=== PATIENT | female | born 1965 | race Caucasian/White ===

== ENCOUNTER 2021-12-16 11:33 | Outpatient (REF) | payer OTHER, SELFPAY | END 2021-12-16 11:34 | disposition home or self-care (01) | LOC: HO.LNP 11:33 | PROVIDERS: Visit Provider Hospitalist | DX: Z11.3 Encounter for screening for infections with a predominantly sexual mode of transmission (principal) | CPT/HCPCS: 87086 ==

== ENCOUNTER 2021-12-23 12:09 | Outpatient (REF) | payer OTHER, SELFPAY | END 2021-12-23 12:10 | disposition home or self-care (01) | LOC: HO.LNP 12:09 | PROVIDERS: Visit Provider Hospitalist | DX: N32.81 Overactive bladder (principal); Z11.3 Encounter for screening for infections with a predominantly sexual mode of transmission | CPT/HCPCS: 87086 ==

== ENCOUNTER 2021-12-26 12:11 | Inpatient (IN) | payer OTHER, SELFPAY ==
--- NOTE | ~2021-12-26 | CT_ITS ---
EXAMINATION: CT-GUIDED RETROPERITONEAL LYMPH NODE BIOPSY CLINICAL INFORMATION: Lymphadenopathy and peritoneal disease. Bilateral hydronephrosis. COMPARISON: Previous CT of the abdomen and pelvis 12/26/2021. TECHNIQUE: The procedure risks and benefits including bleeding and infection were discussed with the patient and informed consent was obtained. The patient was positioned in the prone position. Limited axial images through the lower abdomen were performed. The left back was prepped and draped in the usual sterile fashion. The skin and soft tissues were anesthetized with 1% lidocaine plain. Using CT guidance and a coaxial system, access to an enlarged left retroperitoneal lymph node was obtained. Five 20-gauge core biopsies and two 22-gauge FNA specimens were obtained. The patient received Versed 2 mg and fentanyl 100 mcg intravenously during the procedure. Conscious sedation was provided by a registered nurse under my direct supervision with continuous hemodynamic monitoring. Total sedation time was 32 minutes. FINDINGS: There is an enlarged left retroperitoneal lymph node that was targeted for core biopsy and fine-needle aspiration. There are bilateral internal ureteral stents. There is air in the renal collecting systems likely related to recent stent placement. CT/CT guided FNA IMPRESSION: CT-guided left retroperitoneal lymph node biopsy and fine-needle aspiration.
--- NOTE | ~2021-12-26 | CT_ITS ---
EXAMINATION: CT ABDOMEN AND PELVIS WITHOUT CONTRAST CLINICAL INFORMATION: Acute renal failure COMPARISON: None TECHNIQUE: Multidetector volumetric imaging was performed from the superior aspect of the liver through the pubic symphysis. Sagittal and coronal reformatted images were obtained on the technologist's workstation. This CT examination was performed using dose optimization techniques as appropriate, variously including the following: *Automated exposure control *Adjustment of mA and/or kV according to patient size (this includes techniques or standardized protocols for targeted exams where dose is matched to indication/reason for exam; i.e. extremities or head) *Use of iterative reconstruction technique DLP: 1020 mGy-cm FINDINGS: LUNG BASES: The visualized lung bases are unremarkable. LIVER, GALLBLADDER, AND BILIARY TREE: Heterogeneous low-attenuation change within the liver suspicious for either infiltrative metastatic disease and/or geographic hepatic steatosis. No biliary dilatation. Gallbladder unremarkable. PANCREAS: Unremarkable. SPLEEN: Unremarkable. ADRENAL GLANDS: Unremarkable. KIDNEYS AND URETERS: [id number] bilateral hydronephrosis and hydroureter. Both ureters are mildly dilated throughout their course all the way to the bladder. While the left ureter courses adjacent to malignant lymphadenopathy in the retroperitoneum, this does not appear to be a cause of ureteral obstruction on the left. Mild bilateral perinephric stranding. BLADDER: Collapsed and poorly assessed. GASTROINTESTINAL TRACT / PERITONEUM: Sigmoid colonic diverticulosis. There is focal thickening of the midportion of the sigmoid colon (see porter images) concerning for a sigmoid colonic mass. There is adjacent left iliac chain lymphadenopathy. Multiple peritoneal implants identified within the deep pelvis and bilateral lower quadrants as well as within the anterior pelvic peritoneal reflexion. LYMPH NODES: No pathologically enlarged left iliac chain and retroperitoneal lymph nodes are present, most notably in the left para-aortic region. ABDOMINAL WALL: No significant hernia is appreciated. PELVIC VISCERA: Uterus and ovaries are unremarkable from a nonenhanced CT standpoint. VASCULAR: Aorta atherosclerotic but normal caliber. OSSEOUS STRUCTURES: There is a lucent lesion in the S1 vertebral body associated with superior endplate collapse. This could represent intervertebral disc herniation or pathologic fracture. A smaller lucency is present within the T10 vertebral body subjacent to the superior endplate with mild superior plate fracturing. CT/CT abdomen pelvis wo IV con IMPRESSION: * Probable sigmoid colonic mass. 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 Scattered peritoneal implants most notably in the bilateral lower quadrants. One of the peritoneal implants or pathologic lymph nodes would be fairly easy to sample by CT-guided biopsy. * [id number] hydronephrosis and perinephric stranding as well as hydroureter leading to the bladder, without clear mechanical obstructive etiology evident. It is possible that peritoneal implants in the region of the ureterovesical junctions could be the etiology. * Heterogeneously attenuating hepatic parenchyma concerning for infiltrative metastatic disease and/or hepatic steatosis. * Possible osseous metastases, particularly within the S1 vertebral body with accompanying fracturing of the superior endplate.
--- NOTE | ~2021-12-26 | CT_ITS ---
EXAMINATION: CT-GUIDED RETROPERITONEAL LYMPH NODE BIOPSY CLINICAL INFORMATION: Lymphadenopathy and peritoneal disease. Bilateral hydronephrosis. COMPARISON: Previous CT of the abdomen and pelvis 12/26/2021. TECHNIQUE: The procedure risks and benefits including bleeding and infection were discussed with the patient and informed consent was obtained. The patient was positioned in the prone position. Limited axial images through the lower abdomen were performed. The left back was prepped and draped in the usual sterile fashion. The skin and soft tissues were anesthetized with 1% lidocaine plain. Using CT guidance and a coaxial system, access to an enlarged left retroperitoneal lymph node was obtained. Five 20-gauge core biopsies and two 22-gauge FNA specimens were obtained. The patient received Versed 2 mg and fentanyl 100 mcg intravenously during the procedure. Conscious sedation was provided by a registered nurse under my direct supervision with continuous hemodynamic monitoring. Total sedation time was 32 minutes. FINDINGS: There is an enlarged left retroperitoneal lymph node that was targeted for core biopsy and fine-needle aspiration. There are bilateral internal ureteral stents. There is air in the renal collecting systems likely related to recent stent placement. CT/CT biopsy abdomen percutaneous IMPRESSION: CT-guided left retroperitoneal lymph node biopsy and fine-needle aspiration.
--- NOTE | ~2021-12-26 | FL_ITS ---
EXAMINATION: XR FLUOROSCOPY WITH IMAGES CLINICAL INFORMATION: Cystoscopy. Stent placement. COMPARISON: 12/26/2021 TECHNIQUE: Fluoroscopy performed by Dr. Deshawn Kinney. Fluoroscopy time: 55.6 seconds. Cumulative Dose: 41.02 mGy. Images: 5. FINDINGS: There is cannulation of the right ureter. Injection of contrast which shows a dilated ureter. A right ureteral stent is placed. There is then injection of contrast on the left showing a dilated ureter. A left ureteral stent is placed. FL/FL guidance in OR IMPRESSION: Fluoroscopic guidance for bilateral pyelogram and ureteral stent placement. Please refer to procedural report for further information.
--- NOTE | ~2021-12-26 | CT_ITS ---
EXAMINATION: CT-GUIDED RETROPERITONEAL LYMPH NODE BIOPSY CLINICAL INFORMATION: Lymphadenopathy and peritoneal disease. Bilateral hydronephrosis. COMPARISON: Previous CT of the abdomen and pelvis 12/26/2021. TECHNIQUE: The procedure risks and benefits including bleeding and infection were discussed with the patient and informed consent was obtained. The patient was positioned in the prone position. Limited axial images through the lower abdomen were performed. The left back was prepped and draped in the usual sterile fashion. The skin and soft tissues were anesthetized with 1% lidocaine plain. Using CT guidance and a coaxial system, access to an enlarged left retroperitoneal lymph node was obtained. Five 20-gauge core biopsies and two 22-gauge FNA specimens were obtained. The patient received Versed 2 mg and fentanyl 100 mcg intravenously during the procedure. Conscious sedation was provided by a registered nurse under my direct supervision with continuous hemodynamic monitoring. Total sedation time was 32 minutes. FINDINGS: There is an enlarged left retroperitoneal lymph node that was targeted for core biopsy and fine-needle aspiration. There are bilateral internal ureteral stents. There is air in the renal collecting systems likely related to recent stent placement. CT/CT guided needle placement IMPRESSION: CT-guided left retroperitoneal lymph node biopsy and fine-needle aspiration.
[2021-12-26 13:30] VITALS: PULSE 129; RESP 18; TEMP 36.7; O2SAT 98; BMI 49.4
[2021-12-26 13:39] VITALS: BP 200/110
--- NOTE | 2021-12-26 17:12 | ED_ITS ---
HPI - Female Genitourinary General Chief complaint: Urogenital-Female Stated complaint: Urinary Issue Time Seen by Provider: 12/26/21 16:28 Source: patient Mode of arrival: ambulatory History of Present Illness HPI Narrative: 56-year-old female with a past medical history of recurrent UTIs presenting to the ED complaining of urinary frequency/urgency and intermittent dysuria and hematuria since yesterday. Admits was recently treated for to UTI with Macrobid followed by Bactrim however cultures are not growing anything. Also reports some urinary retention, has been unable to supply UA since ED arrival which patient reports is due to anxiety. Denies fever, chills, nausea, vomiting, abdominal pain, flank pain MD elicited complaint: dysuria and UTI Related Data Home Medications Medication Instructions Recorded Confirmed No Known Home Meds 12/16/21 12/16/21 Allergies Allergy/AdvReac Type Severity Reaction Status Date / Time neomycin Allergy Intermediate Rash Verified 12/16/21 12:30 parafin wax Allergy Intermediate Rash Uncoded 12/26/21 13:49 Review of Systems Review of Systems: Constitutional: No Fever, No Chills, No Malaise ENT/Mouth: No Hearing loss, No Ear Pain, No sore throat, No Rhinorrhea, No Swall owing Difficulty Eyes: No Eye Pain, No Swelling, No Redness Cardiovascular: No Chest Pain, No SOB, No Palpitations Respiratory: No Cough, No Sputum, No Wheezing, No Smoke Exposure, No Dyspnea Gastrointestinal: No Nausea, No Vomiting, No Diarrhea, No Constipation, No Abdominal pain Genitourinary: No irregular bleeding, + Dysuria, + Urinary Frequency, No Hematuria, No Urinary Incontinence/retention, + Urgency, No Flank Pain, No Urinary Flow Changes, No Hesitancy Musculoskeletal: No joint pain, No Myalgias, No Joint Swelling Skin: No Skin Lesions, No rash Neuro: No Weakness, No Headache Yes all other systems are reviewed and are negative Constitutional: Constitutional: Reports as per [facility] Past Medical History Attestation statement: The following information was validated with the patient. Social History Social History Patient Tobacco Use Status: Never used Tobacco Advance Directives: No Advance Directives Information Provided: No Physical Exam Vital Signs: Vital Signs: Last Vital Signs Temp 97.7 F 12/26/21 17:30 Pulse 118 H 12/26/21 19:54 Resp 14 12/26/21 19:54 BP 222/109 H 12/26/21 19:54 Pulse Ox 96 12/26/21 19:54 O2 Del Method 12/26/21 19:54 BMI result Body Mass Index 49.4 Const: General: cooperative, healthy appearing, no acute distress, alert, awake, Physically active and anxious Orientation/consciousness: patient oriented x3 Limitations: no limitations HEENT: Head: Yes normal to inspection and Yes atraumatic Ears: hearing gr ossly normal bilaterally General nose exam: Normal external nose present Face and sinus: Yes normal facial exam Eyes: General: appearance normal, both eyes and all related structures EOM: EOMs intact bilaterally Neck: Neck: Yes normal visual inspection and Yes no meningeal signs Resp: Effort & Inspection: normal respiratory effort and no respiratory distr ess Auscultation: clear to auscultation bilaterally Cardio: Rate: regular rate Heart sounds: S1 normal heart sound present and S2 normal heart sound present GI: Inspection: Yes normal to inspection Palpation (GI): Soft to palpation, nontender, no guarding and not rigid : General: Yes no CVA tenderness Back/Spine/Pelvis: Back: no CVA tenderness Skin: Rashes: no rashes Wounds: no wounds Neuro: General: patient oriented x3, tone normal and no meningeal signs Gait exam (Neuro): Normal gait present Extrem: General: Yes normal to inspection Course Course Course Narrative: -1732--bladder scan had 12 cc > will obtain CBC/BMP to evaluate renal function and p.o. hydrate patient so she can provide urine sample -2019--patient is in acute renal failure with a BUN of 76 and Creatinine 11.49 > possibly from urinary retention versus hypertensive emergency. Likely subacute. 10mg of IV labetalol ordered. Patient is nontoxic appearing, ambulating in the ED, still has not supplied urine. Infection is now suspected > will obtain additional bladder scan after patient has void trial as well as CT. Noted leukocytosis of 15.4. Empiric IV Rocephin ordered 2099--ED care transferred to Dr. Quezada pending CT, UA, BP control, and admission MDM - Female Genitourinary MDM Narrative Medical decision making narrative: 56-year-old female with a past medical history of recurrent UTIs presenting to the ED complaining of urinary frequency/urgency and intermittent dysuria and hematuria since yesterday. On exam anxious, hypertensive and tachycardic likely from anxiety & patient reports history of white coat syndrome and chronic tachycardia, NAD, nontoxic appearing, abdomen soft/nontender, no CVA tenderness. Concern for cystitis vs UTI. Low suspicion for pyelonephritis/renal stone or appendicitis/diverticulitis. Low suspicion for severe sepsis at this time Plan: UA, bladder scan Differential Diagnosis Differential diagnosis: Likely urinary tract infection and vaginitis Medical Records Attestation: I reviewed the patient's medical records. Lab Data Attestation: I reviewed the patient's lab results. Result diagrams: 12/26/21 19:49 12/26/21 19:49 Labs: Lab Results 12/26/21 12/26/21 Range/Units 19:49 19:49 WBC 15.4 H (4.8-10.8) X10*3/uL RBC 4.45 (4.20-5.50) X10*6/uL Hgb 12.1 (12.0-16.0) g/dl Hct 36.1 L (37.0-47.0) % MCV 81.1 (80.0-98.0) fL MCH 27.2 (27.0-33.0) pg MCHC 33.5 (31.0-35.0) g/dl RDW 14.0 (11.0-16.0) % Plt Count 250 (160-400) X10*3/uL MPV 8.8 L (9.4-12.3) fL Immature Gran % (Auto) 0.7 H (0.0-0.4) % Neut % (Auto) 78.6 H (45-73) % Lymph % (Auto) 15.5 L (20-40) % [place] % (Auto) 4.1 (2-11) % Eos % (Auto) 0.8 (0-4) % Baso % (Auto) 0.3 (0-2) % Lymph # (Auto) 2.4 (1.2-4.9) X10*3/uL [place] # (Auto) 0.6 (0.1-1.2) X10*3/uL Eos # (Auto) 0.1 (0.0-0.4) X10*3/uL Baso # (Auto) 0.0 (0.0-0.2) X10*3/uL Abs Immat Gran (auto) 0.11 H (0.00-0.03) X10*3/uL Absolute Neuts (auto) 12.1 H (2.0-8.3) x10*3/uL Absolute Nucleated RBC 0.000 (0.0-0.012) X10*3/uL Nucleated RBC % (auto) 0.0 (0.0-0.2) /100WBC Sodium 137 (135-145) mmol/L Potassium 4.5 (3.3-5.1) mmol/L Chloride 103 (96-108) mmol/L Carbon Dioxide 13 L (22-29) mmol/L Anion Gap 26 H (12-20) BUN 76 H (9-16) mg/dL Creatinine 11.49 H* (0.5-1.4) mg/dL Estim Creat Clear Calc 6.9 Estimated GFR 3 Random Glucose 130 H (60-115) mg/dL Calcium 8.6 (8.4-10.2) mg/dL Magnesium 2.0 (1.6-2.6) mg/dL Total Bilirubin 0.7 (0.0-1.0) mg/dL Direct Bilirubin 0.3 (0.0-0.5) mg/dL AST 34 H (5-31) U/L ALT 51 H (0-31) U/L Alkaline Phosphatase 214 H (39-117) U/L Total Protein 6.7 (6.5-8.0) g/dL Albumin 3.8 (3.5-5.0) g/dL Lipase 46 (8-78) U/L ECG Data Attestation: I personally reviewed and interpreted this ECG as follows: ECG interpretation date: 12/26/21 ECG interpretation time: 20:47 Interpretation: EKG sinus tachycardia rate of 117. QTC 449. No STEMI. Critical Care Time Critical Care Time Critical Care Time: Yes Total Critical Care Time: 45 Attestation: I have personally provided critical care time exclusive of time spent on separately billable procedures. Time includes review of lab data, radiology results, discussion with consultants, and monitoring for potential decompensation. Intervention performed as documented. Discharge Plan Discharge Clinical Impression: Acute renal failure, Hypertensive emergency Patient Disposition: Admitted As Inpatient
[2021-12-26 17:30] VITALS: BP 207/101; PULSE 119; RESP 20; TEMP 36.5; O2SAT 97
[2021-12-26] MEDS: LORazepam 0.5 MG TABLET PO (18:46)
--- NOTE | 2021-12-26 18:47 | PC.NURSE ---
Provider aware of BP
[2021-12-26] MEDS: 0.9 % Sodium Chloride 1,000 ML 999 ML IV ×2 (19:51→22:05)
[2021-12-26 19:54] VITALS: BP 222/109; PULSE 118; RESP 14; O2SAT 96
[2021-12-26 19:55] LABS: MANUAL DIFF FLAG NO
[2021-12-26 19:57] LABS: Basophils Percent Auto 0.3 % (0-2); Eosinophils Absolute Auto 0.1 X10*3/uL (0.0-0.4); Eosinophils Percent Auto 0.8 % (0-4); Hematocrit 36.1 % (37.0-47.0); Hemoglobin 12.1 g/dl (12.0-16.0); Imm Gran Abs Auto 0.11 X10*3/uL (0.00-0.03); Imm Gran Pct Auto 0.7 % (0.0-0.4); Lymphocytes Absolute Auto 2.4 X10*3/uL (1.2-4.9); Lymphocytes Percent Auto 15.5 % (20-40); Mean Corpuscular HGB Conc 33.5 g/dl (31.0-35.0); Mean Corpuscular Hemoglobin 27.2 pg (27.0-33.0); Mean Corpuscular Volume 81.1 fL (80.0-98.0); Mean Platelet Volume 8.8 fL (9.4-12.3); Monocytes Absolute Auto 0.6 X10*3/uL (0.1-1.2); Monocytes Percent Auto 4.1 % (2-11); Neutrophils Absolute Auto 12.1 x10*3/uL (2.0-8.3); Neutrophils Percent Auto 78.6 % (45-73); Platelet Count 250 X10*3/uL (160-400); Red Blood Count 4.45 X10*6/uL (4.20-5.50); White Blood Count 15.4 X10*3/uL (4.8-10.8)
[2021-12-26 20:15] LABS: Anion Gap 26 (12-20); Blood Urea Nitrogen 76 mg/dL (9-16); Calcium 8.6 mg/dL (8.4-10.2); Carbon Dioxide 13 mmol/L (22-29); Chloride 103 mmol/L (96-108); Creatinine Clr Calc Pharmacy 6.9; Estimated Glomerular Filt Rate 3; Glucose Random 130 mg/dL (60-115); Potassium 4.5 mmol/L (3.3-5.1); Sodium 137 mmol/L (135-145)
[2021-12-26 20:34] LABS: Alanine Aminotransferase 51 U/L (0-31); Albumin Level 3.8 g/dL (3.5-5.0); Alkaline Phosphatase 214 U/L (39-117); Aspartate Amino Transferase 34 U/L (5-31); Bilirubin Direct 0.3 mg/dL (0.0-0.5); Bilirubin Total 0.7 mg/dL (0.0-1.0); Lipase 46 U/L (8-78); Total Protein 6.7 g/dL (6.5-8.0)
--- NOTE | 2021-12-26 20:35 | ECG_ITS ---
Test Reason : HTN Blood Pressure : / mmHG Vent. Rate : 117 BPM Atrial Rate : 117 BPM P-R Int : 138 ms QRS Dur : 070 ms QT Int : 322 ms P-R-T Axes : 051 035 050 degrees QTc Int : 449 ms Sinus tachycardia Possible Left atrial enlargement Borderline ECG No previous ECGs available Referred By: Jane Wayne Electronically Signed By:ERROL MIRELES
[2021-12-26] MEDS: Labetalol HCL 100 MG/20 ML VIAL 10 MG IVPUSH (21:05)
--- NOTE | 2021-12-26 21:05 | PC.NURSE ---
Original order for labetalol was unavailable in the pyxis. Called pharmacy and they adjusted order accordingly. Duplicate orders in, provider aware.
[2021-12-26] MEDS: Sodium Bicarbonate 8.4% 50 MEQ/50 ML SYRINGE IVPUSH (22:05)
[2021-12-26 22:14] VITALS: BP 108/75; PULSE 83; RESP 18; TEMP 36.8; O2SAT 96
[2021-12-26 22:22] LABS: Lactic Acid 0.7 mmol/L (0.5-2.0)
[2021-12-26 22:33] LABS: Anion Gap 27 (12-20); Blood Urea Nitrogen 76 mg/dL (9-16); Calcium 8.3 mg/dL (8.4-10.2); Carbon Dioxide 10 mmol/L (22-29); Chloride 104 mmol/L (96-108); Creatinine Clr Calc Pharmacy 6.9; Estimated Glomerular Filt Rate 3; Glucose Random 140 mg/dL (60-115); Potassium 4.8 mmol/L (3.3-5.1); Sodium 136 mmol/L (135-145)
[2021-12-26 22:35] LABS: COVID-19 Test Negative (Negative)
[2021-12-26 22:39] LABS: INTERNATIONAL NORM RATIO 1.2 (0.9-1.1); Prothrombin Time 13.7 SEC (10.0-13.1)
--- NOTE | 2021-12-26 22:57 | PM.IMHP ---
History of Present Illness Date of Service: 12/26/21 Chief Complaint: Urinary incontinence 56-year-old with no significant past medical history presented to the hospital today with a chief complaint of difficulty urination. Patient mentioned that over the past 2 months she has been having urinary complaints, has been having urinary frequency urgency initially, has seen urgent care at least couple times and has received antibiotics as outpatient. Denies any fevers and chills. Denies any abdominal pain. Denies any chest pain or palpitations. Denies any prior history of hypertension, reports he has white coat hypertension. Denies taking any home medications. Denies any smoking or illicit drug use. Denies any headaches blurry visions, numbness tingling or focal weakness. Review of all other systems is negative except mentioned above ER course: Per ER team patient's urinalysis was negative, exam was benign, on labs noted to have elevated creatinine of 1.49, low bicarb; patient was started on bicarb drip. CT scan showed pelvic mass-sigmoid colon mass/retroperitoneal lymphadenopathy/moderate hydronephrosis and perinephric stranding as well as hydroureter leading to the bladder without tear mechanical obstructive etiology possible osseous metastasis. Concerning for cancer. Urology Dr. Kinney was notified-recommended judicious fluids and will place a stent in the morning. Admitted for further management PMFSH Pertinent family history: Father has heart disease Surgical History (Updated 12/31/21 @ 18:34 by Kai Hall MD) History of tonsillectomy [place] teeth extracted Social History (Updated 12/28/21 @ 16:58 by Iman León MD) Household Members: Other Household Members Other:: roommate Housing: House Do you presently have visiting nurse or other home services: No Patient Tobacco Use Status: Never used Tobacco service: No Current occupational status: employed Meds Allergies Allergy/AdvReac Type Severity Reaction Status Date / Time neomycin Allergy Intermediate Rash Verified 12/16/21 12:30 paraben Allergy Rash Verified 12/30/21 07:28 Active Medications: Current Medications Sodium Bicarbonate 150 meq/ (Dextrose) 1,000 mls @ 100 mls/hr IV .Q10H OMID Physical Exam Vital Signs and Narrative: Vital Signs: Last Vital Signs Temp 98.3 F 12/26/21 22:14 Pulse 83 12/26/21 22:14 Resp 18 12/26/21 22:14 BP 108/75 12/26/21 22:14 Pulse Ox 96 12/26/21 22:14 O2 Del Method 12/26/21 22:14 BMI result Body Mass Index 49.4 Gen: Appears be in no acute distress HEENT: NCAT, Moist mucosa. Pulmonary: Vesicular breath sounds, fair air entry CVS: Normal S1-S2 Abdomen: BS+, Soft, Nontender Extremities: Warm well perfused Neuro: Alert and awake. Results Labs CBC and Chem 7: 01/02/22 06:03 01/02/22 06:03 Labs: Laboratory Results - last 24 hr 12/26/21 12/26/21 12/26/21 19:49 19:49 21:59 MCV 81.1 MCH 27.2 MCHC 33.5 RDW 14.0 Plt Count 250 MPV 8.8 L Immature Gran % (Auto) 0.7 H Neut % (Auto) 78.6 H Lymph % (Auto) 15.5 L [place] % (Auto) 4.1 Eos % (Auto) 0.8 Baso % (Auto) 0.3 Lymph # (Auto) 2.4 [place] # (Auto) 0.6 Eos # (Auto) 0.1 Baso # (Auto) 0.0 Abs Immat Gran (auto) 0.11 H Absolute Neuts (auto) 12.1 H Absolute Nucleated RBC 0.000 Nucleated RBC % (auto) 0.0 PT 13.7 H INR 1.2 H Anion Gap 26 H Estim Creat Clear Calc 6.9 Estimated GFR 3 Random Glucose 130 H Lactic Acid Calcium 8.6 Magnesium 2.0 Total Bilirubin 0.7 Direct Bilirubin 0.3 AST 34 H ALT 51 H Alkaline Phosphatase 214 H Total Protein 6.7 Albumin 3.8 Lipase 46 COVID-19 ([facility]) COVID-19 Clin Com 12/26/21 12/26/21 12/26/21 21:59 21:59 22:00 MCV MCH MCHC RDW Plt Count MPV Immature Gran % (Auto) Neut % (Auto) Lymph % (Auto) [place] % (Auto) Eos % (Auto) Baso % (Auto) Lymph # (Auto) [place] # (Auto) Eos # (Auto) Baso # (Auto) Abs Immat Gran (auto) Absolute Neuts (auto) Absolute Nucleated RBC Nucleated RBC % (auto) PT INR Anion Gap 27 H Estim Creat Clear Calc 6.9 Estimated GFR 3 Random Glucose 140 H Lactic Acid 0.7 Calcium 8.3 L Magnesium Total Bilirubin Direct Bilirubin AST ALT Alkaline Phosphatase Total Protein Albumin Lipase COVID-19 ([facility]) Negative COVID-19 Clin Com See Note Assessment and Plan (1) FLOR (acute kidney injury): Status: Acute Plan 56-year-old with no significant past medical history presented to the hospital today with a chief complaint of difficulty urination. CT abdomen showed moderate hydronephrosis/perinephric stranding/hydroureter/retroperitoneal lymphadenopathy/sigmoid colonic mass/bony metastasis. Admitted to the hospital for further management Difficulty urination/moderate hydronephrosis/hydroureter/hydronephrotic stranding: Patient has mild leukocytosis. Received ceftriaxone. UA pending. Will continue antibiotics based on the UA results. urology Dr. Kinney was notified-mentioned -will place stent in the morning FLOR: Likely postrenal. Patient also noted a low serum bicarb. Started on serum bicarbonate drip. Nephrology consult Avoid nephrotoxins Sigmoid colon mass/retroperitoneal lymphadenopathy/bony metastasis/S1 endplate fracture: Oncology consult for further inputs. Will obtain CEA and AFP levels. Hypertensive urgency: Patient's systolic blood pressure in 200s on presentation. Denies being on any antihypertensives at home. Labetalol p.r.n.. Patient received amlodipine 5 mg. DVT prophylaxis: Subcu heparin Code status: Full code Quality Stroke Does the patient have a stroke diagnosis?: No VTE Prior VTE?: No VTE Risk Level:: Medical - moderate - high VTE Device Contraindication: Treatment Not Indicated VTE Drug Contraindication: N/A - Med Ordered
[2021-12-26 23:02] VITALS: BP 204/104; PULSE 111; RESP 28; O2SAT 96
[2021-12-26] MEDS: Sodium Bicarbonate 8.4% 150 MEQ in Dextrose 5 % 850 ML 100 MEQ IV (23:21)
[2021-12-26] MEDS: Heparin Sodium,Porcine 5,000 UNIT/ML VIAL 5000 UNIT SUBCUT (23:32)
[2021-12-26] MEDS: amLODIPine Besylate 5 MG TABLET PO (23:32)
[2021-12-26] MEDS: 0.9 % Sodium Chloride Flush 3 ML SYRINGE IVFLUSH (23:33)
[2021-12-27] VITALS (10 sets, daily range): BP systolic 167–205; BP diastolic 80–111; PULSE 86–123; RESP 16–20; TEMP 36.7–37.4; O2SAT 94–97
[2021-12-27 05:01] LABS: Basophils Percent Auto 0.3 % (0-2); Eosinophils Absolute Auto 0.2 X10*3/uL (0.0-0.4); Hematocrit 35.3 % (37.0-47.0); Hemoglobin 11.8 g/dl (12.0-16.0); Imm Gran Abs Auto 0.11 X10*3/uL (0.00-0.03); Imm Gran Pct Auto 0.8 % (0.0-0.4); Lymphocytes Absolute Auto 2.3 X10*3/uL (1.2-4.9); Lymphocytes Percent Auto 15.8 % (20-40); MANUAL DIFF FLAG NO; Mean Corpuscular HGB Conc 33.4 g/dl (31.0-35.0); Mean Corpuscular Hemoglobin 27.1 pg (27.0-33.0); Mean Corpuscular Volume 81.1 fL (80.0-98.0); Mean Platelet Volume 8.6 fL (9.4-12.3); Monocytes Absolute Auto 0.6 X10*3/uL (0.1-1.2); Monocytes Percent Auto 4.2 % (2-11); Neutrophils Absolute Auto 11.4 x10*3/uL (2.0-8.3); Neutrophils Percent Auto 77.9 % (45-73); Platelet Count 231 X10*3/uL (160-400); Red Blood Count 4.35 X10*6/uL (4.20-5.50); Red Cell Distribution Width 13.9 % (11.0-16.0); White Blood Count 14.6 X10*3/uL (4.8-10.8)
[2021-12-27 05:29] LABS: Anion Gap 24 (12-20); Blood Urea Nitrogen 76 mg/dL (9-16); Carbon Dioxide 15 mmol/L (22-29); Chloride 103 mmol/L (96-108); Creatinine Clr Calc Pharmacy 6.9; Estimated Glomerular Filt Rate 3; Glucose Random 160 mg/dL (60-115); Potassium 4.5 mmol/L (3.3-5.1); Sodium 137 mmol/L (135-145)
--- NOTE | 2021-12-27 07:16 | PHA.MEDREC ---
Pharmacy Consult ? Medication Reconciliation Pharmacy has completed the medication reconciliation.
[2021-12-27] MEDS: Heparin Sodium,Porcine 5,000 UNIT/ML VIAL 5000 UNIT SUBCUT ×2 (08:30→16:14)
[2021-12-27] MEDS: amLODIPine Besylate 10 MG TABLET PO (09:53)
[2021-12-27] MEDS: Sodium Bicarbonate 8.4% 150 MEQ in Dextrose 5 % 850 ML 100 MEQ IV ×2 (09:53→23:01)
--- NOTE | 2021-12-27 10:57 | MHC.CM.PN ---
PT REPORTS SHE LIVES AT HOME AND A FRIEND IS CURRENTLY LIVING WITH HER SHE REPORTS SHE IS INDEPENDENT AND WORKS IN HEALTHCARE SHE DENIES USING DME OR HOME SERVICES PT REPORTS SHE HAS A HCP, NAMING HER FRIEND, SUSIE ARCOS HER AGENT PT REPORTS SHE IS COVID VACCINATED AND BOOSTED PT REPORTS SHE CURRENTLY IS NOT ESTABLISHED WITH A PCP BUT HAS A NEW PT APPT WITH [facility] ON Dec CURRENT DC PLAN IS HOME WITH NO SERVICES PT TO ARRANGE TRANSPORT PT REQUESTS THAT INFORMATION BE SHARED WITH THE FOLLOWING PEOPLE IF THEY CALL: SUSIE MANCIA
--- NOTE | 2021-12-27 11:09 | W.PM.OPN ---
Operative Note Operative Note Date of Service: 12/27/21 Narrative: Consulting complaint bilateral hydroureteronephrosis Alma Delia is a 56-year-old female Had been seen in urgent care for urgency and frequency of past few weeks Presented to the hospital with difficulty urinating Found to have bilateral hydronephrosis with elevated white count, deranged labs and a question of a metastatic process in the pelvis Current BP 200/92 BUN 76, creatinine 11
--- NOTE | 2021-12-27 11:12 | PM.UROCN ---
History of Present Illness Consult details Consult date: 12/27/21 Narrative: Consulting complaint bilateral hydroureteronephrosis Alma Delia is a 56-year-old female Had been seen in urgent care for urgency and frequency of past few weeks Presented to the hospital with difficulty urinating Found to have bilateral hydronephrosis with elevated white count, deranged labs and a question of a metastatic process in the pelvis Current BP 200/92 BUN 76, creatinine 11, potassium 4.5 Recommend Lopez catheter with IV fluid replacement for dehydration Will need bilateral retrograde and stent placement which can be schedule for tomorrow [facility] Social History Social History Household Members: Other Household Members Other:: roommate Housing: House Do you presently have visiting nurse or other home services: No Patient Tobacco Use Status: Never used Tobacco Use of substances other than those prescribed or required for medical reasons: No Have you been hit, kicked, punched, or otherwise hurt by someone within the past year? If so, by whom?: No Do you feel safe in your current relationship?: No Current Relationship Is there a partner from a previous relationship who is making you feel unsafe now?: No Are you made to feel afraid or neglected: No Advance Directives: No Advance Directives Information Provided: No Do you have thoughts of harming others: None Do you have a plan to hurt others: No Plan Recently lost weight without trying: Yes How much weight loss: 2-13 pounds Eating poorly because of decreased appetite: Yes Nutrition screen score: 4 Nutrition Risks: No Nutritional Risk Patient : No : No Poor oral hygiene: No service: No Current occupational status: employed Meds Allergies Allergy/AdvReac Type Severity Reaction Status Date / Time neomycin Allergy Intermediate Rash Verified 12/16/21 12:30 parafin wax Allergy Intermediate Rash Uncoded 12/26/21 13:49 Active Medications: Current Medications Acetaminophen (Acetaminophen 325 Mg Tablet) 650 mg PO Q6H PRN PRN Reason: Pain, Mild (Pain Scale 1-3) Amlodipine Besylate (Amlodipine Besylate 10 Mg Tablet) 10 mg PO DAILY [facility]; Protocol Last Admin: 12/27/21 09:53 Dose: 10 mg Heparin Sodium (Porcine) (Heparin Sodium,Porcine 5,000 Unit/Ml Vial) 5,000 unit SUBCUT Q8H [facility] Last Admin: 12/27/21 08:30 Dose: 5,000 unit Hydralazine HCl (Hydralazine Hcl 10 Mg Tablet) 10 mg PO TID [facility]; Protocol Sodium Bicarbonate 150 meq/ (Dextrose) 1,000 mls @ 100 mls/hr IV .Q10H [facility] Last Admin: 12/27/21 09:53 Dose: 100 mls/hr Labetalol HCl (Labetalol Hcl 100 Mg/20 Ml Vial) 10 mg IVPUSH Q4H PRN PRN Reason: BP>160/90 Melatonin (Melatonin 3 Mg Tablet) 6 mg PO BEDTIME PRN PRN Reason: Insomnia Sodium Chloride (0.9 % Sodium Chloride Flush 3 Ml Syringe) 3 ml IVFLUSH QSHIFT [facility] Last Admin: 12/27/21 06:58 Dose: Not Given Home Medications Medication Instructions Recorded Confirmed Last Taken Type No Known Home Meds 12/16/21 12/27/21 Unknown History Physical Exam Vital Signs: Vital Signs: Last Vital Signs Temp 99.3 F 12/27/21 09:38 Pulse 107 H 12/27/21 09:38 Resp 20 12/27/21 09:38 BP 202/92 H 12/27/21 09:38 Pulse Ox 96 12/27/21 09:38 O2 Del Method 12/27/21 09:38 BMI result Body Mass Index 49.4 Const: General: cooperative, healthy appearing, comfortable and no acute distress Orientation/consciousness: patient oriented x3 HEENT: Face and sinus: Yes normal facial exam Mouth: moist mucous membranes Neck: Neck: Yes normal visual inspection, Yes full ROM and Yes trachea midline Chest: Chest palpation & inspection: normal inspection of the chest Resp: Effort & Inspection: normal respiratory effort, able to speak in complete sentences and no respiratory distress GI: Inspection: Yes normal to inspection Back/Spine/Pelvis: Cervical Spine: normal cervical lordosis Thoracic/Lumbar Spine: thoracic and lumbar spine normal to inspection Skin: General skin exam: no rashes or lesions noted Neuro: General: patient oriented x3, tone normal and moves all extremities Extrem: General: Yes normal to inspection and Yes capillary refill normal Results Labs Result diagrams: 12/27/21 04:55 12/27/21 04:55 Labs: Abnormal lab results 12/26/21 12/26/21 12/26/21 Range/Units 19:49 19:49 21:59 WBC 15.4 H (4.8-10.8) X10*3/uL Hgb (12.0-16.0) g/dl Hct 36.1 L (37.0-47.0) % MPV 8.8 L (9.4-12.3) fL Immature Gran % (Auto) 0.7 H (0.0-0.4) % Neut % (Auto) 78.6 H (45-73) % Lymph % (Auto) 15.5 L (20-40) % Abs Immat Gran (auto) 0.11 H (0.00-0.03) X10*3/uL Absolute Neuts (auto) 12.1 H (2.0-8.3) x10*3/uL PT 13.7 H (10.0-13.1) SEC INR 1.2 H (0.9-1.1) Carbon Dioxide 13 L (22-29) mmol/L Anion Gap 26 H (12-20) BUN 76 H (9-16) mg/dL Creatinine 11.49 H* (0.5-1.4) mg/dL Random Glucose 130 H (60-115) mg/dL Calcium (8.4-10.2) mg/dL AST 34 H (5-31) U/L ALT 51 H (0-31) U/L Alkaline Phosphatase 214 H (39-117) U/L 12/26/21 12/27/21 12/27/21 Range/Units 22:00 04:55 04:55 WBC 14.6 H (4.8-10.8) X10*3/uL Hgb 11.8 L (12.0-16.0) g/dl Hct 35.3 L (37.0-47.0) % MPV 8.6 L (9.4-12.3) fL Immature Gran % (Auto) 0.8 H (0.0-0.4) % Neut % (Auto) 77.9 H (45-73) % Lymph % (Auto) 15.8 L (20-40) % Abs Immat Gran (auto) 0.11 H (0.00-0.03) X10*3/uL Absolute Neuts (auto) 11.4 H (2.0-8.3) x10*3/uL PT (10.0-13.1) SEC INR (0.9-1.1) Carbon Dioxide 10 L* D 15 L (22-29) mmol/L Anion Gap 27 H 24 H (12-20) BUN 76 H 76 H (9-16) mg/dL Creatinine 11.45 H* 11.45 H* (0.5-1.4) mg/dL Random Glucose 140 H 160 H (60-115) mg/dL Calcium 8.3 L 8.0 L (8.4-10.2) mg/dL AST (5-31) U/L ALT (0-31) U/L Alkaline Phosphatase (39-117) U/L Short CBC 12/26/21 12/27/21 Range/Units 19:49 04:55 WBC 15.4 H 14.6 H (4.8-10.8) X10*3/uL Hgb 12.1 11.8 L (12.0-16.0) g/dl Hct 36.1 L 35.3 L (37.0-47.0) % Plt Count 250 231 (160-400) X10*3/uL BMP 12/26/21 12/26/21 12/27/21 19:49 22:00 04:55 Sodium 137 136 137 Potassium 4.5 4.8 4.5 Chloride 103 104 103 Carbon Dioxide 13 L 10 L* D 15 L BUN 76 H 76 H 76 H Creatinine 11.49 H* 11.45 H* 11.45 H* Calcium 8.6 8.3 L 8.0 L Liver Function 12/26/21 Range/Units 19:49 Total Bilirubin 0.7 (0.0-1.0) mg/dL Direct Bilirubin 0.3 (0.0-0.5) mg/dL AST 34 H (5-31) U/L ALT 51 H (0-31) U/L Alkaline Phosphatase 214 H (39-117) U/L Albumin 3.8 (3.5-5.0) g/dL Urine 12/26/21 Range/Units 13:51 Urine Color Cancelled Urine Appearance Cancelled Urine pH Cancelled Ur Specific [place] Cancelled Urine Protein Cancelled Urine Glucose (UA) Cancelled All other labs normal. Assessment and Plan (1) Acute renal failure: Status: Acute (2) Hydroureteronephrosis: Status: Acute Plan Plan for cystoscopy, bilateral retrograde and stent placement tomorrow Procedures Date of Service Date of Service: 12/27/21
--- NOTE | 2021-12-27 11:39 | HO.PM.IMPN ---
Subjective Subjective Date of Service: 12/27/21 Interval History: no acute issues overnight. Blood pressure remains difficult to control Review of Systems denies chest pain Denies shortness of breath Denies nausea vomiting diarrhea Denies fever chills Physical Exam Vital Signs: Vital Signs: Last Vital Signs Temp 99.4 F 12/27/21 11:26 Pulse 99 12/27/21 11:26 Resp 16 12/27/21 11:26 BP 178/91 H 12/27/21 11:26 Pulse Ox 97 12/27/21 11:26 O2 Del Method 12/27/21 11:26 BMI result Body Mass Index 49.4 Const: Other: no acute distress Resp: Other: clear to auscultation bilaterally no rales rhonchi or wheezes Cardio: Other: no S4; positive S1-S2; no S3 murmurs rubs or gallops GI: Other: soft nontender nondistended with normoactive bowel sounds Extrem: Other: no edema bilaterally Objective Data Active Medications Acetaminophen (Acetaminophen 325 Mg Tablet) 650 mg PO Q6H PRN PRN Reason: Pain, Mild (Pain Scale 1-3) Amlodipine Besylate (Amlodipine Besylate 10 Mg Tablet) 10 mg PO DAILY [facility]; Protocol Last Admin: 12/27/21 09:53 Dose: 10 mg Documented By: SHANTI Heparin Sodium (Porcine) (Heparin Sodium,Porcine 5,000 Unit/Ml Vial) 5,000 unit SUBCUT Q8H [facility] Last Admin: 12/27/21 08:30 Dose: 5,000 unit Documented By: YSABEL Hydralazine HCl (Hydralazine Hcl 10 Mg Tablet) 10 mg PO TID [facility]; Protocol Sodium Bicarbonate 150 meq/ (Dextrose) 1,000 mls @ 100 mls/hr IV .Q10H [facility] Last Admin: 12/27/21 09:53 Dose: 100 mls/hr Documented By: SHANTI Labetalol HCl (Labetalol Hcl 100 Mg/20 Ml Vial) 10 mg IVPUSH Q4H PRN PRN Reason: BP>160/90 Melatonin (Melatonin 3 Mg Tablet) 6 mg PO BEDTIME PRN PRN Reason: Insomnia Sodium Chloride (0.9 % Sodium Chloride Flush 3 Ml Syringe) 3 ml IVFLUSH QSHIFT [facility] Last Admin: 12/27/21 06:58 Dose: Not Given Documented By: YSABEL Non-Admin Reason: Med Not Available Labs CBC & Chem 7: 12/27/21 04:55 12/27/21 04:55 Labs: Laboratory Results - last 24 hr 12/26/21 12/26/21 12/26/21 13:51 19:49 19:49 MCV 81.1 MCH 27.2 MCHC 33.5 RDW 14.0 Plt Count 250 MPV 8.8 L Immature Gran % (Auto) 0.7 H Neut % (Auto) 78.6 H Lymph % (Auto) 15.5 L [place] % (Auto) 4.1 Eos % (Auto) 0.8 Baso % (Auto) 0.3 Lymph # (Auto) 2.4 [place] # (Auto) 0.6 Eos # (Auto) 0.1 Baso # (Auto) 0.0 Abs Immat Gran (auto) 0.11 H Absolute Neuts (auto) 12.1 H Absolute Nucleated RBC 0.000 Nucleated RBC % (auto) 0.0 PT INR Anion Gap 26 H Estim Creat Clear Calc 6.9 Estimated GFR 3 Random Glucose 130 H Lactic Acid Calcium 8.6 Magnesium 2.0 Total Bilirubin 0.7 Direct Bilirubin 0.3 AST 34 H ALT 51 H Alkaline Phosphatase 214 H Total Protein 6.7 Albumin 3.8 Lipase 46 Carcinoembryonic Ag Urine Color Cancelled Urine Appearance Cancelled Urine pH Cancelled Ur Specific [place] Cancelled Urine Protein Cancelled Urine Glucose (UA) Cancelled Urine Ketones Cancelled Urine Blood Cancelled Urine Nitrite Cancelled Ur Leukocyte Esterase Cancelled COVID-19 ([facility]) COVID-19 Clin Com 12/26/21 12/26/21 12/26/21 21:59 21:59 21:59 MCV MCH MCHC RDW Plt Count MPV Immature Gran % (Auto) Neut % (Auto) Lymph % (Auto) [place] % (Auto) Eos % (Auto) Baso % (Auto) Lymph # (Auto) [place] # (Auto) Eos # (Auto) Baso # (Auto) Abs Immat Gran (auto) Absolute Neuts (auto) Absolute Nucleated RBC Nucleated RBC % (auto) PT 13.7 H INR 1.2 H Anion Gap Estim Creat Clear Calc Estimated GFR Random Glucose Lactic Acid 0.7 Calcium Magnesium Total Bilirubin Direct Bilirubin AST ALT Alkaline Phosphatase Total Protein Albumin Lipase Carcinoembryonic Ag Urine Color Urine Appearance Urine pH Ur Specific [place] Urine Protein Urine Glucose (UA) Urine Ketones Urine Blood Urine Nitrite Ur Leukocyte Esterase COVID-19 ([facility]) Negative COVID-19 Clin Com See Note 12/26/21 12/27/21 12/27/21 22:00 04:55 04:55 MCV 81.1 MCH 27.1 MCHC 33.4 RDW 13.9 Plt Count 231 MPV 8.6 L Immature Gran % (Auto) 0.8 H Neut % (Auto) 77.9 H Lymph % (Auto) 15.8 L [place] % (Auto) 4.2 Eos % (Auto) 1.0 Baso % (Auto) 0.3 Lymph # (Auto) 2.3 [place] # (Auto) 0.6 Eos # (Auto) 0.2 Baso # (Auto) 0.0 Abs Immat Gran (auto) 0.11 H Absolute Neuts (auto) 11.4 H Absolute Nucleated RBC 0.000 Nucleated RBC % (auto) 0.0 PT INR Anion Gap 27 H 24 H Estim Creat Clear Calc 6.9 6.9 Estimated GFR 3 3 Random Glucose 140 H 160 H Lactic Acid Calcium 8.3 L 8.0 L Magnesium Total Bilirubin Direct Bilirubin AST ALT Alkaline Phosphatase Total Protein Albumin Lipase Carcinoembryonic Ag Urine Color Urine Appearance Urine pH Ur Specific [place] Urine Protein Urine Glucose (UA) Urine Ketones Urine Blood Urine Nitrite Ur Leukocyte Esterase COVID-19 ([facility]) COVID-19 Clin Com 12/27/21 04:55 MCV MCH MCHC RDW Plt Count MPV Immature Gran % (Auto) Neut % (Auto) Lymph % (Auto) [place] % (Auto) Eos % (Auto) Baso % (Auto) Lymph # (Auto) [place] # (Auto) Eos # (Auto) Baso # (Auto) Abs Immat Gran (auto) Absolute Neuts (auto) Absolute Nucleated RBC Nucleated RBC % (auto) PT INR Anion Gap Estim Creat Clear Calc Estimated GFR Random Glucose Lactic Acid Calcium Magnesium Total Bilirubin Direct Bilirubin AST ALT Alkaline Phosphatase Total Protein Albumin Lipase Carcinoembryonic Ag 2.10 Urine Color Urine Appearance Urine pH Ur Specific [place] Urine Protein Urine Glucose (UA) Urine Ketones Urine Blood Urine Nitrite Ur Leukocyte Esterase COVID-19 ([facility]) COVID-19 Clin Com Assessment and Plan (1) Hydroureteronephrosis: Status: Acute (2) Acute renal failure: Status: Acute (3) Hypertension: Status: Acute (4) Colonic mass: Status: Acute Plan 56-year-old with no significant past medical history presented to the hospital today with a chief complaint of difficulty urination.? CT abdomen showed moderate hydronephrosis/perinephric stranding/hydroureter/retroperitoneal lymphadenopathy/sigmoid colonic mass/bony metastasis.Poorly controlled HTN on arrival 1.Hydroureteonephrosis -seen by Urology...stent in am -hebert cath -empirical ABTX 2.FLOR -likely secondary to obstructive uropathy -follow renals/divalents after stenting -continue Bicarb drip 3.Colonic Mass -CT guided Bx after stenting. -Oncology consult 4.HTN - poorly controlled - increase amlodipine; add hydralazine - adjust as indicated Full Code heparin will require ongoing hospitalization for IV antibiotics and surgical intervention of hydro ureteral nephrosis Quality Stroke Does the patient have a stroke diagnosis?: No VTE Prior VTE?: No VTE Risk Level:: Medical - moderate - high VTE Device Contraindication: Treatment Not Indicated VTE Drug Contraindication: N/A - Med Ordered
[2021-12-27] MEDS: hydrALAZINE HCl 20 MG/ML VIAL 5 MG IVPUSH (11:48)
[2021-12-27] MEDS: Piperacillin Sodium/Tazobactam 2.25 GM in 0.9 % Sodium Chloride 50 ML IV ×2 (12:31→21:20)
[2021-12-27] MEDS: LORazepam 1 MG TABLET PO (13:58)
[2021-12-27] MEDS: 0.9 % Sodium Chloride Flush 3 ML SYRINGE IVFLUSH (16:14)
[2021-12-27] MEDS: hydrALAZINE HCl 10 MG TABLET PO ×2 (16:14→21:21)
--- NOTE | 2021-12-27 17:13 | PC.NURSE ---
Unable to insert hebert catheter. Pt is resistent to another try by different RN. Dr Huff notified and asked to attempt again. Per pt request prior to hebert, Ativan ordered and given. @nd RN attempted to insert hebert. No drainage from bag and pt bladder scanned for 40ml. Dr Huff in to see pt. Will leave hebert out at this time. Pt has been voiding in small amounts in bathroom today.
[2021-12-27] MEDS: Labetalol HCL 100 MG/20 ML VIAL 10 MG IVPUSH (17:49)
--- NOTE | 2021-12-27 18:49 | P.CONNP_ITS ---
History of Present Illness Reason for Consult Consult date: 12/27/21 Chief Complaint Chief complaint: FLOR History of Present Illness Narrative: 56-year-old with no significant past medical history presented to the hospital today with a chief complaint of difficulty urination.?Over the past 2 months she has been having urinary complaints, has been having urinary frequency urgency initially, has seen urgent care at least couple times and has received antibiotics as outpatient.? Denies any fevers and chills.? Denies any abdominal pain.? Denies any chest pain or palpitations.? Denies any prior history of hypertension.? Denies taking any home medications.?Denies any smoking or illicit drug use.?Denies any headaches blurry visions, numbness tingling or focal weakness.?In the ER patient's urinalysis was negative, exam was benign, on labs noted to have elevated creatinine of 11.49, low bicarb; patient was started on bicarb drip.?CT scan showed pelvic mass-sigmoid colon mass/retroperitoneal lymphadenopathy/moderate hydronephrosis and perinephric stranding as well as hydroureter leading to the bladder without tear mechanical obstructive etiology possible osseous metastasis.? Admitted for further management. Nephrology has been consulted to assist in her clinical care during her current hospital stay Review of Systems Review of Systems Yes all other systems are reviewed and are negative PMFSH Social History Social History Household Members: Other Household Members Other:: roommate Housing: House Do you presently have visiting nurse or other home services: No Patient Tobacco Use Status: Never used Tobacco Use of substances other than those prescribed or required for medical reasons: No Have you been hit, kicked, punched, or otherwise hurt by someone within the past year? If so, by whom?: No Do you feel safe in your current relationship?: No Current Relationship Is there a partner from a previous relationship who is making you feel unsafe now?: No Are you made to feel afraid or neglected: No Advance Directives: No Advance Directives Information Provided: No Do you have thoughts of harming others: None Do you have a plan to hurt others: No Plan Recently lost weight without trying: Yes How much weight loss: 2-13 pounds Eating poorly because of decreased appetite: Yes Nutrition screen score: 4 Nutrition Risks: No Nutritional Risk Patient : No : No Poor oral hygiene: No service: No Current occupational status: employed Meds Allergies Allergy/AdvReac Type Severity Reaction Status Date / Time neomycin Allergy Intermediate Rash Verified 12/16/21 12:30 parafin wax Allergy Intermediate Rash Uncoded 12/26/21 13:49 Active Medications: Current Medications Acetaminophen (Acetaminophen 325 Mg Tablet) 650 mg PO Q6H PRN PRN Reason: Pain, Mild (Pain Scale 1-3) Amlodipine Besylate (Amlodipine Besylate 10 Mg Tablet) 10 mg PO DAILY [facility]; Protocol Last Admin: 12/27/21 09:53 Dose: 10 mg Heparin Sodium (Porcine) (Heparin Sodium,Porcine 5,000 Unit/Ml Vial) 5,000 unit SUBCUT Q8H [facility] Last Admin: 12/27/21 16:14 Dose: 5,000 unit Hydralazine HCl (Hydralazine Hcl 10 Mg Tablet) 10 mg PO TID [facility]; Protocol Last Admin: 12/27/21 16:14 Dose: 10 mg Sodium Bicarbonate 150 meq/ (Dextrose) 1,000 mls @ 100 mls/hr IV .Q10H [facility] Last Admin: 12/27/21 09:53 Dose: 100 mls/hr Piperacillin Sod/Tazobactam (Sod 2.25 gm/ Sodium Chloride) 50 mls @ 100 mls/hr IV Q8H [facility] Last Infusion: 12/27/21 13:05 Dose: Infused Labetalol HCl (Labetalol Hcl 100 Mg/20 Ml Vial) 10 mg IVPUSH Q4H PRN PRN Reason: BP>160/90 Last Admin: 12/27/21 17:49 Dose: 10 mg Melatonin (Melatonin 3 Mg Tablet) 6 mg PO BEDTIME PRN PRN Reason: Insomnia Oxycodone HCl (Oxycodone Hcl Immed Release 5 Mg Tablet) 5 mg PO Q4H PRN PRN Reason: Pain, Moderate (Pain Scale 4-6 Sodium Chloride (0.9 % Sodium Chloride Flush 3 Ml Syringe) 3 ml IVFLUSH QSHIFT [facility] Last Admin: 12/27/21 16:14 Dose: 3 ml Home Medications Medication Instructions Recorded Confirmed Last Taken Type No Known Home Meds 12/16/21 12/27/21 Unknown History Physical Exam Vital Signs: Last Vital Signs Temp 98.3 F 12/27/21 15:19 Pulse 91 12/27/21 18:15 Resp 18 12/27/21 15:19 BP 167/84 H 12/27/21 18:15 Pulse Ox 96 12/27/21 15:19 O2 Del Method 12/27/21 15:19 BMI result Body Mass Index 49.4 Const General: no acute distress Orientation/consciousness: patient oriented x3 Eyes EOM: EOMs intact bilaterally Neck Neck: Yes supple Resp Auscultation: diminished lung sounds Cardio Rate: regular rate GI Palpation (GI): Soft to palpation Neuro General: patient oriented x3 and moves all extremities Results Lab Results Result Diagrams: 12/27/21 04:55 12/27/21 04:55 Lab results: Chemistry 12/26/21 12/26/21 12/27/21 19:49 22:00 04:55 Sodium 137 136 137 Potassium 4.5 4.8 4.5 Carbon Dioxide 13 L 10 L* D 15 L BUN 76 H 76 H 76 H Creatinine 11.49 H* 11.45 H* 11.45 H* Calcium 8.6 8.3 L 8.0 L Hematology 12/26/21 12/27/21 19:49 04:55 WBC 15.4 H 14.6 H Hgb 12.1 11.8 L Plt Count 250 231 Urinalysis 12/26/21 13:51 Urine Color Cancelled Urine Appearance Cancelled Urine pH Cancelled Ur Specific [place] Cancelled Urine Protein Cancelled Urine Glucose (UA) Cancelled Urine Ketones Cancelled Urine Blood Cancelled Urine Nitrite Cancelled Ur Leukocyte Esterase Cancelled Assessment and Plan (1) Acute renal failure: Status: Acute Plan FLOR due to obstructive uropathy Metabolically acidotic and hypertensive Urology seen. Going for stenting Getting IV bicarb & anti hypertensives No indication for renal replacement today Discussed all these in detail All questions answered. Labs AM Procedures Date of Service Date of Service: 12/27/21
[2021-12-28] VITALS (16 sets, daily range): BP systolic 154–198; BP diastolic 70–107; PULSE 94–117; RESP 16–22; TEMP 36.1–37.1; O2SAT 94–97
[2021-12-28] MEDS: 0.9 % Sodium Chloride Flush 3 ML SYRINGE IVFLUSH ×2 (00:08→09:01)
[2021-12-28] MEDS: Heparin Sodium,Porcine 5,000 UNIT/ML VIAL 5000 UNIT SUBCUT (00:08)
[2021-12-28] MEDS: Piperacillin Sodium/Tazobactam 2.25 GM in 0.9 % Sodium Chloride 50 ML IV ×3 (04:16→19:52)
--- NOTE | 2021-12-28 05:20 | PM.HEMONCCN ---
Subjective - Subjective Chief complaint: sigmoid mass Patient: new to practice Consult date: 12/27/21 Primary Care Provider: None Physician HPI - Consult Narrative Reason for consult: sigmoid mass Narrative: Beatriz Hendricks is a 56 year old female admitted December 272021 with acute renal failure, hydronephrosis, possible sigmoid mass, retroperitoneal adenopathy, acidosis and BMI of 49. Review of Systems - Constitutional Reports chills - ENT Reports system reviewed and no additional complaints, except as documented - Cardiovascular Reports fast heart rate - Respiratory Reports dyspnea on exertion - Gastrointestinal Reports nausea - Genitourinary Reports difficulty starting urination, Reports dribbling after urination - Musculoskeletal Reports other PMFSH Social History: Social History (Last Reviewed 12/26/21 @ 17:21 by AMPARO Guerrier) Living Situation History: Household Members: Other Household Members Other:: roommate Housing: House Do you presently have visiting nurse or other home services: No Alcohol History Details: 1. How often do you have a drink containing alcohol?: b. Monthly or less 2. How many drinks containing alcohol do you have on a typical day when you are drinking?: a. 1 or 2 3. How often do you have six or more drinks on one occasion?: a. Never AUDIT-C Alcohol total score: 1 Last Drank Other:: weeks ago Currently Displaying Signs/Symptoms of Alcohol Withdrawal: No Tobacco History: Patient Tobacco Use Status: Never used Tobacco Substance Use History: Use of substances other than those prescribed or required for medical reasons: No Currently Displaying Signs/Symptoms of Drug Intoxication Withdrawal: No Domestic Abuse History: Have you been hit, kicked, punched, or otherwise hurt by someone within the past year? If so, by whom?: No Do you feel safe in your current relationship?: No Current Relationship Is there a partner from a previous relationship who is making you feel unsafe now?: No Are you made to feel afraid or neglected: No Advance Directives: Advance Directives: No Advance Directives Information Provided: No Homicidal Assessment: Do you have thoughts of harming others: None Do you have a plan to hurt others: No Plan Nutrition Assessment: Recently lost weight without trying: Yes How much weight loss: 2-13 pounds Eating poorly because of decreased appetite: Yes Nutrition screen score: 4 Nutrition Risks: No Nutritional Risk Patient : No : No Poor oral hygiene: No Occupation Assessmet: service: No Current occupational status: employed Home Medications and Allergies Current Medications: Current Medications Acetaminophen (Acetaminophen 325 Mg Tablet) 650 mg PO Q6H PRN PRN Reason: Pain, Mild (Pain Scale 1-3) Amlodipine Besylate (Amlodipine Besylate 10 Mg Tablet) 10 mg PO DAILY [facility]; Protocol Last Admin: 12/27/21 09:53 Dose: 10 mg Heparin Sodium (Porcine) (Heparin Sodium,Porcine 5,000 Unit/Ml Vial) 5,000 unit SUBCUT Q8H [facility] Last Admin: 12/28/21 00:08 Dose: 5,000 unit Hydralazine HCl (Hydralazine Hcl 10 Mg Tablet) 10 mg PO TID [facility]; Protocol Last Admin: 12/27/21 21:21 Dose: 10 mg Sodium Bicarbonate 150 meq/ (Dextrose) 1,000 mls @ 100 mls/hr IV .Q10H [facility] Last Admin: 12/27/21 23:01 Dose: 100 mls/hr Piperacillin Sod/Tazobactam (Sod 2.25 gm/ Sodium Chloride) 50 mls @ 100 mls/hr IV Q8H [facility] Last Infusion: 12/28/21 04:46 Dose: Infused Labetalol HCl (Labetalol Hcl 100 Mg/20 Ml Vial) 10 mg IVPUSH Q4H PRN PRN Reason: BP>160/90 Last Admin: 12/27/21 17:49 Dose: 10 mg Melatonin (Melatonin 3 Mg Tablet) 6 mg PO BEDTIME PRN PRN Reason: Insomnia Oxycodone HCl (Oxycodone Hcl Immed Release 5 Mg Tablet) 5 mg PO Q4H PRN PRN Reason: Pain, Moderate (Pain Scale 4-6 Sodium Chloride (0.9 % Sodium Chloride Flush 3 Ml Syringe) 3 ml IVFLUSH QSHIFT [facility] Last Admin: 12/28/21 00:08 Dose: 3 ml Home Medications Medication Instructions Recorded Confirmed Type No Known Home Meds 12/16/21 12/27/21 History Allergies Allergy/AdvReac Type Severity Reaction Status Date / Time neomycin Allergy Intermediate Rash Verified 12/16/21 12:30 parafin wax Allergy Intermediate Rash Uncoded 12/26/21 13:49 Physical Exam Vital signs: Vital Signs Temp 97.3 F 12/28/21 04:00 Pulse 98 12/28/21 04:00 Resp 18 09/06/22 04:00 BP 193/91 H 12/28/21 04:00 Pulse Ox 94 12/28/21 04:00 O2 Del Method 12/28/21 04:00 Intake & Output 12/27/21 12/27/21 12/28/21 06:59 18:59 06:59 Intake Total 1999 1050 / 2550 1500 / 2550 Output Total 1250 / 1250 Balance 1999 1050 / 1300 250 / 1300 Urine Output (Average ml/kg/hr) 0.82 Intake: Intake, Oral Amount 400 / 400 Intake, IV Amount 1999 1050 / 2150 1100 / 2150 0.9 % Sodium Chloride 1,000 ml 1999 / 1999 @ 999 mls/hr IV .Q1H1M [facility] Rx#: [id number] Piperacillin Sodium/Tazobactam 50 / 150 100 / 150 2.25 gm In 0.9 % Sodium Chloride 50 ml @ 100 mls/hr IV Q8H [facility] Rx#:[id number] Sodium Bicarbonate 8.4% 150 meq 999 / 1999 1000 / 2000 In Dextrose 5 % 850 ml @ 100 mls/hr IV .Q10H [facility] Rx#: [id number] Output: Output, Urine Amount 1250 / 1250 Other: Meal Refused No NPO No Lunch % Eaten 100% Dinner % Eaten 100% Number of Unmeasured Voids 1 Urine Bathroom Urine Color Yellow Last Bowel Movement 12/27/21 Weight 126.552 kg - Constitutional Present: no acute distress - Routine HEENT Exam Head: Present: atraumatic - Routine Neck Exam Present: supple - Routine Respiratory Exam Present: decreased breath sounds - Routine Cardiovascular Exam Cardiovascular: Present: RRR - Routine Abdominal Exam Present: diminished bowel sounds - Routine Skin Exam Present: intact - Routine Neurological Exam Present: alert, oriented X3 Hem/Onc Consult Result - Labs CBC & Chem 7: 12/27/21 04:55 12/27/21 04:55 Labs: BMP 12/27/21 04:55 Sodium 137 Potassium 4.5 Chloride 103 Carbon Dioxide 15 L BUN 76 H Creatinine 11.45 H* Calcium 8.0 L Assessment and Plan Patient Active problem list reviewed?: Yes (1) Colonic mass Status: Acute Assessment and plan: Once she is metabolically stable recommend we obtain tissue with FNA or colonoscopy. - Time Spent With Patient Time Spent with Patient (in minutes): 20
[2021-12-28 06:06] LABS: MANUAL DIFF FLAG NO
[2021-12-28 06:14] LABS: INTERNATIONAL NORM RATIO 1.1 (0.9-1.1); Prothrombin Time 12.8 SEC (10.0-13.1)
[2021-12-28 06:28] LABS: Basophils Percent Auto 0.2 % (0-2); Eosinophils Absolute Auto 0.2 X10*3/uL (0.0-0.4); Eosinophils Percent Auto 1.5 % (0-4); Hematocrit 33.3 % (37.0-47.0); Hemoglobin 11.1 g/dl (12.0-16.0); Imm Gran Pct Auto 0.7 % (0.0-0.4); Lymphocytes Absolute Auto 1.9 X10*3/uL (1.2-4.9); Lymphocytes Percent Auto 12.9 % (20-40); Mean Corpuscular HGB Conc 33.3 g/dl (31.0-35.0); Mean Corpuscular Hemoglobin 26.8 pg (27.0-33.0); Mean Corpuscular Volume 80.4 fL (80.0-98.0); Mean Platelet Volume 9.2 fL (9.4-12.3); Monocytes Absolute Auto 0.7 X10*3/uL (0.1-1.2); Monocytes Percent Auto 4.7 % (2-11); Neutrophils Absolute Auto 11.9 x10*3/uL (2.0-8.3); Platelet Count 266 X10*3/uL (160-400); Red Blood Count 4.14 X10*6/uL (4.20-5.50); Red Cell Distribution Width 14.2 % (11.0-16.0); White Blood Count 14.8 X10*3/uL (4.8-10.8)
[2021-12-28 06:46] LABS: Alanine Aminotransferase 51 U/L (0-31); Albumin Level 3.6 g/dL (3.5-5.0); Alkaline Phosphatase 197 U/L (39-117); Anion Gap 23 (12-20); Aspartate Amino Transferase 32 U/L (5-31); Bilirubin Total 0.8 mg/dL (0.0-1.0); Blood Urea Nitrogen 73 mg/dL (9-16); Calcium 8.3 mg/dL (8.4-10.2); Carbon Dioxide 19 mmol/L (22-29); Chloride 101 mmol/L (96-108); Estimated Glomerular Filt Rate 4; Glucose Fasting 182 mg/dL (60-99); Potassium 4.3 mmol/L (3.3-5.1); Sodium 139 mmol/L (135-145); Total Protein 6.2 g/dL (6.5-8.0)
--- NOTE | 2021-12-28 08:35 | P.CDIC_ITS ---
CDI Concurrent Query Documentation Clarification: PHYSICIAN'S DOCUMENTATION REQUEST Date of Query: 12/28/21 0835 Patient Name: Beatriz Hendricks Admit Date: 12/26/21 Dear Doctor, A review of the medical record indicates additional documentation may be needed. Please review below and update the documentation accordingly. Risk Factors/Clinical Indicators/Treatments BMI 49.4 5' 3 in height If possible, please provide an associated diagnosis related to the abnormal BMI, such as: For a BMI >= 40: * Overweight * Obesity * Due to excess calories * Drug induced * Due to other cause * Severe or Morbid Obesity * With alveolar hypoventilation * Without alveolar hypoventilation Use of terms such as suspected, likely, concern for, or probable (associated with a specific diagnosis that is being evaluated, monitored, or treated as if it exists) are acceptable and can be coded in the inpatient setting, when documented at the time of discharge. Thank you, Chary Brown [facility], CDIS Extension: [phone] Please use your independent medical judgment in providing your response. THIS QUERY IS PART OF THE PERMANENT MEDICAL RECORD Provider Response: Other Other Diagnosis: obesity due to excess calories
[2021-12-28] MEDS: hydrALAZINE HCl 10 MG TABLET PO ×3 (09:01→19:51)
[2021-12-28] MEDS: amLODIPine Besylate 10 MG TABLET PO (09:01)
[2021-12-28] MEDS: Sodium Bicarbonate 8.4% 150 MEQ in Dextrose 5 % 850 ML 100 MEQ IV (09:45)
--- NOTE | 2021-12-28 10:26 | PM.PNNEP ---
Subjective Subjective Date of Service: 12/28/21 Interval history: Renal functions improved; Getting stents today Physical Exam Vital Signs: Vital Signs: Last Vital Signs Temp 96.9 F 12/28/21 07:28 Pulse 94 12/28/21 07:28 Resp 18 12/28/21 07:28 BP 176/82 H 12/28/21 07:28 Pulse Ox 95 12/28/21 07:28 O2 Del Method 12/28/21 07:28 BMI result Body Mass Index 49.4 Const: General: no acute distress Orientation/consciousness: patient oriented x3 Eyes: EOM: EOMs intact bilaterally Neck: Neck: Yes supple Resp: Auscultation: diminished lung sounds Cardio: Rate: regular rate GI: Palpation (GI): Soft to palpation Neuro: General: patient oriented x3 Objective Data Labs CBC & Chem 7: 12/28/21 05:25 12/28/21 05:25 Labs: Laboratory Results - last 24 hr 12/28/21 12/28/21 12/28/21 05:25 05:25 05:25 WBC 14.8 H RBC 4.14 L Hgb 11.1 L Hct 33.3 L MCV 80.4 MCH 26.8 L MCHC 33.3 RDW 14.2 Plt Count 266 MPV 9.2 L Immature Gran % (Auto) 0.7 H Neut % (Auto) 80.0 H Lymph % (Auto) 12.9 L [place] % (Auto) 4.7 Eos % (Auto) 1.5 Baso % (Auto) 0.2 Lymph # (Auto) 1.9 [place] # (Auto) 0.7 Eos # (Auto) 0.2 Baso # (Auto) 0.0 Abs Immat Gran (auto) 0.10 H Absolute Neuts (auto) 11.9 H Absolute Nucleated RBC 0.000 Nucleated RBC % (auto) 0.0 PT 12.8 INR 1.1 Sodium 139 Potassium 4.3 Chloride 101 Carbon Dioxide 19 L Anion Gap 23 H BUN 73 H Creatinine 9.94 H* Estim Creat Clear Calc 8.0 Estimated GFR 4 Fasting Glucose 182 H Calcium 8.3 L Total Bilirubin 0.8 AST 32 H ALT 51 H Alkaline Phosphatase 197 H Total Protein 6.2 L Albumin 3.6 Microbiology Microbiology Results: Microbiology 12/26/21 21:59 Blood - Venous Blood Culture - Preliminary No growth after 24 hours. 12/26/21 21:59 Blood - Venous Blood Culture - Preliminary No growth after 24 hours. Procedures Date of Service Date of Service: 12/28/21 Assessment & Plan Assessment and plan (1) Acute renal failure: Status: Acute Assessment and Plan: FLOR due to obstructive uropathy Metabolically acidotic(improving) and hypertensive Urology seen. Going for stenting today No indication for renal replacement Continue rest of current management Labs AM; Shall F/U closely Time Spent With Patient Time: Total time spent is greater than 50% in coordination of care (as documented) at patient's floor/unit and/or counseling patient: Progress Note: Quality Stroke Does the patient have a stroke diagnosis?: No
--- NOTE | 2021-12-28 11:25 | MHC.CLN ---
NUTRITION CONSULT FOR DECREASED APPETITE. CURRENTLY NPO FOR RENAL STENT PLACEMENT TODAY. NEW COLONIC MASS. WILL FOLLOW UP WITH INTAKE/APPETITE WHEN DIET RESUMES.
[2021-12-28 13:51] LABS: Alpha Fetoprotein 4.7 ng/mL
--- NOTE | 2021-12-28 16:00 | HO.PM.IMPN ---
Subjective Subjective Date of Service: 12/28/21 Interval History: no acute events overnight. Awaiting stent placement later today Review of Systems denies chest pain Denies shortness of breath Denies nausea vomiting diarrhea Denies fever chills Physical Exam Vital Signs: Vital Signs: Last Vital Signs Temp 97.1 F 12/28/21 15:35 Pulse 107 H 12/28/21 15:35 Resp 16 12/28/21 15:35 BP 174/70 H 12/28/21 15:35 Pulse Ox 96 12/28/21 15:35 O2 Del Method 12/28/21 15:35 BMI result Body Mass Index 49.4 Const: Other: no acute distress Resp: Other: clear to auscultation bilaterally no rales rhonchi or wheezes Cardio: Other: no S4; positive S1-S2; no S3 murmurs rubs or gallops GI: Other: soft nontender nondistended with normoactive bowel sounds Extrem: Other: no edema bilaterally Objective Data Active Medications Acetaminophen (Acetaminophen 325 Mg Tablet) 650 mg PO Q6H PRN PRN Reason: Pain, Mild (Pain Scale 1-3) Amlodipine Besylate (Amlodipine Besylate 10 Mg Tablet) 10 mg PO DAILY [facility]; Protocol Last Admin: 12/28/21 09:01 Dose: 10 mg Documented By: SHANTI Heparin Sodium (Porcine) (Heparin Sodium,Porcine 5,000 Unit/Ml Vial) 5,000 unit SUBCUT Q8H [facility] Last Admin: 12/28/21 15:34 Dose: Not Given Documented By: SHANTI Non-Admin Reason: preop Hydralazine HCl (Hydralazine Hcl 10 Mg Tablet) 10 mg PO TID [facility]; Protocol Last Admin: 12/28/21 13:58 Dose: 10 mg Documented By: SHANTI Sodium Bicarbonate 150 meq/ (Dextrose) 1,000 mls @ 100 mls/hr IV .Q10H [facility] Last Admin: 12/28/21 09:45 Dose: 100 mls/hr Documented By: SHANTI Piperacillin Sod/Tazobactam (Sod 2.25 gm/ Sodium Chloride) 50 mls @ 100 mls/hr IV Q8H [facility] Last Infusion: 12/28/21 12:19 Dose: 0 mls/hr Documented By: SHANTI Labetalol HCl (Labetalol Hcl 100 Mg/20 Ml Vial) 10 mg IVPUSH Q4H PRN PRN Reason: BP>160/90 Last Admin: 12/27/21 17:49 Dose: 10 mg Documented By: SHANTI Lorazepam (Lorazepam 1 Mg Tablet) 1 mg PO Q6H PRN PRN Reason: Anxiety Melatonin (Melatonin 3 Mg Tablet) 6 mg PO BEDTIME PRN PRN Reason: Insomnia Oxycodone HCl (Oxycodone Hcl Immed Release 5 Mg Tablet) 5 mg PO Q4H PRN PRN Reason: Pain, Moderate (Pain Scale 4-6 Sodium Chloride (0.9 % Sodium Chloride Flush 3 Ml Syringe) 3 ml IVFLUSH QSHIFT [facility] Last Admin: 12/28/21 09:01 Dose: 3 ml Documented By: SHANTI Labs CBC & Chem 7: 12/28/21 05:25 12/28/21 05:25 Labs: Laboratory Results - last 24 hr 12/27/21 12/28/21 12/28/21 04:55 05:25 05:25 MCV 80.4 MCH 26.8 L MCHC 33.3 RDW 14.2 Plt Count 266 MPV 9.2 L Immature Gran % (Auto) 0.7 H Neut % (Auto) 80.0 H Lymph % (Auto) 12.9 L [place] % (Auto) 4.7 Eos % (Auto) 1.5 Baso % (Auto) 0.2 Lymph # (Auto) 1.9 [place] # (Auto) 0.7 Eos # (Auto) 0.2 Baso # (Auto) 0.0 Abs Immat Gran (auto) 0.10 H Absolute Neuts (auto) 11.9 H Absolute Nucleated RBC 0.000 Nucleated RBC % (auto) 0.0 PT 12.8 INR 1.1 Anion Gap Estim Creat Clear Calc Estimated GFR Fasting Glucose Calcium Total Bilirubin AST ALT Alkaline Phosphatase Total Protein Albumin Alpha Fetoprotein 4.7 12/28/21 05:25 MCV MCH MCHC RDW Plt Count MPV Immature Gran % (Auto) Neut % (Auto) Lymph % (Auto) [place] % (Auto) Eos % (Auto) Baso % (Auto) Lymph # (Auto) [place] # (Auto) Eos # (Auto) Baso # (Auto) Abs Immat Gran (auto) Absolute Neuts (auto) Absolute Nucleated RBC Nucleated RBC % (auto) PT INR Anion Gap 23 H Estim Creat Clear Calc 8.0 Estimated GFR 4 Fasting Glucose 182 H Calcium 8.3 L Total Bilirubin 0.8 AST 32 H ALT 51 H Alkaline Phosphatase 197 H Total Protein 6.2 L Albumin 3.6 Alpha Fetoprotein Microbiology Microbiology Results: Microbiology 12/26/21 21:59 Blood Culture - Preliminary Blood - Venous No growth after 24 hours. 12/26/21 21:59 Blood Culture - Preliminary Blood - Venous No growth after 24 hours. Assessment and Plan (1) Hydroureteronephrosis: Status: Acute (2) Acute renal failure: Status: Acute (3) Colonic mass: Status: Acute (4) Hypertension: Status: Acute Plan 56-year-old with no significant past medical history presented to the hospital today with a chief complaint of difficulty urination.? CT abdomen showed moderate hydronephrosis/perinephric stranding/hydroureter/retroperitoneal lymphadenopathy/sigmoid colonic mass/bony metastasis.Poorly controlled HTN on arrival 1.Hydroureteonephrosis -seen by Urology... to OR later today -empirical ABTX 2.FLOR -likely secondary to obstructive uropathy... improving with fluids -follow renals/divalents after stenting -continue Bicarb drip 3.Colonic Mass -CT guided Bx after stenting. -Oncology consult 4.HTN - poorly controlled - increase amlodipine; add hydralazine - adjust as indicated Full Code heparin will require ongoing hospitalization for IV antibiotics and surgical intervention of hydro ureteral nephrosis Quality Stroke Does the patient have a stroke diagnosis?: No VTE Prior VTE?: No VTE Risk Level:: Medical - moderate - high VTE Device Contraindication: Treatment Not Indicated VTE Drug Contraindication: N/A - Med Ordered
--- NOTE | 2021-12-28 16:34 | MHC.SHP ---
Pre-Procedural Eval Section A Date of Service: 12/28/21 The patient is an INPATIENT: Yes Changes since office visit: No Cold of Flu in the past 2 weeks, No New Medical Problems, No Changes in Medication and No Patient answered all questions The History & Physical has been completed within 30 days and I have reviewed it.: Yes Section B Chief Complaint: FLOR Allergies: Allergies Allergy/AdvReac Type Severity Reaction Status Date / Time neomycin Allergy Intermediate Rash Verified 12/16/21 12:30 parafin wax Allergy Intermediate Rash Uncoded 12/26/21 13:49 Plan Diagnosis/Plan: Unchanged (bilateral retrogrades, stent placement) I have reviewed the history and physical and performed a pertinent physical examination on my patient. No changes have occurred unless specified.
--- NOTE | 2021-12-28 16:43 | P.CONAN_ITS ---
HPI - Anesthesia Eval Consult details Narrative: 56 yo female patient for cysto, bilateral retro and stent placement PMFSH Active Problems Active Problems: All Active Problems (Updated 12/28/21 @ 05:25 by Kai Hall MD) Colonic mass (Acute) Hypertension (Acute)- just diagnosed at this admission Hydroureteronephrosis (Acute) Acute renal failure (Acute). On bicarb infusion Hypertensive emergency (Acute) Urgency-frequency syndrome (Acute) Snores but denies ANUSHKA Increased BMI 49.4 Family History Family history of problems with anesthesia: No Surgical History Surgical History (Updated 12/28/21 @ 17:31 by mIan León MD) History of tonsillectomy [place] teeth extracted History of Problems with Anesthesia: Yes (States woke up during tonsillectomy as a child. Wakes up very fast from anesthesia ) Social History Social History (Updated 12/28/21 @ 16:58 by Iman León MD) Household Members: Other Household Members Other:: roommate Housing: House Do you presently have visiting nurse or other home services: No Patient Tobacco Use Status: Never used Tobacco Use of substances other than those prescribed or required for medical reasons: No Currently Displaying Signs/Symptoms of Drug Intoxication Withdrawal: No Have you been hit, kicked, punched, or otherwise hurt by someone within the past year? If so, by whom?: No Do you feel safe in your current relationship?: No Current Relationship Is there a partner from a previous relationship who is making you feel unsafe now?: No Are you made to feel afraid or neglected: No Advance Directives: No Advance Directives Information Provided: No Do you have thoughts of harming others: None Do you have a plan to hurt others: No Plan Recently lost weight without trying: Yes How much weight loss: 2-13 pounds Eating poorly because of decreased appetite: Yes Nutrition screen score: 4 Nutrition Risks: No Nutritional Risk Patient : No : No Poor oral hygiene: No service: No Current occupational status: employed Meds Allergies Allergy/AdvReac Type Severity Reaction Status Date / Time neomycin Allergy Intermediate Rash Verified 12/16/21 12:30 parafin wax Allergy Intermediate Rash Uncoded 12/26/21 13:49 Active Medications: Current Medications Acetaminophen (Acetaminophen 325 Mg Tablet) 650 mg PO Q6H PRN PRN Reason: Pain, Mild (Pain Scale 1-3) Amlodipine Besylate (Amlodipine Besylate 10 Mg Tablet) 10 mg PO DAILY [facility]; Protocol Last Admin: 12/28/21 09:01 Dose: 10 mg Heparin Sodium (Porcine) (Heparin Sodium,Porcine 5,000 Unit/Ml Vial) 5,000 unit SUBCUT Q8H [facility] Last Admin: 12/28/21 15:34 Dose: Not Given Hydralazine HCl (Hydralazine Hcl 10 Mg Tablet) 10 mg PO TID [facility]; Protocol Last Admin: 12/28/21 13:58 Dose: 10 mg Sodium Bicarbonate 150 meq/ (Dextrose) 1,000 mls @ 100 mls/hr IV .Q10H [facility] Last Admin: 12/28/21 09:45 Dose: 100 mls/hr Piperacillin Sod/Tazobactam (Sod 2.25 gm/ Sodium Chloride) 50 mls @ 100 mls/hr IV Q8H [facility] Last Infusion: 12/28/21 12:19 Dose: Infused Labetalol HCl (Labetalol Hcl 100 Mg/20 Ml Vial) 10 mg IVPUSH Q4H PRN PRN Reason: BP>160/90 Last Admin: 12/27/21 17:49 Dose: 10 mg Lorazepam (Lorazepam 1 Mg Tablet) 1 mg PO Q6H PRN PRN Reason: Anxiety Melatonin (Melatonin 3 Mg Tablet) 6 mg PO BEDTIME PRN PRN Reason: Insomnia Oxycodone HCl (Oxycodone Hcl Immed Release 5 Mg Tablet) 5 mg PO Q4H PRN PRN Reason: Pain, Moderate (Pain Scale 4-6 Sodium Chloride (0.9 % Sodium Chloride Flush 3 Ml Syringe) 3 ml IVFLUSH QSHIFT [facility] Last Admin: 12/28/21 09:01 Dose: 3 ml Home Medications Medication Instructions Recorded Confirmed Last Taken Type No Known Home Meds 12/16/21 12/27/21 Unknown History Exam Exam Date and Time: December 28, 2021 1643 Height,Weight and Vital Signs: Height 5 ft 3 in Weight 126.552 kg Last Vital Signs Temp 97.1 F 12/28/21 15:35 Pulse 107 H 12/28/21 15:35 Resp 16 12/28/21 15:35 BP 174/70 H 12/28/21 15:35 Pulse Ox 96 12/28/21 15:35 O2 Del Method 12/28/21 15:35 Vital Signs Temp Pulse Resp BP Pulse Ox O2 Del Method 12/28/21 17:02 98.3 F 113 H 20 187/91 H 97 Room Air 12/28/21 13:00 102 H 160/87 H 12/28/21 15:35 97.1 F 107 H 16 174/70 H 96 Room Air 12/28/21 15:24 Room Air 12/28/21 12:00 98.1 F 101 H 18 180/74 H 95 Room Air 12/28/21 07:28 96.9 F 94 18 176/82 H 95 Room Air 12/28/21 06:24 176/84 H 12/28/21 04:00 97.3 F 98 18 193/91 H 94 Room Air 12/28/21 04:00 97.3 F 97 17 193/91 H 95 Room Air 12/27/21 23:42 98.0 F 94 17 177/80 H 94 Room Air 12/27/21 19:30 98.8 F 86 17 184/97 H 96 Room Air 12/27/21 18:15 91 167/84 H 12/27/21 17:20 106 H 187/81 H Pertinent Lab Results Pertinent Lab Results: Laboratory Tests 12/26/21 12/26/21 12/26/21 13:51 19:49 19:49 WBC 15.4 H RBC 4.45 Hgb 12.1 Hct 36.1 L MCV 81.1 MCH 27.2 MCHC 33.5 RDW 14.0 Plt Count 250 MPV 8.8 L Immature Gran % (Auto) 0.7 H Neut % (Auto) 78.6 H Lymph % (Auto) 15.5 L [place] % (Auto) 4.1 Eos % (Auto) 0.8 Baso % (Auto) 0.3 Lymph # (Auto) 2.4 [place] # (Auto) 0.6 Eos # (Auto) 0.1 Baso # (Auto) 0.0 Abs Immat Gran (auto) 0.11 H Absolute Neuts (auto) 12.1 H Absolute Nucleated RBC 0.000 Nucleated RBC % (auto) 0.0 PT INR Sodium 137 Potassium 4.5 Chloride 103 Carbon Dioxide 13 L Anion Gap 26 H BUN 76 H Creatinine 11.49 H* Estim Creat Clear Calc 6.9 Estimated GFR 3 Random Glucose 130 H Fasting Glucose Lactic Acid Calcium 8.6 Magnesium 2.0 Total Bilirubin 0.7 Direct Bilirubin 0.3 AST 34 H ALT 51 H Alkaline Phosphatase 214 H Total Protein 6.7 Albumin 3.8 Lipase 46 Alpha Fetoprotein Carcinoembryonic Ag Urine Color Cancelled Urine Appearance Cancelled Urine pH Cancelled Ur Specific [place] Cancelled Urine Protein Cancelled Urine Glucose (UA) Cancelled Urine Ketones Cancelled Urine Blood Cancelled Urine Nitrite Cancelled Ur Leukocyte Esterase Cancelled COVID-19 ([facility]) COVID-19 Clin Com 12/26/21 12/26/21 12/26/21 21:59 21:59 21:59 WBC RBC Hgb Hct MCV MCH MCHC RDW Plt Count MPV Immature Gran % (Auto) Neut % (Auto) Lymph % (Auto) [place] % (Auto) Eos % (Auto) Baso % (Auto) Lymph # (Auto) [place] # (Auto) Eos # (Auto) Baso # (Auto) Abs Immat Gran (auto) Absolute Neuts (auto) Absolute Nucleated RBC Nucleated RBC % (auto) PT 13.7 H INR 1.2 H Sodium Potassium Chloride Carbon Dioxide Anion Gap BUN Creatinine Estim Creat Clear Calc Estimated GFR Random Glucose Fasting Glucose Lactic Acid 0.7 Calcium Magnesium Total Bilirubin Direct Bilirubin AST ALT Alkaline Phosphatase Total Protein Albumin Lipase Alpha Fetoprotein Carcinoembryonic Ag Urine Color Urine Appearance Urine pH Ur Specific [place] Urine Protein Urine Glucose (UA) Urine Ketones Urine Blood Urine Nitrite Ur Leukocyte Esterase COVID-19 ([facility]) Negative COVID-19 Clin Com See Note 12/26/21 12/27/21 12/27/21 22:00 04:55 04:55 WBC 14.6 H RBC 4.35 Hgb 11.8 L Hct 35.3 L MCV 81.1 MCH 27.1 MCHC 33.4 RDW 13.9 Plt Count 231 MPV 8.6 L Immature Gran % (Auto) 0.8 H Neut % (Auto) 77.9 H Lymph % (Auto) 15.8 L [place] % (Auto) 4.2 Eos % (Auto) 1.0 Baso % (Auto) 0.3 Lymph # (Auto) 2.3 [place] # (Auto) 0.6 Eos # (Auto) 0.2 Baso # (Auto) 0.0 Abs Immat Gran (auto) 0.11 H Absolute Neuts (auto) 11.4 H Absolute Nucleated RBC 0.000 Nucleated RBC % (auto) 0.0 PT INR Sodium 136 137 Potassium 4.8 4.5 Chloride 104 103 Carbon Dioxide 10 L* D 15 L Anion Gap 27 H 24 H BUN 76 H 76 H Creatinine 11.45 H* 11.45 H* Estim Creat Clear Calc 6.9 6.9 Estimated GFR 3 3 Random Glucose 140 H 160 H Fasting Glucose Lactic Acid Calcium 8.3 L 8.0 L Magnesium Total Bilirubin Direct Bilirubin AST ALT Alkaline Phosphatase Total Protein Albumin Lipase Alpha Fetoprotein Carcinoembryonic Ag Urine Color Urine Appearance Urine pH Ur Specific [place] Urine Protein Urine Glucose (UA) Urine Ketones Urine Blood Urine Nitrite Ur Leukocyte Esterase COVID-19 ([facility]) COVID-19 Clin Com 12/27/21 12/27/21 12/28/21 04:55 04:55 05:25 WBC 14.8 H RBC 4.14 L Hgb 11.1 L Hct 33.3 L MCV 80.4 MCH 26.8 L MCHC 33.3 RDW 14.2 Plt Count 266 MPV 9.2 L Immature Gran % (Auto) 0.7 H Neut % (Auto) 80.0 H Lymph % (Auto) 12.9 L [place] % (Auto) 4.7 Eos % (Auto) 1.5 Baso % (Auto) 0.2 Lymph # (Auto) 1.9 [place] # (Auto) 0.7 Eos # (Auto) 0.2 Baso # (Auto) 0.0 Abs Immat Gran (auto) 0.10 H Absolute Neuts (auto) 11.9 H Absolute Nucleated RBC 0.000 Nucleated RBC % (auto) 0.0 PT INR Sodium Potassium Chloride Carbon Dioxide Anion Gap BUN Creatinine Estim Creat Clear Calc Estimated GFR Random Glucose Fasting Glucose Lactic Acid Calcium Magnesium Total Bilirubin Direct Bilirubin AST ALT Alkaline Phosphatase Total Protein Albumin Lipase Alpha Fetoprotein 4.7 Carcinoembryonic Ag 2.10 Urine Color Urine Appearance Urine pH Ur Specific [place] Urine Protein Urine Glucose (UA) Urine Ketones Urine Blood Urine Nitrite Ur Leukocyte Esterase COVID-19 ([facility]) COVID-19 Clin Com 12/28/21 12/28/21 05:25 05:25 WBC RBC Hgb Hct MCV MCH MCHC RDW Plt Count MPV Immature Gran % (Auto) Neut % (Auto) Lymph % (Auto) [place] % (Auto) Eos % (Auto) Baso % (Auto) Lymph # (Auto) [place] # (Auto) Eos # (Auto) Baso # (Auto) Abs Immat Gran (auto) Absolute Neuts (auto) Absolute Nucleated RBC Nucleated RBC % (auto) PT 12.8 INR 1.1 Sodium 139 Potassium 4.3 Chloride 101 Carbon Dioxide 19 L Anion Gap 23 H BUN 73 H Creatinine 9.94 H* Estim Creat Clear Calc 8.0 Estimated GFR 4 Random Glucose Fasting Glucose 182 H Lactic Acid Calcium 8.3 L Magnesium Total Bilirubin 0.8 Direct Bilirubin AST 32 H ALT 51 H Alkaline Phosphatase 197 H Total Protein 6.2 L Albumin 3.6 Lipase Alpha Fetoprotein Carcinoembryonic Ag Urine Color Urine Appearance Urine pH Ur Specific [place] Urine Protein Urine Glucose (UA) Urine Ketones Urine Blood Urine Nitrite Ur Leukocyte Esterase COVID-19 ([facility]) COVID-19 Clin Com Narrative Narrative: 12/26/21: 12 lead ekg- SR 117. ?LAE Airway Mallampati Class: III (Small mouth opening) TM Dist: >3cm Neck ROM: Full Loose/Missing/Broken Teeth: Yes ([place] teeth extracted ) and No (Denies broken or loose teeth) Heart: RRR Lungs: CTAB Assessment and Plan Assessment Anesthesia Assessment: Anesthesia Plan Discussed and Chart Reviewed Final Anesthetic Review Family History of Problems with Anesthesia: No History of Problems with Anesthesia: Yes (States woke up during tonsillectomy as a child. Wakes up very fast from anesthesia ) NPO: Yes ASA Class: IV and Emergency Final Preanesthetic Review: No Changes in Pt Med Stat, Meds/Allgs Chart Reviewed, Consent Obtained/Reviewed and Anes Risks/Benef Reviewed Patient Risk: High Procedure Risk: Low Assessment/Block/Sedation in SS: Assess/Block/Sedation-SS Anesthetic Plan Anesthetic Plan: GA Disposition: Standard PACU and Inp. Admit - IMC
--- NOTE | 2021-12-28 18:20 | P.OP_ITS ---
Operative Note Operative Note Date of Service: 12/28/21 Narrative: PreOperative Diagnosis: Bilateral hydroureteronephrosis Post Operative Diagnosis: bilateral hydroureteronephrosis Procedure: cystoscopy bilateral retrogrades, bilateral stent placement Surgeon: Dr Deshawn Kinney Anesthesia: general Indications for procedure: bilateral hydroureteronephrosis presume secondary to malignancy Procedure: After informed consent was verified the patient was brought to the operating room and placed in a supine position. Anesthesia was administered per protocol. The patient was placed in modified dorsal lithotomy position and prepped and draped in a sterile fashion. A safety pause time-out was performed. Laterality of procedure and antibiotics were confirmed, appropriate imaging was available A 22 [place] cystoscope was introduced per urethra. No abnormality was noted of urethra or bladder. Both ureteric orifices were seen in a normal position. The right ureter was cannulated with an open ended catheter and a retrograde examination was performed. hydroureteronephrosis was present. Sensor guidewire was placed up to the level renal pelvis. Aspiration was performed through the open-ended catheter. A 6 [place] by 22 cm double-J stent was placed. . The stent was seen with appropriate coil within the renal pelvis and in the bladder after deployment. The left ureteric orifice was edematous. Using an angled Glidewire we were able to gain access. The open-ended stent was placed. Hydroureteronephrosis was present with contrast. Aspiration was performed. A 6 [place] by 22 cm double-J stent with was placed without difficulty. A 12 [place] Lopez catheter was placed to allow drainage of the bladder. The patient tolerated the procedure well and was transferred in a stable condition to the recovery area. Pathology: None Drains: as above
[2021-12-28] MEDS: Midazolam HCl/PF 2 MG/2 ML VIAL IVPUSH (18:35)
[2021-12-28] MEDS: fentaNYL citrate/PF 100 MCG/2 ML VIAL 25 MCG IVPUSH ×3 (18:45→22:24)
[2021-12-28] MEDS: oxyCODONE HCl Immed Release 5 MG TABLET PO (19:50)
[2021-12-28] MEDS: Sodium Bicarbonate 8.4% 100 MEQ in Dextrose 5 % 900 ML 50 MEQ IV (20:43)
[2021-12-28] MEDS: LORazepam 1 MG TABLET PO (20:48)
--- NOTE | 2021-12-28 22:12 | PC.NURSE ---
Addendum entered by Susana Pope RN 12/29/21 06:41: no new orders at this time Addendum entered by Susana Pope RN 12/29/21 06:20: dr velasco updated, will report to jennie TAY Addendum entered by Susana Pope RN 12/29/21 04:03: pt only resting small amounts at a time continues to c/o discomfort with hebert, getting up frequently to the commode with the feeling to urinate, hebert continues to drain large amounts of blood tinged urine, pt bearing down on commode urine leaking around hebert, pt axnoius and blood pressure elvated, Pnr ativan and labatolol given as needed. Addendum entered by Susana Pope RN 12/28/21 23:12: pt continues to c/o discomfort having the urge to urinate. PRn fentnyl given. with no relief. Dr Velasco made aware, new order for oxybutin and pyrdium. will cont to monitor Original Note: pt to floor from PACU complaining of extreme discomfort from hebert cath, cath draining blood tinged urine, pt bladder scanned for 63 ML. pt asking to sit on commode with help with sensation of having to urintate, no relief from oxycodone. pt given PRn ativan pt states relief from ativan resting in bed eyes closed. will cont to monitor
[2021-12-28] MEDS: Phenazopyridine HCL 100 MG TABLET PO (23:20)
[2021-12-28] MEDS: Labetalol HCL 100 MG/20 ML VIAL 10 MG IVPUSH (23:44)
[2021-12-29] VITALS (7 sets, daily range): BP systolic 132–197; BP diastolic 64–105; PULSE 88–113; RESP 18–20; TEMP 36.6–37.4; O2SAT 91–98
[2021-12-29 00:44] LABS: Anion Gap 20 (12-20); Blood Urea Nitrogen 45 mg/dL (9-16); Calcium 8.2 mg/dL (8.4-10.2); Carbon Dioxide 23 mmol/L (22-29); Chloride 102 mmol/L (96-108); Creatinine Clr Calc Pharmacy 18.3; Estimated Glomerular Filt Rate 10; Glucose Random 219 mg/dL (60-115); Magnesium 1.6 mg/dL (1.6-2.6); Potassium 3.8 mmol/L (3.3-5.1); Sodium 141 mmol/L (135-145)
[2021-12-29] MEDS: Piperacillin Sodium/Tazobactam 2.25 GM in 0.9 % Sodium Chloride 50 ML IV ×3 (03:38→20:52)
[2021-12-29] MEDS: LORazepam 1 MG TABLET PO (03:46)
[2021-12-29] MEDS: Labetalol HCL 100 MG/20 ML VIAL 10 MG IVPUSH (03:46)
[2021-12-29] MEDS: Acetaminophen 325 MG TABLET 650 MG PO (07:29)
[2021-12-29] MEDS: amLODIPine Besylate 10 MG TABLET PO (07:30)
[2021-12-29] MEDS: hydrALAZINE HCl 10 MG TABLET PO ×3 (07:30→20:52)
--- NOTE | 2021-12-29 07:56 | PC.NURSE ---
Patient very uncomfortable the sensation of this catheter is so uncomfortable . Patient transitioned to recliner for comfort, hebert reposition d/t tugging., and now has relief. Patient did not sleep at all last night. Is now resting with eyes closed. Still hypertensive, oral meds provided, will recheck pressure. Patient has bicarb running.
[2021-12-29 07:59] LABS: MANUAL DIFF FLAG NO
[2021-12-29 08:02] LABS: Basophils Percent Auto 0.2 % (0-2); Eosinophils Percent Auto 0.1 % (0-4); Hematocrit 34.2 % (37.0-47.0); Hemoglobin 11.4 g/dl (12.0-16.0); Imm Gran Abs Auto 0.08 X10*3/uL (0.00-0.03); Imm Gran Pct Auto 0.6 % (0.0-0.4); Lymphocytes Absolute Auto 1.1 X10*3/uL (1.2-4.9); Lymphocytes Percent Auto 7.9 % (20-40); Mean Corpuscular HGB Conc 33.3 g/dl (31.0-35.0); Mean Corpuscular Hemoglobin 27.7 pg (27.0-33.0); Mean Platelet Volume 9.2 fL (9.4-12.3); Monocytes Absolute Auto 0.8 X10*3/uL (0.1-1.2); Monocytes Percent Auto 5.7 % (2-11); Neutrophils Absolute Auto 11.6 x10*3/uL (2.0-8.3); Neutrophils Percent Auto 85.5 % (45-73); Platelet Count 228 X10*3/uL (160-400); Red Blood Count 4.12 X10*6/uL (4.20-5.50); Red Cell Distribution Width 14.4 % (11.0-16.0); White Blood Count 13.6 X10*3/uL (4.8-10.8)
--- NOTE | 2021-12-29 08:17 | HO.POSTANES ---
Post Anesthesia Evaluation Post Anesthesia Evaluation Vital Signs: Vital Signs Temp Pulse Resp BP Pulse Ox O2 Del Method 12/29/21 07:38 97.9 F 93 18 179/77 H 92 Room Air 12/29/21 04:59 160/105 H 12/29/21 03:12 97.8 F 113 H 20 197/89 H 95 Room Air 12/28/21 23:35 98.4 F 117 H 20 191/91 H 94 Room Air Anesthesia: General Mental Status: Awake Pain Control: Satisfactory Nausea/Vomiting: None Hydration: Adequate Anesthesia-Related Issues: No Anes. Related Issues
[2021-12-29 08:21] LABS: Alanine Aminotransferase 43 U/L (0-31); Albumin Level 3.5 g/dL (3.5-5.0); Alkaline Phosphatase 176 U/L (39-117); Anion Gap 21 (12-20); Aspartate Amino Transferase 29 U/L (5-31); Bilirubin Total 0.8 mg/dL (0.0-1.0); Blood Urea Nitrogen 31 mg/dL (9-16); Calcium 8.4 mg/dL (8.4-10.2); Carbon Dioxide 23 mmol/L (22-29); Chloride 102 mmol/L (96-108); Creatinine Clr Calc Pharmacy 35.1; Estimated Glomerular Filt Rate 22; Glucose Fasting 187 mg/dL (60-99); Potassium 3.8 mmol/L (3.3-5.1); Sodium 142 mmol/L (135-145); Total Protein 6.1 g/dL (6.5-8.0)
--- NOTE | 2021-12-29 10:52 | P.PNNP_ITS ---
Subjective Subjective Date of Service: 12/29/21 Interval history: Events noted. Renal functions improving; Hypertensive Physical Exam Vital Signs: Vital Signs: Last Vital Signs Temp 97.9 F 12/29/21 07:38 Pulse 93 12/29/21 07:38 Resp 18 12/29/21 07:38 BP 179/77 H 12/29/21 07:38 Pulse Ox 92 12/29/21 07:38 O2 Del Method 12/29/21 07:38 O2 Flow Rate 2 12/28/21 19:32 BMI result Body Mass Index 49.4 Const: Other: Has a Lopez- Hematuria S/P Urology procedure General: no acute distress Eyes: EOM: EOMs intact bilaterally Neck: Neck: Yes supple Resp: Auscultation: diminished lung sounds Cardio: Rate: regular rate GI: Palpation (GI): Soft to palpation Neuro: General: moves all extremities Objective Data Labs CBC & Chem 7: 12/29/21 07:29 12/29/21 07:29 Labs: Laboratory Results - last 24 hr 12/27/21 12/28/21 12/29/21 04:55 23:57 07:29 WBC 13.6 H RBC 4.12 L Hgb 11.4 L Hct 34.2 L MCV 83.0 MCH 27.7 MCHC 33.3 RDW 14.4 Plt Count 228 MPV 9.2 L Immature Gran % (Auto) 0.6 H Neut % (Auto) 85.5 H Lymph % (Auto) 7.9 L [place] % (Auto) 5.7 Eos % (Auto) 0.1 Baso % (Auto) 0.2 Lymph # (Auto) 1.1 L [place] # (Auto) 0.8 Eos # (Auto) 0.0 Baso # (Auto) 0.0 Abs Immat Gran (auto) 0.08 H Absolute Neuts (auto) 11.6 H Absolute Nucleated RBC 0.000 Nucleated RBC % (auto) 0.0 Sodium 141 Potassium 3.8 Chloride 102 Carbon Dioxide 23 Anion Gap 20 BUN 45 H Creatinine 4.33 H* Estim Creat Clear Calc 18.3 Estimated GFR 10 Random Glucose 219 H Fasting Glucose Calcium 8.2 L Magnesium 1.6 Total Bilirubin AST ALT Alkaline Phosphatase Total Protein Albumin Alpha Fetoprotein 4.7 12/29/21 07:29 WBC RBC Hgb Hct MCV MCH MCHC RDW Plt Count MPV Immature Gran % (Auto) Neut % (Auto) Lymph % (Auto) [place] % (Auto) Eos % (Auto) Baso % (Auto) Lymph # (Auto) [place] # (Auto) Eos # (Auto) Baso # (Auto) Abs Immat Gran (auto) Absolute Neuts (auto) Absolute Nucleated RBC Nucleated RBC % (auto) Sodium 142 Potassium 3.8 Chloride 102 Carbon Dioxide 23 Anion Gap 21 H BUN 31 H Creatinine 2.26 H Estim Creat Clear Calc 35.1 Estimated GFR 22 Random Glucose Fasting Glucose 187 H Calcium 8.4 Magnesium Total Bilirubin 0.8 AST 29 ALT 43 H Alkaline Phosphatase 176 H Total Protein 6.1 L Albumin 3.5 Alpha Fetoprotein Microbiology Microbiology Results: Microbiology 12/26/21 21:59 Blood - Venous Blood Culture - Preliminary No growth after 48 hours. 12/26/21 21:59 Blood - Venous Blood Culture - Preliminary No growth after 48 hours. Procedures Date of Service Date of Service: 12/29/21 Assessment & Plan Assessment and plan (1) Acute renal failure: Status: Acute Assessment and Plan: FLOR due to obstructive uropathy Metabolically acidotic(resolved) Remains hypertensive Could switch IV NaHCO3 to Ringer lactate Shall start Carvedilol 12.5 mg bid C/W Amlodipine 10 mg daily S/P Urology intervention Renal function improving Oncology seen patient Continue rest of current management Labs AM; Shall F/U closely Time Spent With Patient Time: Total time spent is greater than 50% in coordination of care (as documented) at patient's floor/unit and/or counseling patient: Progress Note: Quality Stroke Does the patient have a stroke diagnosis?: No
--- NOTE | 2021-12-29 11:31 | MHC.CM.PN ---
Per ROUNDS discussion, Patient is not yet medically cleared for dc (IV Labetalol today, IV Zosyn); home is the goal and cM will continue to follow.
--- NOTE | 2021-12-29 12:32 | MHC.CLN ---
RE: CONSULT PO INTAKE 100% X 2 MEALS MONITOR PO INTAKE CLOSELY IF POOR PO, RECOMMEND ADDING ENSURE BID
--- NOTE | 2021-12-29 13:59 | P.PNIM_ITS ---
Subjective Subjective Date of Service: 12/29/21 Interval History: Doing well post procedure. Review of Systems denies chest pain Denies shortness of breath Denies nausea vomiting diarrhea Denies fever chills Physical Exam Vital Signs: Vital Signs: Last Vital Signs Temp 97.8 F 12/29/21 11:09 Pulse 108 H 12/29/21 11:09 Resp 20 12/29/21 11:09 BP 168/70 H 12/29/21 11:09 Pulse Ox 94 12/29/21 11:09 O2 Del Method 12/29/21 11:09 O2 Flow Rate 2 12/28/21 19:32 BMI result Body Mass Index 49.4 Const: Other: no acute distress Resp: Other: clear to auscultation bilaterally no rales rhonchi or wheezes Cardio: Other: no S4; positive S1-S2; no S3 murmurs rubs or gallops GI: Other: soft nontender nondistended with normoactive bowel sounds Extrem: Other: no edema bilaterally Objective Data Active Medications Acetaminophen (Acetaminophen 325 Mg Tablet) 650 mg PO Q6H PRN PRN Reason: Pain, Mild (Pain Scale 1-3) Last Admin: 12/29/21 07:29 Dose: 650 mg Documented By: GIACOMO Amlodipine Besylate (Amlodipine Besylate 10 Mg Tablet) 10 mg PO DAILY [facility]; Protocol Last Admin: 12/29/21 07:30 Dose: 10 mg Documented By: GIACOMO Fentanyl (Fentanyl Citrate/Pf 100 Mcg/2 Ml Vial) 25 mcg IVPUSH Q5M PRN; Protocol PRN Reason: Pain, Moderate (Pain Scale 4-6 Last Admin: 12/28/21 22:24 Dose: 25 mcg Documented By: CATARINO Fentanyl (Fentanyl Citrate/Pf 100 Mcg/2 Ml Vial) 25 mcg IVPUSH Q5M PRN; Protocol PRN Reason: Pain, Moderate (Pain Scale 4-6 Heparin Sodium (Porcine) (Heparin Sodium,Porcine 5,000 Unit/Ml Vial) 5,000 unit SUBCUT Q8H [facility] Last Admin: 12/29/21 09:36 Dose: Not Given Documented By: GIACOMO Non-Admin Reason: IV Running Hydralazine HCl (Hydralazine Hcl 10 Mg Tablet) 10 mg PO TID [facility]; Protocol Last Admin: 12/29/21 07:30 Dose: 10 mg Documented By: GIACOMO Piperacillin Sod/Tazobactam (Sod 2.25 gm/ Sodium Chloride) 50 mls @ 100 mls/hr IV Q8H [facility] Last Infusion: 12/29/21 13:26 Dose: 0 mls/hr Documented By: GIACOMO Sodium Bicarbonate 100 meq/ (Dextrose) 1,000 mls @ 50 mls/hr IV .Q20H [facility] Last Admin: 12/28/21 20:43 Dose: 50 mls/hr Documented By: CATARINO Labetalol HCl (Labetalol Hcl 100 Mg/20 Ml Vial) 10 mg IVPUSH Q4H PRN PRN Reason: BP>160/90 Last Admin: 12/29/21 03:46 Dose: 10 mg Documented By: CATARINO Lorazepam (Lorazepam 1 Mg Tablet) 1 mg PO Q6H PRN PRN Reason: Anxiety Last Admin: 12/29/21 03:46 Dose: 1 mg Documented By: CATARINO Melatonin (Melatonin 3 Mg Tablet) 6 mg PO BEDTIME PRN PRN Reason: Insomnia Ondansetron HCl (Ondansetron Hcl 4 Mg/2 Ml Vial) 4 mg IVPUSH ONCE PRN PRN Reason: Nausea and Vomiting Ondansetron HCl (Ondansetron Hcl 4 Mg/2 Ml Vial) 4 mg IVPUSH ONCE PRN PRN Reason: Nausea and Vomiting Oxycodone HCl (Oxycodone Hcl Immed Release 5 Mg Tablet) 5 mg PO Q4H PRN PRN Reason: Pain, Moderate (Pain Scale 4-6 Last Admin: 12/28/21 19:50 Dose: 5 mg Documented By: CATARINO Oxycodone HCl (Oxycodone Hcl Immed Release 5 Mg Tablet) 5 mg PO ONCE PRN PRN Reason: Pain, Severe (Pain Scale 7-10) Sodium Chloride (0.9 % Sodium Chloride Flush 3 Ml Syringe) 3 ml IVFLUSH QSHIFT [facility] Last Admin: 12/29/21 09:36 Dose: Not Given Documented By: GIACOMO Non-Admin Reason: IV Running Labs CBC & Chem 7: 12/29/21 07:29 12/29/21 07:29 Labs: Laboratory Results - last 24 hr 12/28/21 12/29/21 12/29/21 23:57 07:29 07:29 MCV 83.0 MCH 27.7 MCHC 33.3 RDW 14.4 Plt Count 228 MPV 9.2 L Immature Gran % (Auto) 0.6 H Neut % (Auto) 85.5 H Lymph % (Auto) 7.9 L [place] % (Auto) 5.7 Eos % (Auto) 0.1 Baso % (Auto) 0.2 Lymph # (Auto) 1.1 L [place] # (Auto) 0.8 Eos # (Auto) 0.0 Baso # (Auto) 0.0 Abs Immat Gran (auto) 0.08 H Absolute Neuts (auto) 11.6 H Absolute Nucleated RBC 0.000 Nucleated RBC % (auto) 0.0 Anion Gap 20 21 H Estim Creat Clear Calc 18.3 35.1 Estimated GFR 10 22 Random Glucose 219 H Fasting Glucose 187 H Calcium 8.2 L 8.4 Magnesium 1.6 Total Bilirubin 0.8 AST 29 ALT 43 H Alkaline Phosphatase 176 H Total Protein 6.1 L Albumin 3.5 Microbiology Microbiology Results: Microbiology 12/26/21 21:59 Blood Culture - Preliminary Blood - Venous No growth after 48 hours. 12/26/21 21:59 Blood Culture - Preliminary Blood - Venous No growth after 48 hours. Assessment and Plan (1) Hydroureteronephrosis: Status: Acute (2) Acute renal failure: Status: Acute (3) Colonic mass: Status: Acute (4) Hypertension: Status: Acute Plan 56-year-old with no significant past medical history presented to the hospital today with a chief complaint of difficulty urination.? CT abdomen showed moderate hydronephrosis/perinephric stranding/hydroureter/retroperitoneal lymphadenopathy/sigmoid colonic mass/bony metastasis.Poorly controlled HTN on arrival 1.Hydroureteonephrosis - Excellent response to stenting - Lopez as per Urology 2.FLOR - normalizing -follow renals/divalents -DC Bicarb drip...LR 3.Colonic Mass - GI counseled for sigmoid mass -Oncology consult 4.HTN - poorly controlled - increase amlodipine; add hydralazine... add Coreg - adjust as indicated Full Code heparin will require ongoing hospitalization for IV antibiotics and surgical intervention of hydro ureteral nephrosis Quality Stroke Does the patient have a stroke diagnosis?: No VTE Prior VTE?: No VTE Risk Level:: Medical - moderate - high VTE Device Contraindication: Treatment Not Indicated VTE Drug Contraindication: N/A - Med Ordered
[2021-12-29] MEDS: carvediloL 12.5 MG TABLET PO ×2 (14:15→20:52)
[2021-12-29] MEDS: Lactated Ringers 1,000 ML 100 ML IVCONT (14:20)
[2021-12-29] MEDS: Heparin Sodium,Porcine 5,000 UNIT/ML VIAL 5000 UNIT SUBCUT (14:48)
--- NOTE | 2021-12-29 15:41 | PM.EVENT ---
Event Note Date of Service: 12/29/21 Event Note: GI Consult dictated Colonoscopy for further evaluation of abnl ct scan.
--- NOTE | 2021-12-29 15:43 | MHC.SHP ---
Pre-Procedural Eval Section A Date of Service: 12/29/21 The patient is an INPATIENT: Yes Changes since office visit: No Cold of Flu in the past 2 weeks, No New Medical Problems, No Changes in Medication and No Patient answered all questions The History & Physical has been completed within 30 days and I have reviewed it.: Yes Section B Chief Complaint: FLOR Allergies: Allergies Allergy/AdvReac Type Severity Reaction Status Date / Time neomycin Allergy Intermediate Rash Verified 12/16/21 12:30 parafin wax Allergy Intermediate Rash Uncoded 12/26/21 13:49 Plan I have reviewed the history and physical and performed a pertinent physical examination on my patient. No changes have occurred unless specified.
[2021-12-29] MEDS: PEG 3350/Na Sulf,Bicarb,Cl/KCL 4,000 ML SOLN.RECON 4000 ML PO (17:31)
[2021-12-29] MEDS: 0.9 % Sodium Chloride Flush 3 ML SYRINGE IVFLUSH (20:53)
[2021-12-30] VITALS (10 sets, daily range): BP systolic 133–170; BP diastolic 58–91; PULSE 84–106; RESP 16–20; TEMP 36.4–37.7; O2SAT 89–97
--- NOTE | 2021-12-30 01:16 | CONS_ITS ---
DATE OF SERVICE: 12/29/2021 REFERRING PHYSICIAN: Aki Huff DO REASON FOR CONSULTATION: Abnormal CT scan of the colon. HISTORY OF PRESENT ILLNESS: The patient is a pleasant 56-year-old woman, who was admitted to the hospital on December 26 after presenting to emergency room with complaints of difficulty urinating. She has had some urinary tract symptoms over the past month to 2 months prior to admission and was seen at several urgent care centers and prescribed antibiotics. Cultures were apparently negative. She was evaluated in the Emergency Department for symptoms of hematuria and urinary urgency and was noted to have renal failure with a creatinine of 11.45. CT scanning was subsequently obtained, which was reviewed today. This is interpreted as showing a probable sigmoid colon mass. The patient denies any change in her bowel habits except for occasional rectal bleeding when she gets constipated. She has never undergone colonoscopy. PAST MEDICAL HISTORY: 1. Hypertension. 2. Renal failure, as above. 3. Hydronephrosis, status post stent placement. CURRENT MEDICATIONS: Her current medication list is reviewed in the chart. ALLERGIES: NEOMYCIN AND PARAFFIN WAX. FAMILY HISTORY: This is negative for colon cancer. SOCIAL HISTORY: She does not smoke. She occasionally drinks alcohol. REVIEW OF SYSTEMS: SKIN: No pruritus. HEENT: Negative. CARDIOPULMONARY: She denies shortness of breath or chest pain. GASTROINTESTINAL: As above. GENITOURINARY: Negative. NEUROPSYCHIATRIC: Negative. PHYSICAL EXAMINATION: GENERAL: Shows a pleasant female, lying comfortably in chair. VITAL SIGNS: Reviewed in electronic medical record and are stable. SKIN: Anicteric. HEENT: Shows no scleral icterus. NECK: Without lymphadenopathy or thyromegaly. LUNGS: Clear. HEART: Shows a regular rate and rhythm. S1 and S2. No murmur. ABDOMEN: Soft without focal masses or tenderness. Bowel sounds are present. No organomegaly is noted. EXTREMITIES: Without edema. Laboratory studies and CT scan is reviewed. IMPRESSION: Abnormal CT scan of the colon. I have discussed colonoscopy with the patient including risks and benefits. She understands and agrees to proceed. This will be arranged for tomorrow. Thanks for asking me to see her. I will follow her in the hospital with you. MD MARY JO Jo/FELIX / [phone]
[2021-12-30] MEDS: Piperacillin Sodium/Tazobactam 2.25 GM in 0.9 % Sodium Chloride 50 ML IV ×3 (04:07→20:50)
[2021-12-30] MEDS: Lactated Ringers 1,000 ML 100 ML IVCONT ×2 (04:48→17:07)
[2021-12-30 06:14] LABS: MANUAL DIFF FLAG NO
[2021-12-30 06:24] LABS: Basophils Percent Auto 0.2 % (0-2); Eosinophils Absolute Auto 0.1 X10*3/uL (0.0-0.4); Eosinophils Percent Auto 0.5 % (0-4); Hematocrit 31.2 % (37.0-47.0); Imm Gran Abs Auto 0.09 X10*3/uL (0.00-0.03); Imm Gran Pct Auto 0.6 % (0.0-0.4); Lymphocytes Absolute Auto 1.7 X10*3/uL (1.2-4.9); Mean Corpuscular HGB Conc 32.1 g/dl (31.0-35.0); Mean Corpuscular Volume 84.3 fL (80.0-98.0); Mean Platelet Volume 9.3 fL (9.4-12.3); Monocytes Absolute Auto 0.7 X10*3/uL (0.1-1.2); Monocytes Percent Auto 5.2 % (2-11); Neutrophils Absolute Auto 11.3 x10*3/uL (2.0-8.3); Neutrophils Percent Auto 81.5 % (45-73); Platelet Count 210 X10*3/uL (160-400); Red Cell Distribution Width 14.7 % (11.0-16.0); White Blood Count 13.9 X10*3/uL (4.8-10.8)
[2021-12-30 07:15] LABS: Alanine Aminotransferase 40 U/L (0-31); Albumin Level 3.2 g/dL (3.5-5.0); Alkaline Phosphatase 162 U/L (39-117); Anion Gap 17 (12-20); Aspartate Amino Transferase 28 U/L (5-31); Bilirubin Total 0.7 mg/dL (0.0-1.0); Blood Urea Nitrogen 10 mg/dL (9-16); Calcium 8.2 mg/dL (8.4-10.2); Carbon Dioxide 28 mmol/L (22-29); Chloride 102 mmol/L (96-108); Creatinine Clr Calc Pharmacy 116.8; Estimated Glomerular Filt Rate > 60; Glucose Fasting 157 mg/dL (60-99); Potassium 3.7 mmol/L (3.3-5.1); Sodium 143 mmol/L (135-145); Total Protein 5.5 g/dL (6.5-8.0)
--- NOTE | 2021-12-30 07:20 | P.CONAN_ITS ---
HPI - Anesthesia Eval Consult details Narrative: Abnormal CT scan [facility] Active Problems Active Problems: All Active Problems (Updated 12/28/21 @ 05:25 by Kai Hall MD) Colonic mass (Acute) Hypertension (Acute) Hydroureteronephrosis (Acute) Acute renal failure (Acute) Hypertensive emergency (Acute) Urgency-frequency syndrome (Acute) Family History Family history of problems with anesthesia: No Surgical History Surgical History (Updated 12/28/21 @ 17:31 by Iman León MD) History of tonsillectomy [place] teeth extracted History of Problems with Anesthesia: Yes (States woke up during tonsillectomy as a child. Wakes up very fast from anesthesia ) Social History Social History (Updated 12/28/21 @ 16:58 by Iman León MD) Household Members: Other Household Members Other:: roommate Housing: House Do you presently have visiting nurse or other home services: No Patient Tobacco Use Status: Never used Tobacco Use of substances other than those prescribed or required for medical reasons: No Currently Displaying Signs/Symptoms of Drug Intoxication Withdrawal: No Have you been hit, kicked, punched, or otherwise hurt by someone within the past year? If so, by whom?: No Do you feel safe in your current relationship?: No Current Relationship Is there a partner from a previous relationship who is making you feel unsafe now?: No Are you made to feel afraid or neglected: No Advance Directives: No Advance Directives Information Provided: No Do you have thoughts of harming others: None Do you have a plan to hurt others: No Plan Recently lost weight without trying: Yes How much weight loss: 2-13 pounds Eating poorly because of decreased appetite: Yes Nutrition screen score: 4 Nutrition Risks: No Nutritional Risk Patient : No : No Poor oral hygiene: No service: No Current occupational status: employed Meds Allergies Allergy/AdvReac Type Severity Reaction Status Date / Time neomycin Allergy Intermediate Rash Verified 12/16/21 12:30 parafin wax Allergy Intermediate Rash Uncoded 12/26/21 13:49 Active Medications: Current Medications Acetaminophen (Acetaminophen 325 Mg Tablet) 650 mg PO Q6H PRN PRN Reason: Pain, Mild (Pain Scale 1-3) Last Admin: 12/29/21 07:29 Dose: 650 mg Amlodipine Besylate (Amlodipine Besylate 10 Mg Tablet) 10 mg PO DAILY [facility]; Protocol Last Admin: 12/29/21 07:30 Dose: 10 mg Carvedilol (Carvedilol 12.5 Mg Tablet) 12.5 mg PO BID [facility]; Protocol Last Admin: 12/29/21 20:52 Dose: 12.5 mg Fentanyl (Fentanyl Citrate/Pf 100 Mcg/2 Ml Vial) 25 mcg IVPUSH Q5M PRN; Protocol PRN Reason: Pain, Moderate (Pain Scale 4-6 Last Admin: 12/28/21 22:24 Dose: 25 mcg Fentanyl (Fentanyl Citrate/Pf 100 Mcg/2 Ml Vial) 25 mcg IVPUSH Q5M PRN; Protocol PRN Reason: Pain, Moderate (Pain Scale 4-6 Heparin Sodium (Porcine) (Heparin Sodium,Porcine 5,000 Unit/Ml Vial) 5,000 unit SUBCUT Q8H [facility] Last Admin: 12/30/21 00:22 Dose: Not Given Hydralazine HCl (Hydralazine Hcl 10 Mg Tablet) 10 mg PO TID [facility]; Protocol Last Admin: 12/29/21 20:52 Dose: 10 mg Piperacillin Sod/Tazobactam (Sod 2.25 gm/ Sodium Chloride) 50 mls @ 100 mls/hr IV Q8H [facility] Last Infusion: 12/30/21 04:48 Dose: Infused Lactated Ringer's (Lr) 1,000 mls @ 100 mls/hr IVCONT .Q10H [facility] Last Admin: 12/30/21 04:48 Dose: 100 mls/hr Lorazepam (Lorazepam 1 Mg Tablet) 1 mg PO Q6H PRN PRN Reason: Anxiety Last Admin: 12/29/21 03:46 Dose: 1 mg Melatonin (Melatonin 3 Mg Tablet) 6 mg PO BEDTIME PRN PRN Reason: Insomnia Ondansetron HCl (Ondansetron Hcl 4 Mg/2 Ml Vial) 4 mg IVPUSH ONCE PRN PRN Reason: Nausea and Vomiting Ondansetron HCl (Ondansetron Hcl 4 Mg/2 Ml Vial) 4 mg IVPUSH ONCE PRN PRN Reason: Nausea and Vomiting Oxycodone HCl (Oxycodone Hcl Immed Release 5 Mg Tablet) 5 mg PO Q4H PRN PRN Reason: Pain, Moderate (Pain Scale 4-6 Last Admin: 12/28/21 19:50 Dose: 5 mg Oxycodone HCl (Oxycodone Hcl Immed Release 5 Mg Tablet) 5 mg PO ONCE PRN PRN Reason: Pain, Severe (Pain Scale 7-10) Sodium Chloride (0.9 % Sodium Chloride Flush 3 Ml Syringe) 3 ml IVFLUSH QSHIFT [facility] Last Admin: 12/29/21 20:53 Dose: 3 ml Home Medications Medication Instructions Recorded Confirmed Last Taken Type No Known Home Meds 12/16/21 12/27/21 Unknown History Exam Exam Date and Time: December 30, 2021 0720 Height,Weight and Vital Signs: Height 5 ft 3 in Weight 126.552 kg Last Vital Signs Temp 99.0 F 12/30/21 03:22 Pulse 94 12/30/21 03:22 Resp 20 12/30/21 03:22 BP 152/72 H 12/30/21 03:22 Pulse Ox 93 12/30/21 03:22 O2 Del Method 12/30/21 03:22 O2 Flow Rate 2 12/28/21 19:32 Pertinent Lab Results Pertinent Lab Results: Laboratory Tests 12/26/21 12/26/21 12/26/21 13:51 19:49 19:49 WBC 15.4 H RBC 4.45 Hgb 12.1 Hct 36.1 L MCV 81.1 MCH 27.2 MCHC 33.5 RDW 14.0 Plt Count 250 MPV 8.8 L Immature Gran % (Auto) 0.7 H Neut % (Auto) 78.6 H Lymph % (Auto) 15.5 L [place] % (Auto) 4.1 Eos % (Auto) 0.8 Baso % (Auto) 0.3 Lymph # (Auto) 2.4 [place] # (Auto) 0.6 Eos # (Auto) 0.1 Baso # (Auto) 0.0 Abs Immat Gran (auto) 0.11 H Absolute Neuts (auto) 12.1 H Absolute Nucleated RBC 0.000 Nucleated RBC % (auto) 0.0 PT INR Sodium 137 Potassium 4.5 Chloride 103 Carbon Dioxide 13 L Anion Gap 26 H BUN 76 H Creatinine 11.49 H* Estim Creat Clear Calc 6.9 Estimated GFR 3 Random Glucose 130 H Fasting Glucose Lactic Acid Calcium 8.6 Magnesium 2.0 Total Bilirubin 0.7 Direct Bilirubin 0.3 AST 34 H ALT 51 H Alkaline Phosphatase 214 H Total Protein 6.7 Albumin 3.8 Lipase 46 Alpha Fetoprotein Carcinoembryonic Ag Urine Color Cancelled Urine Appearance Cancelled Urine pH Cancelled Ur Specific [place] Cancelled Urine Protein Cancelled Urine Glucose (UA) Cancelled Urine Ketones Cancelled Urine Blood Cancelled Urine Nitrite Cancelled Ur Leukocyte Esterase Cancelled COVID-19 ([facility]) COVID-19 Clin Com 12/26/21 12/26/21 12/26/21 21:59 21:59 21:59 WBC RBC Hgb Hct MCV MCH MCHC RDW Plt Count MPV Immature Gran % (Auto) Neut % (Auto) Lymph % (Auto) [place] % (Auto) Eos % (Auto) Baso % (Auto) Lymph # (Auto) [place] # (Auto) Eos # (Auto) Baso # (Auto) Abs Immat Gran (auto) Absolute Neuts (auto) Absolute Nucleated RBC Nucleated RBC % (auto) PT 13.7 H INR 1.2 H Sodium Potassium Chloride Carbon Dioxide Anion Gap BUN Creatinine Estim Creat Clear Calc Estimated GFR Random Glucose Fasting Glucose Lactic Acid 0.7 Calcium Magnesium Total Bilirubin Direct Bilirubin AST ALT Alkaline Phosphatase Total Protein Albumin Lipase Alpha Fetoprotein Carcinoembryonic Ag Urine Color Urine Appearance Urine pH Ur Specific [place] Urine Protein Urine Glucose (UA) Urine Ketones Urine Blood Urine Nitrite Ur Leukocyte Esterase COVID-19 ([facility]) Negative COVID-19 Clin Com See Note 12/26/21 12/27/21 12/27/21 22:00 04:55 04:55 WBC 14.6 H RBC 4.35 Hgb 11.8 L Hct 35.3 L MCV 81.1 MCH 27.1 MCHC 33.4 RDW 13.9 Plt Count 231 MPV 8.6 L Immature Gran % (Auto) 0.8 H Neut % (Auto) 77.9 H Lymph % (Auto) 15.8 L [place] % (Auto) 4.2 Eos % (Auto) 1.0 Baso % (Auto) 0.3 Lymph # (Auto) 2.3 [place] # (Auto) 0.6 Eos # (Auto) 0.2 Baso # (Auto) 0.0 Abs Immat Gran (auto) 0.11 H Absolute Neuts (auto) 11.4 H Absolute Nucleated RBC 0.000 Nucleated RBC % (auto) 0.0 PT INR Sodium 136 137 Potassium 4.8 4.5 Chloride 104 103 Carbon Dioxide 10 L* D 15 L Anion Gap 27 H 24 H BUN 76 H 76 H Creatinine 11.45 H* 11.45 H* Estim Creat Clear Calc 6.9 6.9 Estimated GFR 3 3 Random Glucose 140 H 160 H Fasting Glucose Lactic Acid Calcium 8.3 L 8.0 L Magnesium Total Bilirubin Direct Bilirubin AST ALT Alkaline Phosphatase Total Protein Albumin Lipase Alpha Fetoprotein Carcinoembryonic Ag Urine Color Urine Appearance Urine pH Ur Specific [place] Urine Protein Urine Glucose (UA) Urine Ketones Urine Blood Urine Nitrite Ur Leukocyte Esterase COVID-19 ([facility]) COVID-19 Clin Com 12/27/21 12/27/21 12/28/21 04:55 04:55 05:25 WBC 14.8 H RBC 4.14 L Hgb 11.1 L Hct 33.3 L MCV 80.4 MCH 26.8 L MCHC 33.3 RDW 14.2 Plt Count 266 MPV 9.2 L Immature Gran % (Auto) 0.7 H Neut % (Auto) 80.0 H Lymph % (Auto) 12.9 L [place] % (Auto) 4.7 Eos % (Auto) 1.5 Baso % (Auto) 0.2 Lymph # (Auto) 1.9 [place] # (Auto) 0.7 Eos # (Auto) 0.2 Baso # (Auto) 0.0 Abs Immat Gran (auto) 0.10 H Absolute Neuts (auto) 11.9 H Absolute Nucleated RBC 0.000 Nucleated RBC % (auto) 0.0 PT INR Sodium Potassium Chloride Carbon Dioxide Anion Gap BUN Creatinine Estim Creat Clear Calc Estimated GFR Random Glucose Fasting Glucose Lactic Acid Calcium Magnesium Total Bilirubin Direct Bilirubin AST ALT Alkaline Phosphatase Total Protein Albumin Lipase Alpha Fetoprotein 4.7 Carcinoembryonic Ag 2.10 Urine Color Urine Appearance Urine pH Ur Specific [place] Urine Protein Urine Glucose (UA) Urine Ketones Urine Blood Urine Nitrite Ur Leukocyte Esterase COVID-19 ([facility]) COVID-19 Clin Com 12/28/21 12/28/21 12/28/21 05:25 05:25 23:57 WBC RBC Hgb Hct MCV MCH MCHC RDW Plt Count MPV Immature Gran % (Auto) Neut % (Auto) Lymph % (Auto) [place] % (Auto) Eos % (Auto) Baso % (Auto) Lymph # (Auto) [place] # (Auto) Eos # (Auto) Baso # (Auto) Abs Immat Gran (auto) Absolute Neuts (auto) Absolute Nucleated RBC Nucleated RBC % (auto) PT 12.8 INR 1.1 Sodium 139 141 Potassium 4.3 3.8 Chloride 101 102 Carbon Dioxide 19 L 23 Anion Gap 23 H 20 BUN 73 H 45 H Creatinine 9.94 H* 4.33 H* Estim Creat Clear Calc 8.0 18.3 Estimated GFR 4 10 Random Glucose 219 H Fasting Glucose 182 H Lactic Acid Calcium 8.3 L 8.2 L Magnesium 1.6 Total Bilirubin 0.8 Direct Bilirubin AST 32 H ALT 51 H Alkaline Phosphatase 197 H Total Protein 6.2 L Albumin 3.6 Lipase Alpha Fetoprotein Carcinoembryonic Ag Urine Color Urine Appearance Urine pH Ur Specific [place] Urine Protein Urine Glucose (UA) Urine Ketones Urine Blood Urine Nitrite Ur Leukocyte Esterase COVID-19 ([facility]) COVID-19 Clin Com 12/29/21 12/29/21 12/30/21 07:29 07:29 06:05 WBC 13.6 H 13.9 H RBC 4.12 L 3.70 L Hgb 11.4 L 10.0 L Hct 34.2 L 31.2 L MCV 83.0 84.3 MCH 27.7 27.0 MCHC 33.3 32.1 RDW 14.4 14.7 Plt Count 228 210 MPV 9.2 L 9.3 L Immature Gran % (Auto) 0.6 H 0.6 H Neut % (Auto) 85.5 H 81.5 H Lymph % (Auto) 7.9 L 12.0 L [place] % (Auto) 5.7 5.2 Eos % (Auto) 0.1 0.5 Baso % (Auto) 0.2 0.2 Lymph # (Auto) 1.1 L 1.7 [place] # (Auto) 0.8 0.7 Eos # (Auto) 0.0 0.1 Baso # (Auto) 0.0 0.0 Abs Immat Gran (auto) 0.08 H 0.09 H Absolute Neuts (auto) 11.6 H 11.3 H Absolute Nucleated RBC 0.000 0.000 Nucleated RBC % (auto) 0.0 0.0 PT INR Sodium 142 Potassium 3.8 Chloride 102 Carbon Dioxide 23 Anion Gap 21 H BUN 31 H Creatinine 2.26 H Estim Creat Clear Calc 35.1 Estimated GFR 22 Random Glucose Fasting Glucose 187 H Lactic Acid Calcium 8.4 Magnesium Total Bilirubin 0.8 Direct Bilirubin AST 29 ALT 43 H Alkaline Phosphatase 176 H Total Protein 6.1 L Albumin 3.5 Lipase Alpha Fetoprotein Carcinoembryonic Ag Urine Color Urine Appearance Urine pH Ur Specific [place] Urine Protein Urine Glucose (UA) Urine Ketones Urine Blood Urine Nitrite Ur Leukocyte Esterase COVID-19 ([facility]) COVID-19 Clin Com 12/30/21 06:05 WBC RBC Hgb Hct MCV MCH MCHC RDW Plt Count MPV Immature Gran % (Auto) Neut % (Auto) Lymph % (Auto) [place] % (Auto) Eos % (Auto) Baso % (Auto) Lymph # (Auto) [place] # (Auto) Eos # (Auto) Baso # (Auto) Abs Immat Gran (auto) Absolute Neuts (auto) Absolute Nucleated RBC Nucleated RBC % (auto) PT INR Sodium 143 Potassium 3.7 Chloride 102 Carbon Dioxide 28 Anion Gap 17 BUN 10 D Creatinine 0.68 Estim Creat Clear Calc 116.8 Estimated GFR > 60 Random Glucose Fasting Glucose 157 H Lactic Acid Calcium 8.2 L Magnesium Total Bilirubin 0.7 Direct Bilirubin AST 28 ALT 40 H Alkaline Phosphatase 162 H Total Protein 5.5 L Albumin 3.2 L Lipase Alpha Fetoprotein Carcinoembryonic Ag Urine Color Urine Appearance Urine pH Ur Specific [place] Urine Protein Urine Glucose (UA) Urine Ketones Urine Blood Urine Nitrite Ur Leukocyte Esterase COVID-19 ([facility]) COVID-19 Clin Com Airway Mallampati Class: III TM Dist: >3cm Neck ROM: Full Loose/Missing/Broken Teeth: No Heart: [id number] Lungs: cta b/l Assessment and Plan Assessment Anesthesia Assessment: Anesthesia Plan Discussed and Chart Reviewed Final Anesthetic Review Family History of Problems with Anesthesia: No History of Problems with Anesthesia: Yes (States woke up during tonsillectomy as a child. Wakes up very fast from anesthesia ) NPO: Yes ASA Class: III Final Preanesthetic Review: No Changes in Pt Med Stat, Meds/Allgs Chart Reviewed, Consent Obtained/Reviewed and Anes Risks/Benef Reviewed Patient Risk: Intermediate Procedure Risk: Intermediate Assessment/Block/Sedation in SS: Assess/Block/Sedation-SS Anesthetic Plan Anesthetic Plan: MAC: and Agree w/ Assess. and Plan Disposition: Standard PACU
--- NOTE | 2021-12-30 08:05 | PM.OP ---
Brief Operative Note Date of Service: 12/30/21 Pre-op diagnosis: Abnl ct scan suggesting sigmoid mass Post-op diagnosis: other (colon polyp, no sigmoid mass) Procedure: colonoscopy Surgeon: Shun Bates Anesthesia: MAC Was an Herbologist used for this Procedure?: No Estimated blood loss (mL): 0 Pathology: other (polyp cecum) Condition: stable Disposition: PACU
--- NOTE | 2021-12-30 08:07 | PM.EVENT ---
Event Note Date of Service: 12/30/21 Event Note: Colonoscopy note dictated no sigmoid mass 8mm cecal polyp, snared rec IR consultation for ct guided bx as per ct recommendations.
[2021-12-30] MEDS: amLODIPine Besylate 10 MG TABLET PO (09:26)
[2021-12-30] MEDS: 0.9 % Sodium Chloride Flush 3 ML SYRINGE IVFLUSH ×2 (09:26→20:57)
[2021-12-30] MEDS: carvediloL 12.5 MG TABLET PO ×2 (09:26→20:50)
[2021-12-30] MEDS: hydrALAZINE HCl 10 MG TABLET PO ×3 (09:27→20:50)
--- NOTE | 2021-12-30 11:35 | PM.PNNEP ---
Subjective Subjective Date of Service: 12/30/21 Interval history: Feels better; Tired. Renal functions back to baseline Physical Exam Vital Signs: Vital Signs: Last Vital Signs Temp 98.9 F 12/30/21 11:15 Pulse 84 12/30/21 11:15 Resp 18 12/30/21 11:15 BP 133/61 12/30/21 11:15 Pulse Ox 93 12/30/21 11:15 O2 Del Method 12/30/21 11:15 O2 Flow Rate 2 12/28/21 19:32 BMI result Body Mass Index 49.4 Const: General: no acute distress Orientation/consciousness: patient oriented x3 HEENT: Mouth: Normal oral and palatal mucosa present Eyes: EOM: EOMs intact bilaterally Neck: Neck: Yes supple Resp: Auscultation: diminished lung sounds Cardio: Rate: regular rate GI: Palpation (GI): Soft to palpation Neuro: General: patient oriented x3 Objective Data Labs CBC & Chem 7: 12/30/21 06:05 12/30/21 06:05 Labs: Laboratory Results - last 24 hr 12/30/21 12/30/21 06:05 06:05 WBC 13.9 H RBC 3.70 L Hgb 10.0 L Hct 31.2 L MCV 84.3 MCH 27.0 MCHC 32.1 RDW 14.7 Plt Count 210 MPV 9.3 L Immature Gran % (Auto) 0.6 H Neut % (Auto) 81.5 H Lymph % (Auto) 12.0 L [place] % (Auto) 5.2 Eos % (Auto) 0.5 Baso % (Auto) 0.2 Lymph # (Auto) 1.7 [place] # (Auto) 0.7 Eos # (Auto) 0.1 Baso # (Auto) 0.0 Abs Immat Gran (auto) 0.09 H Absolute Neuts (auto) 11.3 H Absolute Nucleated RBC 0.000 Nucleated RBC % (auto) 0.0 Sodium 143 Potassium 3.7 Chloride 102 Carbon Dioxide 28 Anion Gap 17 BUN 10 D Creatinine 0.68 Estim Creat Clear Calc 116.8 Estimated GFR > 60 Fasting Glucose 157 H Calcium 8.2 L Total Bilirubin 0.7 AST 28 ALT 40 H Alkaline Phosphatase 162 H Total Protein 5.5 L Albumin 3.2 L Microbiology Microbiology Results: Microbiology 12/26/21 21:59 Blood - Venous Blood Culture - Preliminary No growth after 48 hours. 12/26/21 21:59 Blood - Venous Blood Culture - Preliminary No growth after 48 hours. Procedures Date of Service Date of Service: 12/30/21 Assessment & Plan Assessment and plan (1) Acute renal failure: Status: Acute Assessment and Plan: FLOR due to obstructive uropathy(resolved) Metabolically acidotic(resolved) Remains hypertensive, but better Could reduce IV fluids to 75 ml/hiour Could increase Carvedilol 25 mg bid C/W Amlodipine 10 mg daily S/P Urology intervention Oncology seen patient Continue rest of current management Labs AM; Shall F/U closely Time Spent With Patient Time: Total time spent is greater than 50% in coordination of care (as documented) at patient's floor/unit and/or counseling patient: Progress Note: Quality Stroke Does the patient have a stroke diagnosis?: No
--- NOTE | 2021-12-30 11:54 | OP_ITS ---
SURGEON: Shun Bates MD INDICATIONS: Abnormal CAT scan suggesting mass in the sigmoid colon. PREOPERATIVE DIAGNOSIS: POSTOPERATIVE DIAGNOSIS: PROCEDURE PERFORMED: Colonoscopy to the terminal ileum with snare polypectomy. ESTIMATED BLOOD LOSS: COMPLICATIONS: ANESTHESIA: ASSISTANTS: SPECIMENS: MEDICATIONS: Monitored anesthesia care. DESCRIPTION OF PROCEDURE: History and physical performed. The risks and benefits of the procedure were explained to the patient, and informed consent was obtained. The patient was placed in the left lateral decubitus position. A digital rectal exam was performed and was found to be normal. The Olympus pediatric video colonoscope was introduced into the rectum and advanced to the cecum. The cecum was identified by transillumination, palpation, and identification of the ileocecal valve. Examination was performed. The scope was removed. She tolerated the procedure well, and was taken to recovery area in stable condition. The procedure was performed on 12/30/2021. FINDINGS: The terminal ileum was examined and appeared normal. In the cecum was an 8 mm sessile polyp, which was removed with a hot snare and recovered via suction. The quality of the prep was good. The sigmoid was slightly tortuous, but no mass was identified. The sigmoid was carefully examined with multiple pull through of the colonoscope. There was no sigmoid mass identified. Retroflexed examination showed moderately large internal hemorrhoids. IMPRESSION: Colon polyp. RECOMMENDATION: 1. Follow up the biopsy results. 2. Interventional Radiology consultation for CT-guided biopsy for further diagnosis. MD MARY JO Jo/CHRISTINAL / [id number]
--- NOTE | 2021-12-30 14:06 | HO.PM.IMPN ---
Subjective Subjective Date of Service: 12/30/21 Interval History: No acute issues overnight. Tolerated colonoscopy this a.m. without issue Review of Systems denies chest pain Denies shortness of breath Denies nausea vomiting diarrhea Denies fever chills Physical Exam Vital Signs: Vital Signs: Last Vital Signs Temp 98.9 F 12/30/21 11:15 Pulse 84 12/30/21 11:15 Resp 18 12/30/21 11:15 BP 133/61 12/30/21 11:15 Pulse Ox 93 12/30/21 11:15 O2 Del Method 12/30/21 11:15 O2 Flow Rate 2 12/28/21 19:32 BMI result Body Mass Index 49.4 Const: Other: no acute distress Resp: Other: clear to auscultation bilaterally no rales rhonchi or wheezes Cardio: Other: no S4; positive S1-S2; no S3 murmurs rubs or gallops GI: Other: soft nontender nondistended with normoactive bowel sounds Extrem: Other: no edema bilaterally Objective Data Active Medications Acetaminophen (Acetaminophen 325 Mg Tablet) 650 mg PO Q6H PRN PRN Reason: Pain, Mild (Pain Scale 1-3) Last Admin: 12/29/21 07:29 Dose: 650 mg Documented By: GIACOMO Acetaminophen (Acetaminophen 325 Mg Tablet) 650 mg PO ONCE PRN PRN Reason: Pain, Mild (Pain Scale 1-3) Amlodipine Besylate (Amlodipine Besylate 10 Mg Tablet) 10 mg PO DAILY [facility]; Protocol Last Admin: 12/30/21 09:26 Dose: 10 mg Documented By: CHAY Carvedilol (Carvedilol 12.5 Mg Tablet) 12.5 mg PO BID [facility]; Protocol Last Admin: 12/30/21 09:26 Dose: 12.5 mg Documented By: CHAY Fentanyl (Fentanyl Citrate/Pf 100 Mcg/2 Ml Vial) 25 mcg IVPUSH Q5M PRN; Protocol PRN Reason: Pain, Moderate (Pain Scale 4-6 Last Admin: 12/28/21 22:24 Dose: 25 mcg Documented By: CATARINO Fentanyl (Fentanyl Citrate/Pf 100 Mcg/2 Ml Vial) 25 mcg IVPUSH Q5M PRN; Protocol PRN Reason: Pain, Moderate (Pain Scale 4-6 Heparin Sodium (Porcine) (Heparin Sodium,Porcine 5,000 Unit/Ml Vial) 5,000 unit SUBCUT Q8H [facility] Last Admin: 12/30/21 09:27 Dose: Not Given Documented By: CHAY Non-Admin Reason: hematuria in hebert Hydralazine HCl (Hydralazine Hcl 10 Mg Tablet) 10 mg PO TID [facility]; Protocol Last Admin: 12/30/21 09:27 Dose: 10 mg Documented By: CHAY Piperacillin Sod/Tazobactam (Sod 2.25 gm/ Sodium Chloride) 50 mls @ 100 mls/hr IV Q8H [facility] Last Infusion: 12/30/21 13:13 Dose: 0 mls/hr Documented By: CHAY Lactated Ringer's (Lr) 1,000 mls @ 100 mls/hr IVCONT .Q10H [facility] Last Admin: 12/30/21 04:48 Dose: 100 mls/hr Documented By: GABRIEL Lorazepam (Lorazepam 1 Mg Tablet) 1 mg PO Q6H PRN PRN Reason: Anxiety Last Admin: 12/29/21 03:46 Dose: 1 mg Documented By: CATARINO Melatonin (Melatonin 3 Mg Tablet) 6 mg PO BEDTIME PRN PRN Reason: Insomnia Ondansetron HCl (Ondansetron Hcl 4 Mg/2 Ml Vial) 4 mg IVPUSH ONCE PRN PRN Reason: Nausea and Vomiting Ondansetron HCl (Ondansetron Hcl 4 Mg/2 Ml Vial) 4 mg IVPUSH ONCE PRN PRN Reason: Nausea and Vomiting Ondansetron HCl (Ondansetron Hcl 4 Mg/2 Ml Vial) 4 mg IVPUSH ONCE PRN PRN Reason: Nausea and Vomiting Oxycodone HCl (Oxycodone Hcl Immed Release 5 Mg Tablet) 5 mg PO Q4H PRN PRN Reason: Pain, Moderate (Pain Scale 4-6 Last Admin: 12/28/21 19:50 Dose: 5 mg Documented By: CATARINO Oxycodone HCl (Oxycodone Hcl Immed Release 5 Mg Tablet) 5 mg PO ONCE PRN PRN Reason: Pain, Severe (Pain Scale 7-10) Sodium Chloride (0.9 % Sodium Chloride Flush 3 Ml Syringe) 3 ml IVFLUSH QSHIFT [facility] Last Admin: 12/30/21 09:26 Dose: 3 ml Documented By: CHAY Labs CBC & Chem 7: 12/30/21 06:05 12/30/21 06:05 Labs: Laboratory Results - last 24 hr 12/30/21 12/30/21 06:05 06:05 MCV 84.3 MCH 27.0 MCHC 32.1 RDW 14.7 Plt Count 210 MPV 9.3 L Immature Gran % (Auto) 0.6 H Neut % (Auto) 81.5 H Lymph % (Auto) 12.0 L [place] % (Auto) 5.2 Eos % (Auto) 0.5 Baso % (Auto) 0.2 Lymph # (Auto) 1.7 [place] # (Auto) 0.7 Eos # (Auto) 0.1 Baso # (Auto) 0.0 Abs Immat Gran (auto) 0.09 H Absolute Neuts (auto) 11.3 H Absolute Nucleated RBC 0.000 Nucleated RBC % (auto) 0.0 Anion Gap 17 Estim Creat Clear Calc 116.8 Estimated GFR > 60 Fasting Glucose 157 H Calcium 8.2 L Total Bilirubin 0.7 AST 28 ALT 40 H Alkaline Phosphatase 162 H Total Protein 5.5 L Albumin 3.2 L Assessment and Plan (1) Hydroureteronephrosis: Status: Acute (2) Acute renal failure: Status: Acute (3) Colonic mass: Status: Acute (4) Hypertensive emergency: Status: Acute Plan 56-year-old with no significant past medical history presented to the hospital today with a chief complaint of difficulty urination.? CT abdomen showed moderate hydronephrosis/perinephric stranding/hydroureter/retroperitoneal lymphadenopathy/sigmoid colonic mass/bony metastasis.Poorly controlled HTN on arrival 1.Hydroureteonephrosis - Excellent response to stenting - Hebert as per Urology 2.FLOR - normalized after stent -follow renals/divalents 3.Colonic Mass -colonoscopy results noted. Will book CT-guided biopsy -Oncology consult 4.HTN - poorly controlled - increase amlodipine; add hydralazine... add Coreg - adjust as indicated Full Code heparin will require ongoing hospitalization for IV antibiotics and surgical intervention of hydro ureteral nephrosis Quality Stroke Does the patient have a stroke diagnosis?: No VTE Prior VTE?: No VTE Risk Level:: Medical - moderate - high VTE Device Contraindication: Treatment Not Indicated VTE Drug Contraindication: N/A - Med Ordered
[2021-12-30] MEDS: oxyCODONE HCl Immed Release 5 MG TABLET PO ×2 (15:15→20:50)
[2021-12-31] VITALS (7 sets, daily range): BP systolic 135–182; BP diastolic 62–84; PULSE 87–93; RESP 18–20; TEMP 36.5–37.5; O2SAT 92–93
[2021-12-31] MEDS: Piperacillin Sodium/Tazobactam 2.25 GM in 0.9 % Sodium Chloride 50 ML IV ×3 (04:04→19:16)
[2021-12-31] MEDS: Lactated Ringers 1,000 ML 100 ML IVCONT ×2 (05:02→13:02)
[2021-12-31 06:20] LABS: MANUAL DIFF FLAG NO
[2021-12-31 06:42] LABS: Basophils Percent Auto 0.3 % (0-2); Eosinophils Absolute Auto 0.2 X10*3/uL (0.0-0.4); Eosinophils Percent Auto 1.5 % (0-4); Hematocrit 31.9 % (37.0-47.0); Hemoglobin 10.1 g/dl (12.0-16.0); Imm Gran Abs Auto 0.09 X10*3/uL (0.00-0.03); Imm Gran Pct Auto 0.7 % (0.0-0.4); Lymphocytes Absolute Auto 2.4 X10*3/uL (1.2-4.9); Lymphocytes Percent Auto 18.4 % (20-40); Mean Corpuscular HGB Conc 31.7 g/dl (31.0-35.0); Mean Corpuscular Hemoglobin 27.1 pg (27.0-33.0); Mean Corpuscular Volume 85.5 fL (80.0-98.0); Mean Platelet Volume 9.5 fL (9.4-12.3); Monocytes Absolute Auto 0.7 X10*3/uL (0.1-1.2); Monocytes Percent Auto 5.2 % (2-11); Neutrophils Absolute Auto 9.5 x10*3/uL (2.0-8.3); Neutrophils Percent Auto 73.9 % (45-73); Platelet Count 215 X10*3/uL (160-400); Red Blood Count 3.73 X10*6/uL (4.20-5.50); Red Cell Distribution Width 14.7 % (11.0-16.0); White Blood Count 12.8 X10*3/uL (4.8-10.8)
[2021-12-31 06:54] LABS: INTERNATIONAL NORM RATIO 1.1 (0.9-1.1); Prothrombin Time 12.7 SEC (10.0-13.1)
[2021-12-31 07:01] LABS: Alanine Aminotransferase 37 U/L (0-31); Albumin Level 3.1 g/dL (3.5-5.0); Alkaline Phosphatase 158 U/L (39-117); Anion Gap 16 (12-20); Aspartate Amino Transferase 26 U/L (5-31); Bilirubin Total 0.9 mg/dL (0.0-1.0); Blood Urea Nitrogen 7 mg/dL (9-16); Calcium 8.2 mg/dL (8.4-10.2); Carbon Dioxide 28 mmol/L (22-29); Chloride 101 mmol/L (96-108); Creatinine Clr Calc Pharmacy 122.1; Estimated Glomerular Filt Rate > 60; Glucose Fasting 152 mg/dL (60-99); Potassium 3.6 mmol/L (3.3-5.1); Sodium 141 mmol/L (135-145); Total Protein 5.4 g/dL (6.5-8.0)
--- NOTE | 2021-12-31 08:37 | HO.POSTANES ---
Post Anesthesia Evaluation Post Anesthesia Evaluation Vital Signs: Vital Signs Temp Pulse Resp BP Pulse Ox O2 Del Method 12/31/21 07:22 93 Room Air 12/31/21 07:23 97.7 F 88 18 182/79 H 93 Room Air 12/31/21 03:15 98.2 F 90 18 140/84 H 92 Room Air 12/30/21 22:59 98.6 F 86 18 154/67 H 94 Room Air 12/30/21 20:58 101 H 166/69 H Anesthesia: Monitored Mental Status: Awake Pain Control: Satisfactory Nausea/Vomiting: None Hydration: Adequate Anesthesia-Related Issues: No Anes. Related Issues
[2021-12-31] MEDS: carvediloL 12.5 MG TABLET PO ×2 (10:31→19:16)
[2021-12-31] MEDS: hydrALAZINE HCl 10 MG TABLET PO ×3 (10:31→19:16)
[2021-12-31] MEDS: amLODIPine Besylate 10 MG TABLET PO (10:31)
--- NOTE | 2021-12-31 14:09 | P.PNIM_ITS ---
Subjective Subjective Date of Service: 12/31/21 Interval History: No acute issues overnight. Still with mild hematuria Review of Systems denies chest pain Denies shortness of breath Denies nausea vomiting diarrhea Denies fever chills Physical Exam Vital Signs: Vital Signs: Last Vital Signs Temp 99.2 F 12/31/21 11:17 Pulse 87 12/31/21 11:17 Resp 20 12/31/21 11:17 BP 135/63 12/31/21 11:17 Pulse Ox 92 12/31/21 11:17 O2 Del Method 12/31/21 11:17 O2 Flow Rate 2 12/28/21 19:32 BMI result Body Mass Index 49.4 Const: Other: no acute distress Resp: Other: clear to auscultation bilaterally no rales rhonchi or wheezes Cardio: Other: no S4; positive S1-S2; no S3 murmurs rubs or gallops GI: Other: soft nontender nondistended with normoactive bowel sounds Extrem: Other: no edema bilaterally Objective Data Active Medications Acetaminophen (Acetaminophen 325 Mg Tablet) 650 mg PO Q6H PRN PRN Reason: Pain, Mild (Pain Scale 1-3) Last Admin: 12/29/21 07:29 Dose: 650 mg Documented By: GIACOMO Acetaminophen (Acetaminophen 325 Mg Tablet) 650 mg PO ONCE PRN PRN Reason: Pain, Mild (Pain Scale 1-3) Amlodipine Besylate (Amlodipine Besylate 10 Mg Tablet) 10 mg PO DAILY [facility]; Protocol Last Admin: 12/31/21 10:31 Dose: 10 mg Documented By: CHAY Carvedilol (Carvedilol 12.5 Mg Tablet) 12.5 mg PO BID COUNT [facility]; Protocol Last Admin: 12/31/21 10:31 Dose: 12.5 mg Documented By: CHAY Fentanyl (Fentanyl Citrate/Pf 100 Mcg/2 Ml Vial) 25 mcg IVPUSH Q5M PRN; Protocol PRN Reason: Pain, Moderate (Pain Scale 4-6 Last Admin: 12/28/21 22:24 Dose: 25 mcg Documented By: CATARINO Fentanyl (Fentanyl Citrate/Pf 100 Mcg/2 Ml Vial) 25 mcg IVPUSH Q5M PRN; Protocol PRN Reason: Pain, Moderate (Pain Scale 4-6 Heparin Sodium (Porcine) (Heparin Sodium,Porcine 5,000 Unit/Ml Vial) 5,000 unit SUBCUT Q8H COUNT [facility] Last Admin: 12/31/21 08:40 Dose: Not Given Documented By: CHAY Non-Admin Reason: hematuria in hebert Hydralazine HCl (Hydralazine Hcl 10 Mg Tablet) 10 mg PO TID COUNT [facility]; Protocol Last Admin: 12/31/21 10:31 Dose: 10 mg Documented By: CHAY Piperacillin Sod/Tazobactam (Sod 2.25 gm/ Sodium Chloride) 50 mls @ 100 mls/hr IV Q8H COUNT [facility] Last Infusion: 12/31/21 13:02 Dose: 0 mls/hr Documented By: SHIRLEY Lorazepam (Lorazepam 1 Mg Tablet) 1 mg PO Q6H PRN PRN Reason: Anxiety Last Admin: 12/29/21 03:46 Dose: 1 mg Documented By: CATARINO Melatonin (Melatonin 3 Mg Tablet) 6 mg PO BEDTIME PRN PRN Reason: Insomnia Ondansetron HCl (Ondansetron Hcl 4 Mg/2 Ml Vial) 4 mg IVPUSH ONCE PRN PRN Reason: Nausea and Vomiting Ondansetron HCl (Ondansetron Hcl 4 Mg/2 Ml Vial) 4 mg IVPUSH ONCE PRN PRN Reason: Nausea and Vomiting Ondansetron HCl (Ondansetron Hcl 4 Mg/2 Ml Vial) 4 mg IVPUSH ONCE PRN PRN Reason: Nausea and Vomiting Oxycodone HCl (Oxycodone Hcl Immed Release 5 Mg Tablet) 5 mg PO Q4H PRN PRN Reason: Pain, Moderate (Pain Scale 4-6 Last Admin: 12/30/21 20:50 Dose: 5 mg Documented By: MIRTHA Oxycodone HCl (Oxycodone Hcl Immed Release 5 Mg Tablet) 5 mg PO ONCE PRN PRN Reason: Pain, Severe (Pain Scale 7-10) Sodium Chloride (0.9 % Sodium Chloride Flush 3 Ml Syringe) 3 ml IVFLUSH QSHIFT COUNT [facility]CLUD[facility] Last Admin: 12/31/21 08:40 Dose: Not Given Documented By: CHAY Non-Admin Reason: IV Running Labs CBC & Chem 7: 12/31/21 06:08 12/31/21 06:08 Labs: Laboratory Results - last 24 hr 0912/31/21 12/31/21 06:08 06:08 06:08 MCV 85.5 MCH 27.1 MCHC 31.7 RDW 14.7 Plt Count 215 MPV 9.5 Immature Gran % (Auto) 0.7 H Neut % (Auto) 73.9 H Lymph % (Auto) 18.4 L [place] % (Auto) 5.2 Eos % (Auto) 1.5 Baso % (Auto) 0.3 Lymph # (Auto) 2.4 [place] # (Auto) 0.7 Eos # (Auto) 0.2 Baso # (Auto) 0.0 Abs Immat Gran (auto) 0.09 H Absolute Neuts (auto) 9.5 H Absolute Nucleated RBC 0.000 Nucleated RBC % (auto) 0.0 PT 12.7 INR 1.1 Anion Gap 16 Estim Creat Clear Calc 122.1 Estimated GFR > 60 Fasting Glucose 152 H Calcium 8.2 L Total Bilirubin 0.9 AST 26 ALT 37 H Alkaline Phosphatase 158 H Total Protein 5.4 L Albumin 3.1 L Assessment and Plan (1) Hydroureteronephrosis: Status: Acute (2) Acute renal failure: Status: Acute (3) Colonic mass: Status: Acute (4) HTN (hypertension): Status: Acute Plan 56-year-old with no significant past medical history presented to the hospital today with a chief complaint of difficulty urination.? CT abdomen showed mo derate hydronephrosis/perinephric stranding/hydroureter/retroperitoneal lymphadenopathy/sigmoid colonic mass/bony metastasis.Poorly controlled HTN on arrival 1.Hydroureteonephrosis - continues with mild hematuria -continue Hebert until hematuria resolves -continue IV fluids 2.FLOR - normalized after stent -follow renals/divalents 3.Colonic Mass -CT guided BX 01/03 4.HTN - poorly controlled -continue amlodipine/hydralazine/ Coreg - adjust as indicated Full Code heparin will require ongoing hospitalization for IV antibiotics and surgical intervention of hydro ureteral nephrosis Quality Stroke Does the patient have a stroke diagnosis?: No VTE Prior VTE?: No VTE Risk Level:: Medical - moderate - high VTE Device Contraindication: Treatment Not Indicated VTE Drug Contraindication: N/A - Med Ordered
[2021-12-31] MEDS: 0.9 % Sodium Chloride Flush 3 ML SYRINGE IVFLUSH ×2 (15:23→19:23)
--- NOTE | 2021-12-31 16:41 | P.PNNP_ITS ---
Subjective Subjective Date of Service: 12/31/21 Interval history: No acute issues overnight. Still with mild hematuria Physical Exam Vital Signs: Vital Signs: Last Vital Signs Temp 98.0 F 12/31/21 15:52 Pulse 93 12/31/21 15:52 Resp 20 12/31/21 15:52 BP 169/73 H 12/31/21 15:52 Pulse Ox 93 12/31/21 15:52 O2 Del Method 12/31/21 15:52 O2 Flow Rate 2 12/28/21 19:32 BMI result Body Mass Index 49.4 Const: Other: no acute distress General: cooperative, healthy appearing, comfortable, no acute distress, alert, awake, Physically active and anxious Orientation/consciousness: patient oriented x3 Limitations: no limitations and No language barrier HEENT: Head: Yes normal to inspection and Yes atraumatic Ears: hearing grossly normal bilaterally General nose exam: Normal external nose present Face and sinus: Yes normal facial exam Mouth: Normal oral and palatal mucosa present and moist mucous membranes Eyes: General: appearance normal, both eyes and all related structures EOM: EOMs intact bilaterally Neck: Neck: Yes normal visual inspection, Yes full ROM, Yes no meningeal signs, Yes trachea midline and Yes supple Chest: Chest palpation & inspection: normal inspection of the chest Resp: Other: clear to auscultation bilaterally no rales rhonchi or wheezes Effort & Inspection: normal respiratory effort, able to speak in complete sentences and no respiratory distress Auscultation: clear to auscultation bilaterally and diminished lung sounds Cardio: Other: no S4; positive S1-S2; no S3 murmurs rubs or gallops Rate: regular rate Heart sounds: S1 normal heart sound present and S2 normal heart sound present GI: Other: soft nontender nondistended with normoactive bowel sounds Inspection: Yes normal to inspection Palpation (GI): Soft to palpation, nontender, no guarding and not rigid : General: Yes no CVA tenderness Back/Spine/Pelvis: Back: no CVA tenderness Cervical Spine: normal cervical lordosis Thoracic/Lumbar Spine: thoracic and lumbar spine normal to inspec tion Skin: General skin exam: no rashes or lesions noted Rashes: no rashes Wounds: no wounds Neuro: General: patient oriented x3, tone normal, moves all extremities and no meningeal signs Gait exam (Neuro): Normal gait present Extrem: Other: no edema bilaterally General: Yes normal to inspection and Yes capillary refill normal Objective Data Labs CBC & Chem 7: 12/31/21 06:08 12/31/21 06:08 Labs: Laboratory Results - last 24 hr 12/31/21 12/31/21 12/31/21 06:08 06:08 06:08 WBC 12.8 H RBC 3.73 L Hgb 10.1 L Hct 31.9 L MCV 85.5 MCH 27.1 MCHC 31.7 RDW 14.7 Plt Count 215 MPV 9.5 Immature Gran % (Auto) 0.7 H Neut % (Auto) 73.9 H Lymph % (Auto) 18.4 L [place] % (Auto) 5.2 Eos % (Auto) 1.5 Baso % (Auto) 0.3 Lymph # (Auto) 2.4 [place] # (Auto) 0.7 Eos # (Auto) 0.2 Baso # (Auto) 0.0 Abs Immat Gran (auto) 0.09 H Absolute Neuts (auto) 9.5 H Absolute Nucleated RBC 0.000 Nucleated RBC % (auto) 0.0 PT 12.7 INR 1.1 Sodium 141 Potassium 3.6 Chloride 101 Carbon Dioxide 28 Anion Gap 16 BUN 7 L Creatinine 0.65 Estim Creat Clear Calc 122.1 Estimated GFR > 60 Fasting Glucose 152 H Calcium 8.2 L Total Bilirubin 0.9 AST 26 ALT 37 H Alkaline Phosphatase 158 H Total Protein 5.4 L Albumin 3.1 L Microbiology Microbiology Results: Microbiology 12/26/21 21:59 Blood - Venous Blood Culture - Preliminary No growth after 48 hours. 12/26/21 21:59 Blood - Venous Blood Culture - Preliminary No growth after 48 hours. Procedures Date of Service Date of Service: 12/31/21 Assessment & Plan Assessment and plan (1) Hydroureteronephrosis: Status: Acute (2) Acute renal failure: Status: Acute (3) HTN (hypertension): Status: Acute Plan 56-year-old with FLOR due to obstruction, hydronephrosis and new finding of colon mass and mets. .FLOR - normalized after stent -follow renals/divale HTN- poorly controlled -continue amlodipine// Coreg -given kidney function now normal, can add ARB or MARISOL I Progress Note: Quality Stroke Does the patient have a stroke diagnosis?: No
--- NOTE | 2021-12-31 18:30 | P.PNHO-ONC_ITS ---
Medical Summary - Medical Summary Date of Service: 12/31/21 Interval History Interval history: Beatriz Hendricks is a 56 year old female admitted December 272021 with acute renal failure, hydronephrosis, possible sigmoid mass, retroperitoneal adenopathy, acidosis and BMI of 49.The colonoscopy shows only a tubular adenoma and no mass. Review of Systems - ENT Reports other - Respiratory Reports other [facility] Surgical History: Surgical History (Last Reviewed 12/30/21 @ 07:21 by Jaki Orellana RN) History of tonsillectomy [place] teeth extracted Social History: Social History (Last Updated 12/28/21 @ 16:58 by Iman León MD) Living Situation History: Household Members: Other Household Members Other:: roommate Housing: House Do you presently have visiting nurse or other home services: No Tobacco History: Patient Tobacco Use Status: Never used Tobacco Occupation Assessmet: service: No Current occupational status: employed Home Medications and Allergies Current Medications: Current Medications Acetaminophen (Acetaminophen 325 Mg Tablet) 650 mg PO Q6H PRN PRN Reason: Pain, Mild (Pain Scale 1-3) Last Admin: 12/29/21 07:29 Dose: 650 mg Acetaminophen (Acetaminophen 325 Mg Tablet) 650 mg PO ONCE PRN PRN Reason: Pain, Mild (Pain Scale 1-3) Amlodipine Besylate (Amlodipine Besylate 10 Mg Tablet) 10 mg PO DAILY [facility]; Protocol Last Admin: 12/31/21 10:31 Dose: 10 mg Carvedilol (Carvedilol 12.5 Mg Tablet) 12.5 mg PO BID [facility]; Protocol Last Admin: 12/31/21 10:31 Dose: 12.5 mg Fentanyl (Fentanyl Citrate/Pf 100 Mcg/2 Ml Vial) 25 mcg IVPUSH Q5M PRN; Protocol PRN Reason: Pain, Moderate (Pain Scale 4-6 Last Admin: 12/28/21 22:24 Dose: 25 mcg Fentanyl (Fentanyl Citrate/Pf 100 Mcg/2 Ml Vial) 25 mcg IVPUSH Q5M PRN; Protocol PRN Reason: Pain, Moderate (Pain Scale 4-6 Heparin Sodium (Porcine) (Heparin Sodium,Porcine 5,000 Unit/Ml Vial) 5,000 unit SUBCUT Q8H [facility] Last Admin: 12/31/21 16:47 Dose: Not Given Hydralazine HCl (Hydralazine Hcl 10 Mg Tablet) 10 mg PO TID [facility]; Protocol Last Admin: 12/31/21 15:23 Dose: 10 mg Piperacillin Sod/Tazobactam (Sod 2.25 gm/ Sodium Chloride) 50 mls @ 100 mls/hr IV Q8H [facility] Last Infusion: 12/31/21 13:02 Dose: Infused Lorazepam (Lorazepam 1 Mg Tablet) 1 mg PO Q6H PRN PRN Reason: Anxiety Last Admin: 12/29/21 03:46 Dose: 1 mg Melatonin (Melatonin 3 Mg Tablet) 6 mg PO BEDTIME PRN PRN Reason: Insomnia Ondansetron HCl (Ondansetron Hcl 4 Mg/2 Ml Vial) 4 mg IVPUSH ONCE PRN PRN Reason: Nausea and Vomiting Ondansetron HCl (Ondansetron Hcl 4 Mg/2 Ml Vial) 4 mg IVPUSH ONCE PRN PRN Reason: Nausea and Vomiting Ondansetron HCl (Ondansetron Hcl 4 Mg/2 Ml Vial) 4 mg IVPUSH ONCE PRN PRN Reason: Nausea and Vomiting Oxycodone HCl (Oxycodone Hcl Immed Release 5 Mg Tablet) 5 mg PO Q4H PRN PRN Reason: Pain, Moderate (Pain Scale 4-6 Last Admin: 12/30/21 20:50 Dose: 5 mg Oxycodone HCl (Oxycodone Hcl Immed Release 5 Mg Tablet) 5 mg PO ONCE PRN PRN Reason: Pain, Severe (Pain Scale 7-10) Sodium Chloride (0.9 % Sodium Chloride Flush 3 Ml Syringe) 3 ml IVFLUSH QSHIFT [facility] Last Admin: 12/31/21 15:23 Dose: 3 ml Home Medications Medication Instructions Recorded Confirmed Type No Known Home Meds 12/16/21 12/27/21 History Allergies Allergy/AdvReac Type Severity Reaction Status Date / Time neomycin Allergy Intermediate Rash Verified 12/16/21 12:30 paraben Allergy Rash Verified 12/30/21 07:28 Exam Vital signs: Vital Signs Temp 98.0 F 12/31/21 15:52 Pulse 93 12/31/21 15:52 Resp 20 12/31/21 15:52 BP 169/73 H 12/31/21 15:52 Pulse Ox 93 12/31/21 15:52 O2 Del Method 12/31/21 18:00 O2 Flow Rate 2 12/28/21 19:32 Intake & Output 12/30/21 12/31/21 12/31/21 18:59 06:59 18:59 Intake Total 1650 / 2990.000 1340.000 / 2990.000 1136.667 / 1136.667 Output Total 700 / 1670 970 / 1670 800 / 800 Balance 950 / 1320.000 370.000 / 1320.000 336.667 / 336.667 Urine Output (Average ml/kg/hr) 0.46 0.64 0.53 Intake: Intake, Oral Amount 600 / 840 240 / 840 Intake, IV Amount 1050 / 2150.000 1100.000 / 2150.000 1136.667 / 1136.667 Piperacillin Sodium/Tazobactam 50 / 150 100 / 150 50 / 50 2.25 gm In 0.9 % Sodium Chloride 50 ml @ 100 mls/hr IV Q8H [facility] Rx#:[id number] Lactated Ringers 1,000 ml @ 100 1000 / 2000.000 1000.000 / 2000.000 1086.667 / 1086.667 mls/hr IVCONT .Q10H [facility] Rx#: [id number] Output: Output, Urine Amount (Catheter) 700 / 1670 970 / 1670 800 / 800 Urethral 700 / 1670 970 / 1670 800 / 800 Other: NPO Yes Yes Lunch % Eaten 100% Urine hebert Urine Color [place] Tinged Bloody Red Tinged Weight 126.552 kg BMI result Body Mass Index 49.4 - Constitutional Present: no acute distress - Routine HEENT Exam Head: Present: atraumatic - Routine Neck Exam Present: full ROM - Routine Respiratory Exam Present: decreased breath sounds - Routine Cardiovascular Exam Cardiovascular: Present: RRR - Routine Abdominal Exam Present: diminished bowel sounds - Routine Skin Exam Present: intact - Routine Neurological Exam Present: alert, oriented X3 Data - Labs CBC & Chem 7: 12/31/21 06:08 12/31/21 06:08 Labs: 12/26/21 18:17 LORazepam [Ativan] 0.5 mg PO ONCE ONE 12/26/21 18:30 0.9 % Sodium Chloride [Ns] 1,000 ml IV 999 mls/hr 12/26/21 19:49 Basic Metabolic Panel Stat Complete Blood Count Auto Diff Stat Lipase Stat Liver Panel Stat Magnesium Stat 12/26/21 20:12 Add Laboratory Test Stat cefTRIAXone sodium [Rocephin] 1 gm 0.9 % Sodium Chloride [Ns] 50 ml IV ONCE 12/26/21 20:13 CT abdomen pelvis wo IV con Stat 12/26/21 20:19 Labetalol HCL [Normodyne] 10 mg IVPUSH ONCE ONE 12/26/21 20:30 0.9 % Sodium Chloride [Ns] 1,000 ml IV 999 mls/hr 12/26/21 20:35 ECG 12 lead EKG Stat EKG Documentation DIRECTED 12/26/21 20:47 cefTRIAXone sodium [Rocephin] 1 gm .ROUTE .STK-MED ONE 12/26/21 21:00 Labetalol HCL [Normodyne] 10 mg IVPUSH ONCE ONE 12/26/21 21:21 Sodium Bicarbonate 8.4% 50 meq IVPUSH ONCE ONE 12/26/21 21:52 0.9 % Sodium Chloride [Ns] 1,000 ml IV 999 mls/hr 12/26/21 21:59 COVID-19 ID NOW ([place]) Stat Lactic Acid Stat Prothrombin Time INR Stat 12/26/21 22:00 Basic Metabolic Panel Stat 12/26/21 22:30 Dextrose 5 % [D5w] 900 ml Sodium Bicarbonate 8.4% 100 meq IV 100 mls/hr 12/26/21 22:32 Dextrose 5 % [D5w] 850 ml Sodium Bicarbonate 8.4% 150 meq IV 100 mls/hr 12/26/21 22:56 Low Sodium Diet 12/26/21 23:00 0.9 % Sodium Chloride [Ns] 1,000 ml IVCONT 100 mls/hr amLODIPine Besylate [Norvasc] 5 mg PO ONCE ONE 12/26/21 23:42 Labetalol HCL [Normodyne] 20 mg IVPUSH ONCE ONE 12/27/21 03:21 Labetalol HCL [Normodyne] 10 mg IVPUSH Q4H PRN 12/27/21 03:45 Labetalol HCL [Normodyne] 10 mg IVPUSH Q4H PRN 12/27/21 04:55 AFP [Alpha Fetoprotein] Routine Basic Metabolic Panel AM CEA [Carcinoembryonic Antigen] Routine Complete Blood Count Auto Diff AM 12/27/21 10:08 hydrALAZINE HCl [Apresoline] 5 mg IVPUSH ONCE ONE 12/27/21 12:23 Piperacillin Sodium/Tazobactam [Zosyn] 2.25 gm IV .STK-MED ONE 12/27/21 13:17 LORazepam [Ativan] 1 mg PO ONCE ONE 12/27/21 21:04 Piperacillin Sodium/Tazobactam [Zosyn] 2.25 gm IV .STK-MED ONE 12/28/21 00:01 NPO Diet 12/28/21 04:06 Piperacillin Sodium/Tazobactam [Zosyn] 2.25 gm IV .STK-MED ONE 12/28/21 05:25 CBC W/AUTO DIFF [Complete Blood Count Auto Diff] DAILY@0600 CMP [Comprehensive [place]. Panel Fast] DAILY@0600 PT with INR [Prothrombin Time INR] DAILY@0600 12/28/21 10:26 Mineral OiL enema [Fleets Mineral Oil Enema] 133 ml NM ONCE ONE 12/28/21 11:35 Piperacillin Sodium/Tazobactam [Zosyn] 2.25 gm IV .STK-MED ONE 12/28/21 16:34 Lidocaine HCl 2% [Xylocaine 2 %] 2 ml .ROUTE .STK-MED ONE Midazolam HCl/PF [Versed] 2 mg .ROUTE .STK-MED ONE fentaNYL citrate/PF [Sublimaze] 100 mcg .ROUTE .STK-MED ONE propofoL [Diprivan] 200 mg IVPUSH .STK-MED ONE 12/28/21 16:45 FL guidance in OR Routine 12/28/21 17:32 Vital Signs Q1H Vital Signs Q5MIN 12/28/21 17:35 Sevoflurane [Ultane] 250 ml INHALE .STK-MED ONE 12/28/21 18:13 propofoL [Diprivan] 200 mg IVPUSH .STK-MED ONE 12/28/21 18:18 Regular Diet 12/28/21 18:19 Transfer Order Routine 12/28/21 18:28 Midazolam HCl/PF [Versed] 2 mg .ROUTE .STK-MED ONE 12/28/21 18:32 Vital Signs Q1H Vital Signs Q5MIN Midazolam HCl/PF [Versed] 2 mg IVPUSH ONCE ONE 12/28/21 18:43 fentaNYL citrate/PF [Sublimaze] 100 mcg .ROUTE .STK-MED ONE 12/28/21 19:42 Piperacillin Sodium/Tazobactam [Zosyn] 2.25 gm IV .STK-MED ONE 12/28/21 20:00 Dextrose 5 % [D5w] 900 ml Sodium Bicarbonate 8.4% 100 meq IV 50 mls/hr 12/28/21 23:02 Oxybutynin Chloride ER [Ditropan XL] 5 mg PO ONCE ONE 12/28/21 23:06 Phenazopyridine HCL [Pyridium] 100 mg PO ONCE ONE 12/28/21 23:57 BMP [Basic Metabolic Panel] Stat Magnesium Stat 12/29/21 03:34 Piperacillin Sodium/Tazobactam [Zosyn] 2.25 gm IV .STK-MED ONE 12/29/21 07:29 CBC W/AUTO DIFF [Complete Blood Count Auto Diff] DAILY@0600 CMP [Comprehensive [place]. Panel Fast] DAILY@0612/29/21 11:51 Piperacillin Sodium/Tazobactam [Zosyn] 2.25 gm IV .STK-MED ONE 12/29/21 14:00 Lactated Ringers [Lr] 1,000 ml IVCONT 100 mls/hr 12/29/21 15:40 Clear Liquid Diet 12/29/21 17:15 PEG 3350/Na Sulf,Bicarb,Cl/KCL [Gavilyte-C Solution] 4,000 ml PO ONCE ONE 12/29/21 20:45 Piperacillin Sodium/Tazobactam [Zosyn] 2.25 gm IV .STK-MED ONE 12/30/21 00:01 NPO Diet 12/30/21 03:49 Piperacillin Sodium/Tazobactam [Zosyn] 2.25 gm IV .STK-MED ONE 12/30/21 06:05 CBC W/AUTO DIFF [Complete Blood Count Auto Diff] DAILY@0600 CMP [Comprehensive [place]. Panel Fast] DAILY@0600 12/30/21 07:21 Midazolam HCl/PF [Versed] 2 mg .ROUTE .STK-MED ONE 12/30/21 07:22 Vital Signs Q1H Vital Signs Q5MIN 12/30/21 07:37 Lidocaine HCl 1 % MPF [Xylocaine 1 % MPF] 2 ml .ROUTE .STK-MED ONE 12/30/21 07:38 propofoL [Diprivan] 200 mg IVPUSH .STK-MED ONE 12/30/21 07:50 Surgical [PTH] Routine 12/30/21 08:37 Regular Diet Transfer Order Routine 12/30/21 12:07 Piperacillin Sodium/Tazobactam [Zosyn] 2.25 gm IV .STK-MED ONE 12/30/21 20:44 Piperacillin Sodium/Tazobactam [Zosyn] 2.25 gm IV .STK-MED ONE 12/31/21 00:01 NPO Diet 12/31/21 03:43 Piperacillin Sodium/Tazobactam [Zosyn] 2.25 gm IV .STK-MED ONE 12/31/21 06:08 CBC W/AUTO DIFF [Complete Blood Count Auto Diff] DAILY@0600 CMP [Comprehensive [place]. Panel Fast] DAILY@0600 PT with INR [Prothrombin Time INR] DAILY@0600 12/31/21 11:49 Piperacillin Sodium/Tazobactam [Zosyn] 2.25 gm IV .STK-MED ONE Laboratory Last Values WBC 12.8 X10*3/uL (4.8-10.8) H 12/31/21 06:08 RBC 3.73 X10*6/uL (4.20-5.50) L 12/31/21 06:08 Hgb 10.1 g/dl (12.0-16.0) L 12/31/21 06:08 Hct 31.9 % (37.0-47.0) L 12/31/21 06:08 MCV 85.5 fL (80.0-98.0) 12/31/21 06:08 MCH 27.1 pg (27.0-33.0) 12/31/21 06:08 MCHC 31.7 g/dl (31.0-35.0) 12/31/21 06:08 RDW 14.7 % (11.0-16.0) 12/31/21 06:08 Plt Count 215 X10*3/uL (160-400) 12/31/21 06:08 MPV 9.5 fL (9.4-12.3) 12/31/21 06:08 Immature Gran % (Auto) 0.7 % (0.0-0.4) H 12/31/21 06:08 Neut % (Auto) 73.9 % (45-73) H 12/31/21 06:08 Lymph % (Auto) 18.4 % (20-40) L 12/31/21 06:08 [place] % (Auto) 5.2 % (2-11) 12/31/21 06:08 Eos % (Auto) 1.5 % (0-4) 12/31/21 06:08 Baso % (Auto) 0.3 % (0-2) 12/31/21 06:08 Lymph # (Auto) 2.4 X10*3/uL (1.2-4.9) 12/31/21 06:08 [place] # (Auto) 0.7 X10*3/uL (0.1-1.2) 12/31/21 06:08 Eos # (Auto) 0.2 X10*3/uL (0.0-0.4) 12/31/21 06:08 Baso # (Auto) 0.0 X10*3/uL (0.0-0.2) 12/31/21 06:08 Abs Immat Gran (auto) 0.09 X10*3/uL (0.00-0.03) H 12/31/21 06:08 Absolute Neuts (auto) 9.5 x10*3/uL (2.0-8.3) H 12/31/21 06:08 Absolute Nucleated RBC 0.000 X10*3/uL (0.0-0.012) 12/31/21 06:08 Nucleated RBC % (auto) 0.0 /100WBC (0.0-0.2) 12/31/21 06:08 PT 12.7 SEC (10.0-13.1) 12/31/21 06:08 INR 1.1 (0.9-1.1) 12/31/21 06:08 Sodium 141 mmol/L (135-145) 12/31/21 06:08 Potassium 3.6 mmol/L (3.3-5.1) 12/31/21 06:08 Chloride 101 mmol/L (96-108) 12/31/21 06:08 Carbon Dioxide 28 mmol/L (22-29) 12/31/21 06:08 Anion Gap 16 (12-20) 12/31/21 06:08 BUN 7 mg/dL (9-16) L 12/31/21 06:08 Creatinine 0.65 mg/dL (0.5-1.4) 12/31/21 06:08 Estim Creat Clear Calc 122.1 12/31/21 06:08 Estimated GFR > 60 12/31/21 06:08 Random Glucose 219 mg/dL (60-115) H 12/28/21 23:57 Fasting Glucose 152 mg/dL (60-99) H 12/31/21 06:08 Lactic Acid 0.7 mmol/L (0.5-2.0) 12/26/21 21:59 Calcium 8.2 mg/dL (8.4-10.2) L 12/31/21 06:08 Magnesium 1.6 mg/dL (1.6-2.6) 12/28/21 23:57 Total Bilirubin 0.9 mg/dL (0.0-1.0) 12/31/21 06:08 Direct Bilirubin 0.3 mg/dL (0.0-0.5) 12/26/21 19:49 AST 26 U/L (5-31) 12/31/21 06:08 ALT 37 U/L (0-31) H 12/31/21 06:08 Alkaline Phosphatase 158 U/L (39-117) H 12/31/21 06:08 Total Protein 5.4 g/dL (6.5-8.0) L 12/31/21 06:08 Albumin 3.1 g/dL (3.5-5.0) L 12/31/21 06:08 Lipase 46 U/L (8-78) 12/26/21 19:49 Alpha Fetoprotein 4.7 ng/mL 12/27/21 04:55 Carcinoembryonic Ag 2.10 ng/mL 12/27/21 04:55 Urine Color Cancelled 12/26/21 13:51 Urine Appearance Cancelled 12/26/21 13:51 Urine pH Cancelled 12/26/21 13:51 Ur Specific [place] Cancelled 12/26/21 13:51 Urine Protein Cancelled 12/26/21 13:51 Urine Glucose (UA) Cancelled 12/26/21 13:51 Urine Ketones Cancelled 12/26/21 13:51 Urine Blood Cancelled 12/26/21 13:51 Urine Nitrite Cancelled 12/26/21 13:51 Ur Leukocyte Esterase Cancelled 12/26/21 13:51 COVID-19 (PRADEEP) Negative (Negative) 12/26/21 21:59 COVID-19 Clin Com See Note 12/26/21 21:59 - Imaging Radiologist's impression: ITS Impressions Abdomen/Pelvis CT 12/26/21 22:49 IMPRESSION: * Probable sigmoid colonic mass. 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 Scattered peritoneal implants most notably in the bilateral lower quadrants. One of the peritoneal implants or pathologic lymph nodes would be fairly easy to sample by CT-guided biopsy. * [id number] hydronephrosis and perinephric stranding as well as hydroureter leading to the bladder, without clear mechanical obstructive etiology evident. It is possible that peritoneal implants in the region of the ureterovesical junctions could be the etiology. * Heterogeneously attenuating hepatic parenchyma concerning for infiltrative metastatic disease and/or hepatic steatosis. * Possible osseous metastases, particularly within the S1 vertebral body with accompanying fracturing of the superior endplate. Guidance Fluoroscopy 12/28/21 18:10 IMPRESSION: Fluoroscopic guidance for bilateral pyelogram and ureteral stent placement. Please refer to procedural report for further information. Assessment and Plan Patient Active problem list reviewed?: Yes (1) Colonic mass Status: Acute Assessment and plan: Once she is metabolically stable recommend we obtain tissue with FNA or other means. I will review the CT to better understant cause of bilateral hydronephrosis and peritoneal imiplants. - Time Spent With Patient Time Spent with Patient (in minutes): 20
[2021-12-31] MEDS: oxyCODONE HCl Immed Release 5 MG TABLET PO (19:16)
[2022-01-01] MEDS: Piperacillin Sodium/Tazobactam 2.25 GM in 0.9 % Sodium Chloride 50 ML IV ×2 (03:12→12:36)
[2022-01-01 03:22] VITALS: BP 164/67; PULSE 86; RESP 16; TEMP 36.6; O2SAT 93
[2022-01-01 07:08] LABS: MANUAL DIFF FLAG NO
[2022-01-01 07:15] LABS: Basophils Percent Auto 0.3 % (0-2); Eosinophils Absolute Auto 0.2 X10*3/uL (0.0-0.4); Eosinophils Percent Auto 1.3 % (0-4); Hematocrit 32.1 % (37.0-47.0); Hemoglobin 10.1 g/dl (12.0-16.0); Imm Gran Abs Auto 0.11 X10*3/uL (0.00-0.03); Imm Gran Pct Auto 0.8 % (0.0-0.4); Lymphocytes Absolute Auto 1.8 X10*3/uL (1.2-4.9); Lymphocytes Percent Auto 12.9 % (20-40); Mean Corpuscular HGB Conc 31.5 g/dl (31.0-35.0); Mean Corpuscular Hemoglobin 26.8 pg (27.0-33.0); Mean Corpuscular Volume 85.1 fL (80.0-98.0); Mean Platelet Volume 9.6 fL (9.4-12.3); Monocytes Absolute Auto 0.7 X10*3/uL (0.1-1.2); Monocytes Percent Auto 4.8 % (2-11); Neutrophils Absolute Auto 11.4 x10*3/uL (2.0-8.3); Neutrophils Percent Auto 79.9 % (45-73); Platelet Count 231 X10*3/uL (160-400); Red Blood Count 3.77 X10*6/uL (4.20-5.50); Red Cell Distribution Width 14.8 % (11.0-16.0); White Blood Count 14.3 X10*3/uL (4.8-10.8)
[2022-01-01 07:51] LABS: Alanine Aminotransferase 44 U/L (0-31); Albumin Level 3.2 g/dL (3.5-5.0); Alkaline Phosphatase 175 U/L (39-117); Anion Gap 17 (12-20); Aspartate Amino Transferase 32 U/L (5-31); Bilirubin Total 0.8 mg/dL (0.0-1.0); Blood Urea Nitrogen 7 mg/dL (9-16); Calcium 8.3 mg/dL (8.4-10.2); Carbon Dioxide 27 mmol/L (22-29); Chloride 99 mmol/L (96-108); Creatinine Clr Calc Pharmacy 124.1; Estimated Glomerular Filt Rate > 60; Glucose Fasting 164 mg/dL (60-99); Potassium 3.5 mmol/L (3.3-5.1); Sodium 139 mmol/L (135-145); Total Protein 5.6 g/dL (6.5-8.0)
[2022-01-01 08:00] VITALS: BP 175/67; PULSE 82; RESP 18; TEMP 36.1; O2SAT 91
[2022-01-01] MEDS: carvediloL 12.5 MG TABLET 25 MG PO ×2 (09:11→21:03)
[2022-01-01] MEDS: amLODIPine Besylate 10 MG TABLET PO (09:11)
[2022-01-01] MEDS: 0.9 % Sodium Chloride Flush 3 ML SYRINGE IVFLUSH ×2 (09:16→16:33)
[2022-01-01] MEDS: hydrALAZINE HCl 25 MG TABLET PO ×3 (11:08→21:03)
[2022-01-01 12:00] VITALS: BP 131/60; PULSE 87; RESP 20; TEMP 36.7; O2SAT 92
--- NOTE | 2022-01-01 12:38 | P.PNIM_ITS ---
Subjective Subjective Date of Service: 01/01/22 Interval History: Hematuria clearing up No abd pain No N/V Review of Systems Review of Systems: Yes all other systems are reviewed and are negative Physical Exam Vital Signs: Vital Signs: Last Vital Signs Temp 98.0 F 01/01/22 12:00 Pulse 87 01/01/22 12:00 Resp 20 01/01/22 12:00 BP 131/60 01/01/22 12:00 Pulse Ox 92 01/01/22 12:00 O2 Del Method 01/01/22 12:00 O2 Flow Rate 2 12/28/21 19:32 BMI result Body Mass Index 49.4 Gen: in no acute distress HEENT: sclera anicteric, moist mucus membranes Neck: supple Lungs: clear to auscultation bilaterally Heart: regular rate and rhythm, no murmurs Abd: soft, non-tender, non-distended, obese Ext: no edema Skin: warm/well-perfused Neuro: alert and oriented x3, no focal findings Psych: appropriate affect Objective Data Active Medications Acetaminophen (Acetaminophen 325 Mg Tablet) 650 mg PO Q6H PRN PRN Reason: Pain, Mild (Pain Scale 1-3) Last Admin: 12/29/21 07:29 Dose: 650 mg Documented By: GIACOMO Acetaminophen (Acetaminophen 325 Mg Tablet) 650 mg PO ONCE PRN PRN Reason: Pain, Mild (Pain Scale 1-3) Amlodipine Besylate (Amlodipine Besylate 10 Mg Tablet) 10 mg PO DAILY REPLACED BY [facility]; Protocol Last Admin: 01/01/22 09:11 Dose: 10 mg Documented By: JORGE Carvedilol (Carvedilol 12.5 Mg Tablet) 25 mg PO BID REPLACED BY [facility]; Protocol Last Admin: 01/01/22 09:11 Dose: 25 mg Documented By: JORGE Fentanyl (Fentanyl Citrate/Pf 100 Mcg/2 Ml Vial) 25 mcg IVPUSH Q5M PRN; Protocol PRN Reason: Pain, Moderate (Pain Scale 4-6 Last Admin: 12/28/21 22:24 Dose: 25 mcg Documented By: CATARINO Fentanyl (Fentanyl Citrate/Pf 100 Mcg/2 Ml Vial) 25 mcg IVPUSH Q5M PRN; Protocol PRN Reason: Pain, Moderate (Pain Scale 4-6 Heparin Sodium (Porcine) (Heparin Sodium,Porcine 5,000 Unit/Ml Vial) 5,000 unit SUBCUT Q8H REPLACED BY [facility] Last Admin: 01/01/22 09:13 Dose: Not Given Documented By: JORGE Non-Admin Reason: Physician Held Med Hydralazine HCl (Hydralazine Hcl 25 Mg Tablet) 25 mg PO TID REPLACED BY [facility]; Protocol Last Admin: 01/01/22 11:08 Dose: 25 mg Documented By: JORGE Piperacillin Sod/Tazobactam (Sod 2.25 gm/ Sodium Chloride) 50 mls @ 100 mls/hr IV Q8H REPLACED BY [facility] Last Admin: 01/01/22 12:36 Dose: 100 mls/hr Documented By: ASHLEE Lorazepam (Lorazepam 1 Mg Tablet) 1 mg PO Q6H PRN PRN Reason: Anxiety Last Admin: 12/29/21 03:46 Dose: 1 mg Documented By: CATARINO Melatonin (Melatonin 3 Mg Tablet) 6 mg PO BEDTIME PRN PRN Reason: Insomnia Ondansetron HCl (Ondansetron Hcl 4 Mg/2 Ml Vial) 4 mg IVPUSH ONCE PRN PRN Reason: Nausea and Vomiting Ondansetron HCl (Ondansetron Hcl 4 Mg/2 Ml Vial) 4 mg IVPUSH ONCE PRN PRN Reason: Nausea and Vomiting Ondansetron HCl (Ondansetron Hcl 4 Mg/2 Ml Vial) 4 mg IVPUSH ONCE PRN PRN Reason: Nausea and Vomiting Oxycodone HCl (Oxycodone Hcl Immed Release 5 Mg Tablet) 5 mg PO Q4H PRN PRN Reason: Pain, Moderate (Pain Scale 4-6 Last Admin: 12/31/21 19:16 Dose: 5 mg Documented By: CATARINO Oxycodone HCl (Oxycodone Hcl Immed Release 5 Mg Tablet) 5 mg PO ONCE PRN PRN Reason: Pain, Severe (Pain Scale 7-10) Sodium Chloride (0.9 % Sodium Chloride Flush 3 Ml Syringe) 3 ml IVFLUSH QSHIFT REPLACED BY [facility] Last Admin: 01/01/22 09:16 Dose: 3 ml Documented By: JORGE Labs CBC & Chem 7: 01/01/22 06:07 01/01/22 06:07 Labs: Laboratory Results - last 24 hr 01/01/22 01/01/22 06:07 06:07 MCV 85.1 MCH 26.8 L MCHC 31.5 RDW 14.8 Plt Count 231 MPV 9.6 Immature Gran % (Auto) 0.8 H Neut % (Auto) 79.9 H Lymph % (Auto) 12.9 L [place] % (Auto) 4.8 Eos % (Auto) 1.3 Baso % (Auto) 0.3 Lymph # (Auto) 1.8 [place] # (Auto) 0.7 Eos # (Auto) 0.2 Baso # (Auto) 0.0 Abs Immat Gran (auto) 0.11 H Absolute Neuts (auto) 11.4 H Absolute Nucleated RBC 0.000 Nucleated RBC % (auto) 0.0 Anion Gap 17 Estim Creat Clear Calc 124.1 Estimated GFR > 60 Fasting Glucose 164 H Calcium 8.3 L Total Bilirubin 0.8 AST 32 H ALT 44 H Alkaline Phosphatase 175 H Total Protein 5.6 L Albumin 3.2 L Microbiology Microbiology Results: Microbiology 12/26/21 21:59 Blood Culture - Final Blood - Venous No growth after 5 days. 12/26/21 21:59 Blood Culture - Final Blood - Venous No growth after 5 days. Assessment and Plan (1) Hydroureteronephrosis: Status: Acute (2) Acute renal failure: Status: Acute (3) Colonic mass: Status: Acute (4) HTN (hypertension): Status: Acute Plan hospital d#7 for 56yo F with no chronic conditions presenting with difficulty urinating, found to have FLOR (SCr 11.49) and hydronephrosis likely due to luis toneal implants, iliac and retroperitoneal lymphadenopathy, sigmoid mass, possible hepatic + osseous metastases # suspected metastatic CA - colonoscopy on 12/30 showed only a tubular adenoma in the cecum - CT-guided biopsy of LN or peritoneal implant on 01/03, Heme/Onc consulted # FLOR due to postrenal obstruction # hydroureteronephrosis - resolved s/p bilateral ureteral stents on 12/28 # pathologic fracture of S1 - to consider IV bisphosphonate or denosumab, to discuss with Heme/Onc # HTN - increase carvedilol + hydralazine, continue amlodipine # VTE ppx: SCDs In my clinical judgment, the patient requires continued hospitalization for the following reasons: biopsy Quality Stroke Does the patient have a stroke diagnosis?: No VTE Prior VTE?: No VTE Risk Level:: Medical - moderate - high VTE Device Contraindication: Treatment Not Indicated VTE Drug Contraindication: N/A - Med Ordered
[2022-01-01 16:00] VITALS: BP 151/68; PULSE 90; RESP 18; TEMP 37.1; O2SAT 94
[2022-01-01 19:34] VITALS: BP 157/70; PULSE 92; RESP 19; TEMP 37.1; O2SAT 94
[2022-01-01 23:23] VITALS: BP 121/67; PULSE 82; RESP 18; TEMP 37.1; O2SAT 94
[2022-01-02] MEDS: 0.9 % Sodium Chloride Flush 3 ML SYRINGE IVFLUSH ×4 (00:07→23:55)
[2022-01-02 03:35] VITALS: BP 146/67; PULSE 84; RESP 20; TEMP 36.8; O2SAT 94
[2022-01-02 06:22] LABS: MANUAL DIFF FLAG NO
[2022-01-02 06:28] LABS: Basophils Percent Auto 0.2 % (0-2); Eosinophils Absolute Auto 0.3 X10*3/uL (0.0-0.4); Eosinophils Percent Auto 2.1 % (0-4); Hematocrit 31.6 % (37.0-47.0); Hemoglobin 10.1 g/dl (12.0-16.0); Imm Gran Abs Auto 0.09 X10*3/uL (0.00-0.03); Imm Gran Pct Auto 0.6 % (0.0-0.4); Lymphocytes Absolute Auto 2.8 X10*3/uL (1.2-4.9); Lymphocytes Percent Auto 19.6 % (20-40); Mean Corpuscular Hemoglobin 27.4 pg (27.0-33.0); Mean Corpuscular Volume 85.6 fL (80.0-98.0); Mean Platelet Volume 9.5 fL (9.4-12.3); Monocytes Absolute Auto 0.8 X10*3/uL (0.1-1.2); Monocytes Percent Auto 5.3 % (2-11); Neutrophils Absolute Auto 10.2 x10*3/uL (2.0-8.3); Neutrophils Percent Auto 72.2 % (45-73); Platelet Count 258 X10*3/uL (160-400); Red Blood Count 3.69 X10*6/uL (4.20-5.50); White Blood Count 14.1 X10*3/uL (4.8-10.8)
[2022-01-02 07:02] LABS: Alanine Aminotransferase 60 U/L (0-31); Albumin Level 3.3 g/dL (3.5-5.0); Alkaline Phosphatase 201 U/L (39-117); Anion Gap 17 (12-20); Aspartate Amino Transferase 42 U/L (5-31); Bilirubin Total 0.8 mg/dL (0.0-1.0); Blood Urea Nitrogen 8 mg/dL (9-16); Calcium 8.4 mg/dL (8.4-10.2); Carbon Dioxide 26 mmol/L (22-29); Chloride 102 mmol/L (96-108); Creatinine Clr Calc Pharmacy 120.4; Estimated Glomerular Filt Rate > 60; Glucose Fasting 144 mg/dL (60-99); Potassium 3.5 mmol/L (3.3-5.1); Sodium 141 mmol/L (135-145); Total Protein 5.7 g/dL (6.5-8.0)
[2022-01-02 07:15] VITALS: BP 151/70; PULSE 86; RESP 20; TEMP 36.4; O2SAT 95
[2022-01-02] MEDS: carvediloL 12.5 MG TABLET 25 MG PO ×2 (09:04→20:08)
[2022-01-02] MEDS: hydrALAZINE HCl 25 MG TABLET PO ×3 (09:04→20:09)
[2022-01-02] MEDS: amLODIPine Besylate 10 MG TABLET PO (09:04)
[2022-01-02 11:29] VITALS: BP 128/59; PULSE 74; RESP 20; TEMP 36.8; O2SAT 95
--- NOTE | 2022-01-02 12:01 | P.PNIM_ITS ---
Subjective Subjective Date of Service: 01/02/22 Interval History: No abd pain Hematuria largely cleared; Lopez leaking around balloon Review of Systems Review of Systems: Yes all other systems are reviewed and are negative Physical Exam Vital Signs: Vital Signs: Last Vital Signs Temp 98.3 F 01/02/22 11:29 Pulse 74 01/02/22 11:29 Resp 20 01/02/22 11:29 BP 128/59 L 01/02/22 11:29 Pulse Ox 95 01/02/22 11:29 O2 Del Method 01/02/22 11:29 O2 Flow Rate 2 12/28/21 19:32 BMI result Body Mass Index 49.4 Gen: in no acute distress HEENT: sclera anicteric, moist mucus membranes Neck: supple Lungs: clear to auscultation bilaterally Heart: regular rate and rhythm, no murmurs Abd: soft, non-tender, non-distended, obese Ext: no edema Skin: warm/well-perfused Neuro: alert and oriented x3, no focal findings Psych: appropriate affect Objective Data Active Medications Acetaminophen (Acetaminophen 325 Mg Tablet) 650 mg PO Q6H PRN PRN Reason: Pain, Mild (Pain Scale 1-3) Last Admin: 12/29/21 07:29 Dose: 650 mg Documented By: GIACOMO Acetaminophen (Acetaminophen 325 Mg Tablet) 650 mg PO ONCE PRN PRN Reason: Pain, Mild (Pain Scale 1-3) Amlodipine Besylate (Amlodipine Besylate 10 Mg Tablet) 10 mg PO DAILY [facility]; Protocol Last Admin: 01/02/22 09:04 Dose: 10 mg Documented By: JORGE Carvedilol (Carvedilol 12.5 Mg Tablet) 25 mg PO BID [facility]; Protocol Last Admin: 01/02/22 09:04 Dose: 25 mg Documented By: JORGE Fentanyl (Fentanyl Citrate/Pf 100 Mcg/2 Ml Vial) 25 mcg IVPUSH Q5M PRN; Protoco l PRN Reason: Pain, Moderate (Pain Scale 4-6 Last Admin: 12/28/21 22:24 Dose: 25 mcg Documented By: CATARINO Fentanyl (Fentanyl Citrate/Pf 100 Mcg/2 Ml Vial) 25 mcg IVPUSH Q5M PRN; Pr otocol PRN Reason: Pain, Moderate (Pain Scale 4-6 Heparin Sodium (Porcine) (Heparin Sodium,Porcine 5,000 Unit/Ml Vial) 5,000 unit SUBCUT Q8H [facility] Last Admin: 01/02/22 00:15 Dose: Not Given Documented By: FLAKITA Non-Admin Reason: ON HOLD PER RN REPORT Hydralazine HCl (Hydralazine Hcl 25 Mg Tablet) 25 mg PO TID [facility]; Protocol Last Admin: 01/02/22 09:04 Dose: 25 mg Documented By: JORGE Lorazepam (Lorazepam 1 Mg Tablet) 1 mg PO Q6H PRN PRN Reason: Anxiety Last Admin: 12/29/21 03:46 Dose: 1 mg Documented By: CATARINO Melatonin (Melatonin 3 Mg Tablet) 6 mg PO BEDTIME PRN PRN Reason: Insomnia Ondansetron HCl (Ondansetron Hcl 4 Mg/2 Ml Vial) 4 mg IVPUSH ONCE PRN PRN Reason: Nausea and Vomiting Ondansetron HCl (Ondansetron Hcl 4 Mg/2 Ml Vial) 4 mg IVPUSH ONCE PRN PRN Reason: Nausea and Vomiting Ondansetron HCl (Ondansetron Hcl 4 Mg/2 Ml Vial) 4 mg IVPUSH ONCE PRN PRN Reason: Nausea and Vomiting Oxycodone HCl (Oxycodone Hcl Immed Release 5 Mg Tablet) 5 mg PO Q4H PRN PRN Reason: Pain, Moderate (Pain Scale 4-6 Last Admin: 12/31/21 19:16 Dose: 5 mg Documented By: CATARINO Oxycodone HCl (Oxycodone Hcl Immed Release 5 Mg Tablet) 5 mg PO ONCE PRN PRN Reason: Pain, Severe (Pain Scale 7-10) Senna/Docusate Sodium (Sennosides/Docusate Sodium Tablet) 2 tab PO BID PRN PRN Reason: constipation Sodium Chloride (0.9 % Sodium Chloride Flush 3 Ml Syringe) 3 ml IVFLUSH QSPAFT [facility] Last Admin: 01/02/22 09:03 Dose: 3 ml Documented By: JORGE Labs CBC & Chem 7: 01/02/22 06:03 01/02/22 06:03 Labs: Laboratory Results - last 24 hr 01/02/22 01/02/22 06:03 06:03 MCV 85.6 MCH 27.4 MCHC 32.0 RDW 15.0 Plt Count 258 MPV 9.5 Immature Gran % (Auto) 0.6 H Neut % (Auto) 72.2 Lymph % (Auto) 19.6 L [place] % (Auto) 5.3 Eos % (Auto) 2.1 Baso % (Auto) 0.2 Lymph # (Auto) 2.8 [place] # (Auto) 0.8 Eos # (Auto) 0.3 Baso # (Auto) 0.0 Abs Immat Gran (auto) 0.09 H Absolute Neuts (auto) 10.2 H Absolute Nucleated RBC 0.000 Nucleated RBC % (auto) 0.0 Anion Gap 17 Estim Creat Clear Calc 120.4 Estimated GFR > 60 Fasting Glucose 144 H Calcium 8.4 Total Bilirubin 0.8 AST 42 H ALT 60 H Alkaline Phosphatase 201 H Total Protein 5.7 L Albumin 3.3 L Assessment and Plan (1) Hydroureteronephrosis: Status: Acute (2) Acute renal failure: Status: Acute (3) Colonic mass: Status: Acute (4) HTN (hypertension): Status: Acute Plan hospital d#8 for 56yo F with no chronic conditions presenting with difficulty urinating, found to have FLOR (SCr 11.49) and hydronephrosis likely due to peritoneal implants, iliac and retroperitoneal lymphadenopathy, sigmoid mass, possible hepatic + osseous metastases # suspected metastatic CA - colonoscopy on 12/30 showed only a tubular adenoma in the cecum - CT-guided biopsy of LN or peritoneal implant on 01/03, Heme/Onc consulted and will need outpt f/u # FLOR due to postrenal obstruction # hydroureteronephrosis - resolved s/p bilateral ureteral stents on 12/28. d/c Lopez today. outpt Urology follow-up # pathologic fracture of S1 - to consider IV bisphosphonate or denosumab as outpt # HTN - continue carvedilol + hydralazine + amlodipine # VTE ppx: SCDs In my clinical judgment, the patient requires continued hospitalization for the following reasons: biopsy Quality Stroke Does the patient have a stroke diagnosis?: No VTE Prior VTE?: No VTE Risk Level:: Medical - moderate - high VTE Device Contraindication: Treatment Not Indicated VTE Drug Contraindication: N/A - Med Ordered
--- NOTE | 2022-01-02 12:30 | PM.PNNEP ---
Subjective Subjective Date of Service: 01/02/22 Interval history: No abd pain Hematuria largely cleared; Hebert leaking around balloon Agree with removal of hebert now Physical Exam Vital Signs: Vital Signs: Last Vital Signs Temp 98.3 F 01/02/22 11:29 Pulse 74 01/02/22 11:29 Resp 20 01/02/22 11:29 BP 128/59 L 01/02/22 11:29 Pulse Ox 95 01/02/22 11:29 O2 Del Method 01/02/22 11:29 O2 Flow Rate 2 12/28/21 19:32 BMI result Body Mass Index 49.4 Const: Other: no acute distress General: cooperative, healthy appearing, comfortable, no acute distress, alert, awake, Physically active and anxious Orientation/consciousness: patient oriented x3 Limitations: no limitations and No language barrier HEENT: Head: Yes normal to inspection and Yes atraumatic Ears: hearing grossly normal bilaterally General nose exam: Normal external nose present Face and sinus: Yes normal facial exam Mouth: Normal oral and palatal mucosa present and moist mucous membranes Eyes: General: appearance normal, both eyes and all related structures EOM: EOMs intact bilaterally Neck: Neck: Yes normal visual inspection, Yes full ROM, Yes no meningeal signs, Yes trachea midline and Yes supple Chest: Chest palpation & inspection: normal inspection of the chest Resp: Other: clear to auscultation bilaterally no rales rhonchi or wheezes Effort & Inspection: normal respiratory effort, able to speak in complete sentences and no respiratory distress Auscultation: clear to auscultation bilaterally and diminished lung sounds Cardio: Other: no S4; positive S1-S2; no S3 murmurs rubs or gallops Rate: regular rate Heart sounds: S1 normal heart sound present and S2 normal heart sound present GI: Other: soft nontender nondistended with normoactive bowel sounds Inspection: Yes normal to inspection Palpation (GI): Soft to palpation, nontender, no guarding and not rigid : General: Yes no CVA tenderness Back/Spine/Pelvis: Back: no CVA tenderness Cervical Spine: normal cervical lordosis Thoracic/Lumbar Spine: thoracic and lumbar spine normal to inspection Skin: General skin exam: no rashes or lesions noted Rashes: no rashes Wounds: no wounds Neuro: General: patient oriented x3, tone normal, moves all extremities and no meningeal signs Gait exam (Neuro): Normal gait present Extrem: Other: no edema bilaterally General: Yes normal to inspection and Yes capillary refill normal Objective Data Labs CBC & Chem 7: 01/02/22 06:03 01/02/22 06:03 Labs: Laboratory Results - last 24 hr 01/02/22 01/02/22 06:03 06:03 WBC 14.1 H RBC 3.69 L Hgb 10.1 L Hct 31.6 L MCV 85.6 MCH 27.4 MCHC 32.0 RDW 15.0 Plt Count 258 MPV 9.5 Immature Gran % (Auto) 0.6 H Neut % (Auto) 72.2 Lymph % (Auto) 19.6 L [place] % (Auto) 5.3 Eos % (Auto) 2.1 Baso % (Auto) 0.2 Lymph # (Auto) 2.8 [place] # (Auto) 0.8 Eos # (Auto) 0.3 Baso # (Auto) 0.0 Abs Immat Gran (auto) 0.09 H Absolute Neuts (auto) 10.2 H Absolute Nucleated RBC 0.000 Nucleated RBC % (auto) 0.0 Sodium 141 Potassium 3.5 Chloride 102 Carbon Dioxide 26 Anion Gap 17 BUN 8 L Creatinine 0.66 Estim Creat Clear Calc 120.4 Estimated GFR > 60 Fasting Glucose 144 H Calcium 8.4 Total Bilirubin 0.8 AST 42 H ALT 60 H Alkaline Phosphatase 201 H Total Protein 5.7 L Albumin 3.3 L Microbiology Microbiology Results: Microbiology 12/26/21 21:59 Blood - Venous Blood Culture - Final No growth after 5 days. 12/26/21 21:59 Blood - Venous Blood Culture - Final No growth after 5 days. Procedures Date of Service Date of Service: 01/02/22 Assessment & Plan Assessment and plan (1) Hydroureteronephrosis: Status: Acute (2) Acute renal failure: Status: Acute Assessment and Plan: FLOR due to obstructive uropathy(resolved) Metabolically acidotic(resollved) BP better C/W Amlodipine 10 mg daily S/P Urology intervention Oncology seen patient Continue rest of current management Recommend: Remove hebert Stop IVF F/u with urology and oncology at discharge; I will sign off, call if further renal help needed (3) Colonic mass: Status: Acute (4) HTN (hypertension): Status: Acute Plan hospital d#8 for 56yo F with no chronic conditions presenting with difficulty urinating, found to have FLOR (SCr 11.49) and hydronephrosis likely due to peritoneal implants, iliac and retroperitoneal lymphadenopathy, sigmoid mass, possible hepatic + osseous metastases # suspected metastatic CA - colonoscopy on 12/30 showed only a tubular adenoma in the cecum - CT-guided biopsy of LN or peritoneal implant on 01/03, Heme/Onc consulted and will need outpt f/u # FLOR due to postrenal obstruction # hydroureteronephrosis - resolved s/p bilateral ureteral stents on 12/28. d/c Hebert today. outpt Urology follow-up # pathologic fracture of S1 - to consider IV bisphosphonate or denosumab as outpt # HTN - continue carvedilol + hydralazine + amlodipine # VTE ppx: SCDs In my clinical judgment, the patient requires continued hospitalization for the following reasons: biopsy Time Spent With Patient Time: Total time spent is greater than 50% in coordination of care (as documented) at patient's floor/unit and/or counseling patient: Progress Note: Quality Stroke Does the patient have a stroke diagnosis?: No
[2022-01-02] MEDS: Acetaminophen 325 MG TABLET 650 MG PO (15:06)
[2022-01-02] MEDS: LORazepam 1 MG TABLET PO (15:07)
[2022-01-02 15:55] VITALS: BP 151/65; PULSE 86; RESP 17; TEMP 37.2; O2SAT 94
--- NOTE | 2022-01-02 16:19 | PC.NURSE ---
Lopez cath DC w/o complications at 16:15 per MD order. Lopez empty for 200cc. Dark amira color urine. Will plan post void assessment at around 19:00.
[2022-01-02 19:25] VITALS: BP 170/74; PULSE 94; RESP 19; TEMP 36.8; O2SAT 94
[2022-01-02] MEDS: oxyCODONE HCl Immed Release 5 MG TABLET PO (20:12)
[2022-01-02 23:31] VITALS: BP 123/58; PULSE 81; RESP 18; TEMP 36.7; O2SAT 96
[2022-01-03] VITALS (7 sets, daily range): BP systolic 128–155; BP diastolic 56–66; PULSE 84–95; RESP 18–20; TEMP 36.2–36.9; O2SAT 94–96
[2022-01-03] MEDS: carvediloL 12.5 MG TABLET 25 MG PO (08:42)
[2022-01-03] MEDS: hydrALAZINE HCl 25 MG TABLET PO ×2 (08:43→15:48)
[2022-01-03] MEDS: LORazepam 1 MG TABLET PO (08:43)
[2022-01-03] MEDS: 0.9 % Sodium Chloride Flush 3 ML SYRINGE IVFLUSH ×2 (08:43→15:49)
[2022-01-03] MEDS: amLODIPine Besylate 10 MG TABLET PO (08:43)
--- NOTE | 2022-01-03 13:04 | HO.RADPN ---
RADIOLOGY Narrative Narrative: CT guided left retroperitoneal lymph node biopsy using coaxial system. 5 20 g core biopsies and 2 22g FNA specimens using coaxial system. No complication.
--- NOTE | 2022-01-03 14:34 | PM.DS ---
DS: Providers Provider Date of Service: 01/03/22 Date of admission: 12/26/21 22:55 Date of discharge: 01/03/22 Primary care physician: Steve Austin MD Consults: 12/26/21 22:55 Consult to Nephrology Routine Consulting Provider: Jay Pink Reason for consultation: FLOR 12/27/21 03:29 Consult to Hematology / Oncology Routine Consulting Provider: Jaqueline Olivier Reason for consultation: Sigmoid mass Consult to Nephrology Routine Consulting Provider: Jay Pink Reason for consultation: flor Consult to Urology Routine Consulting Provider: Deshawn Kinney Reason for consultation: hydronephrosis; post renal FLOR 12/29/21 13:55 Consult to Gastroenterology Stat Consulting Provider: Kai Caldwell Reason for consultation: sigmoid mass Has provider been notified: Yes DS: Diagnosis Discharge Diagnosis (1) Hydroureteronephrosis: Status: Acute (2) Acute renal failure: Status: Acute (3) Colonic mass: Status: Acute (4) HTN (hypertension): Status: Acute (5) Hypertension: Status: Acute (6) Morbid obesity: Status: Acute DS: Summary Hospital Course Hospital Course: From admission H+P by hospitalist Pasha Rausch, 12/26/21: 56-year-old with no significant past medical history presented to the hospital today with a chief complaint of difficulty urination.? Patient mentioned that over the past 2 months she has been having urinary complaints, has been having urinary frequency urgency initially, has seen urgent care at least couple times and has received antibiotics as outpatient.? Denies any fevers and chills.? Denies any abdominal pain.? Denies any chest pain or palpitations.? Denies any prior history of hypertension, reports he has white coat hypertension.? Denies taking any home medications.? Denies any smoking or illicit drug use.? Denies any headaches blurry visions, numbness tingling or focal weakness.? Review of all other systems is negative except mentioned above ER course: Per ER team patient's urinalysis was negative, exam was benign, on labs noted to have elevated creatinine of 1.49, low bicarb; patient was started on bicarb drip.? CT scan showed pelvic mass-sigmoid colon mass/retroperitoneal lymphadenopathy/moderate hydronephrosis and perinephric stranding as well as hydroureter leading to the bladder without tear mechanical obstructive etiology possible osseous metastasis.? Concerning for cancer.? Urology Dr. Kinney was notified-recommended judicious fluids and will place a stent in the morning.? Admitted for further management This 56yo F with no chronic conditions presenting with difficulty urinating was found to have FLOR (SCr 11.49) and hydronephrosis likely due to peritoneal implants, iliac and retroperitoneal lymphadenopathy, sigmoid mass, with possible hepatic + osseous metastases. She was admitted to the [facility]. She underwent bilateral ureteral stenting on 12/28/21 with complete normalization of her renal function. Colonoscopy on 12/30/21 showed only a tubular adenoma in the cecum; so on 01/03/22, she underwent CT-guided left retroperitoneal lymph node biopsy using coaxial system. Five 20 g core biopsies and 2 22g FNA specimens were taken using coaxial system. No complications. She will follow up with Dr Kai Hall from Oncology for pathology results and treatment. She should also follow up with Dr Deshawn Kinney from Urology and her primary care doctor. She was found to have markedly elevated blood pressure and was started on carvedilol and amlodipine for blood pressure control. Time Spent with Patient Time attestation: Total time spent providing and/or coordinating discharge services: Discharge coordination time: Greater than 30 minutes Quality: Safe Use of Opioids Does Pt have an Active Cancer Diagnosis on the Problem List?: No Quality: Stroke Does the patient have a stroke diagnosis?: No Physical Exam Vital Signs: Vital Signs: Last Vital Signs Temp 98.2 F 01/03/22 13:19 Pulse 95 01/03/22 13:19 Resp 18 01/03/22 13:19 BP 128/56 L 01/03/22 13:19 Pulse Ox 95 01/03/22 13:19 O2 Del Method 01/03/22 13:19 O2 Flow Rate 2 01/03/22 12:50 BMI result Body Mass Index 49.4 Gen: in no acute distress HEENT: sclera anicteric, moist mucus membranes Neck: supple Lungs: clear to auscultation bilaterally Heart: regular rate and rhythm, no murmurs Abd: soft, non-tender, non-distended, obese Ext: no edema Skin: warm/well-perfused Neuro: alert and oriented x3, no focal findings Psych: appropriate affect DS: Data Data Completed and Pending Completed studies during hospitalization [Text1]: Laboratory Results WBC 14.1 X10*3/uL (4.8-10.8) H 01/02/22 06:03 RBC 3.69 X10*6/uL (4.20-5.50) L 01/02/22 06:03 Hgb 10.1 g/dl (12.0-16.0) L 01/02/22 06:03 Hct 31.6 % (37.0-47.0) L 01/02/22 06:03 MCV 85.6 fL (80.0-98.0) 01/02/22 06:03 MCH 27.4 pg (27.0-33.0) 01/02/22 06:03 MCHC 32.0 g/dl (31.0-35.0) 01/02/22 06:03 RDW 15.0 % (11.0-16.0) 01/02/22 06:03 Plt Count 258 X10*3/uL (160-400) 01/02/22 06:03 MPV 9.5 fL (9.4-12.3) 01/02/22 06:03 Immature Gran % (Auto) 0.6 % (0.0-0.4) H 01/02/22 06:03 Neut % (Auto) 72.2 % (45-73) 01/02/22 06:03 Lymph % (Auto) 19.6 % (20-40) L 01/02/22 06:03 [place] % (Auto) 5.3 % (2-11) 01/02/22 06:03 Eos % (Auto) 2.1 % (0-4) 01/02/22 06:03 Baso % (Auto) 0.2 % (0-2) 01/02/22 06:03 Lymph # (Auto) 2.8 X10*3/uL (1.2-4.9) 01/02/22 06:03 [place] # (Auto) 0.8 X10*3/uL (0.1-1.2) 01/02/22 06:03 Eos # (Auto) 0.3 X10*3/uL (0.0-0.4) 01/02/22 06:03 Baso # (Auto) 0.0 X10*3/uL (0.0-0.2) 01/02/22 06:03 Abs Immat Gran (auto) 0.09 X10*3/uL (0.00-0.03) H 01/02/22 06:03 Absolute Neuts (auto) 10.2 x10*3/uL (2.0-8.3) H 01/02/22 06:03 Absolute Nucleated RBC 0.000 X10*3/uL (0.0-0.012) 01/02/22 06:03 Nucleated RBC % (auto) 0.0 /100WBC (0.0-0.2) 01/02/22 06:03 PT 12.7 SEC (10.0-13.1) 12/31/21 06:08 INR 1.1 (0.9-1.1) 12/31/21 06:08 Sodium 141 mmol/L (135-145) 01/02/22 06:03 Potassium 3.5 mmol/L (3.3-5.1) 01/02/22 06:03 Chloride 102 mmol/L (96-108) 01/02/22 06:03 Carbon Dioxide 26 mmol/L (22-29) 01/02/22 06:03 Anion Gap 17 (12-20) 01/02/22 06:03 BUN 8 mg/dL (9-16) L 01/02/22 06:03 Creatinine 0.66 mg/dL (0.5-1.4) 01/02/22 06:03 Estim Creat Clear Calc 120.4 01/02/22 06:03 Estimated GFR > 60 01/02/22 06:03 Random Glucose 219 mg/dL (60-115) H 12/28/21 23:57 Fasting Glucose 144 mg/dL (60-99) H 01/02/22 06:03 Lactic Acid 0.7 mmol/L (0.5-2.0) 12/26/21 21:59 Calcium 8.4 mg/dL (8.4-10.2) 01/02/22 06:03 Magnesium 1.6 mg/dL (1.6-2.6) 12/28/21 23:57 Total Bilirubin 0.8 mg/dL (0.0-1.0) 01/02/22 06:03 Direct Bilirubin 0.3 mg/dL (0.0-0.5) 12/26/21 19:49 AST 42 U/L (5-31) H 01/02/22 06:03 ALT 60 U/L (0-31) H 01/02/22 06:03 Alkaline Phosphatase 201 U/L (39-117) H 01/02/22 06:03 Total Protein 5.7 g/dL (6.5-8.0) L 01/02/22 06:03 Albumin 3.3 g/dL (3.5-5.0) L 01/02/22 06:03 Lipase 46 U/L (8-78) 12/26/21 19:49 Alpha Fetoprotein 4.7 ng/mL 12/27/21 04:55 Carcinoembryonic Ag 2.10 ng/mL 12/27/21 04:55 Urine Color Cancelled 12/26/21 13:51 Urine Appearance Cancelled 12/26/21 13:51 Urine pH Cancelled 12/26/21 13:51 Ur Specific [place] Cancelled 12/26/21 13:51 Urine Protein Cancelled 12/26/21 13:51 Urine Glucose (UA) Cancelled 12/26/21 13:51 Urine Ketones Cancelled 12/26/21 13:51 Urine Blood Cancelled 12/26/21 13:51 Urine Nitrite Cancelled 12/26/21 13:51 Ur Leukocyte Esterase Cancelled 12/26/21 13:51 COVID-19 (PRADEEP) Negative (Negative) 12/26/21 21:59 COVID-19 Clin Com See Note 12/26/21 21:59 Impressions Abdomen/Pelvis CT 12/26/21 22:49 IMPRESSION: * Probable sigmoid colonic mass. 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 Scattered peritoneal implants most notably in the bilateral lower quadrants. One of the peritoneal implants or pathologic lymph nodes would be fairly easy to sample by CT-guided biopsy. * Qenr-la-jhyinane hydronephrosis and perinephric stranding as well as hydroureter leading to the bladder, without clear mechanical obstructive etiology evident. It is possible that peritoneal implants in the region of the ureterovesical junctions could be the etiology. * Heterogeneously attenuating hepatic parenchyma concerning for infiltrative metastatic disease and/or hepatic steatosis. * Possible osseous metastases, particularly within the S1 vertebral body with accompanying fracturing of the superior endplate. Guidance Fluoroscopy 12/28/21 18:10 IMPRESSION: Fluoroscopic guidance for bilateral pyelogram and ureteral stent placement. Please refer to procedural report for further information. Pending studies at discharge: Pending at discharge 01/03/22 13:00 Surgical Path [Surgical] [PTH] Routine 01/03/22 13:01 Cytology [PTH] Routine Discharge Plan Discharge Patient Disposition: Home, Self-Care Discharge Diagnosis: acute kidney injury and hydronephrosis likely due to peritoneal implants, iliac and retroperitoneal lymphadenopathy, sigmoid mass, possible hepatic + osseous metastases hypertension Referrals: Deshawn Kinney MD [Physician] - 1 Week Kai Hall MD [Physician] - 1 Week Steve Austin MD [Primary Care Provider] - 1 Week Discharge Medications: New amlodipine 10 mg Tablet 10 mg PO DAILY Qty: 30 0RF Protocol: Hold for SBP< HOLD for SBP < : 90 carvedilol 25 mg tablet 25 mg PO BID Qty: 60 0RF Rx Instructions: must administer with a meal/food Discharge Orders: Discharge Order (Routine); Ordered 01/03/22 Ordered By: Neisha Schwartz Diet: Advance to usual diet Activity on Discharge: As tolerated Stand Alone Forms: Patient Portal Discharge page, Work/School Release Care Plan Goals: diagnosis and treatment of abdominal malignancy blood pressure control Health Concerns: FLOR (SCr 11.49) and hydronephrosis likely due to peritoneal implants, iliac and retroperitoneal lymphadenopathy, sigmoid mass, possible hepatic + osseous metastases Plan of Treatment: follow up with Dr Kai Hall from Oncology within 1 week: Address: [address] [place] [address] [address], [place] [address] Deshawn Kinney from Urology within 1 month: Address: [address] [place] [address] [address], [place] [address] start blood pressure medications: carvedilol 25 mg twice daily PLUS amlodipine 10 mg once daily Please follow up with your primary care doctor within 1 week. Please return to the hospital if you experience recurrent or worsening symptoms. Assessment: See Discharge Summary.
--- NOTE | 2022-01-03 18:37 | PC.NURSE ---
Alert and oriented. Denies pain, VSS, afebrile, no acute resp. distress noted. Medicated per JUN. Off the unit for biopsy. Returned to the unit post biopsy, Left lower back biopsy site cover with band aid, CDI. Tolerated food post procedure well. New order to discharge patient home. Went over discharge instructions, follow up apt and medication administrations with patient, verbalized understanding back. Patient left via car with her friend.
== END 2022-01-03 18:00 | disposition home or self-care (01) | DRG 660 ==
LOC: HO.ED 21:03 → HO.EDOVER 23:05 → HO.S3 12-27 07:49 → HO.IMC 12-28 15:19
PROVIDERS: Hospitalist; Internal Medicine; Internal Medicine Gastroenterology; Physician Assistant; Radiology Diagnostic Radiology; Urology; Admitting Provider Hospitalist; Emergency Provider Internal Medicine; PCP Family Medicine; Visit Provider Family Medicine
PROC: 0T788DZ Dilation of Bilateral Ureters with Intraluminal Device, Via Natural or Artificial Opening Endoscopic (ICD-10-PCS; principal; 2021-12-28 18:30)
PROC: 0DJD8ZZ Inspection of Lower Intestinal Tract, Via Natural or Artificial Opening Endoscopic (ICD-10-PCS; CPT 45378; principal; 2021-12-30 07:30)
PROC: 07BD3ZX Excision of Aortic Lymphatic, Percutaneous Approach, Diagnostic (ICD-10-PCS; principal; 2022-01-03 10:30)
DX: N13.30 Unspecified hydronephrosis (principal); C78.7 Secondary malignant neoplasm of liver and intrahepatic bile duct; E87.2 Acidosis; Z68.42 Body mass index [BMI] 45.0-49.9, adult; C79.51 Secondary malignant neoplasm of bone; M84.58XA Pathological fracture in neoplastic disease, other specified site, initial encounter for fracture; N17.9 Acute kidney failure, unspecified; D12.0 Benign neoplasm of cecum; R31.9 Hematuria, unspecified; R59.0 Localized enlarged lymph nodes; E66.01 Morbid (severe) obesity due to excess calories; E86.0 Dehydration; I10 Essential (primary) hypertension; I16.0 Hypertensive urgency; Z88.1 Allergy status to other antibiotic agents; Z20.822 Contact with and (suspected) exposure to COVID-19; Z87.440 Personal history of urinary (tract) infections
CPT/HCPCS: 10009; 36415; 49180; 51798; 74176; 77012; 80048; 80053; 80076; 82105; 82378; 83605; 83690; 83735; 85025; 85610; 87040; 87635; 88173; 88184; 88185; 88300; 88305; 88333; 88341; 88342; 93005; 96361; 96374; 96375; 96376; 99152; 99153; 99285; C1758; C1769; C2617; J2250; J2543; J3010